=== PATIENT | female | born 1940 | race Caucasian/White ===

== ENCOUNTER 2016-10-25 14:16 | Inpatient (IN) | payer MEDICARE ==
[2016-10-25] VITALS (16 sets, daily range): BP systolic 137–198; BP diastolic 65–90; PULSE 62–84; RESP 18–22; TEMP 98.7–100.3; O2SAT 90–100
[~2016-10-25] VITALS: Ht 157.5 cm; Wt 88.6 kg
[~2016-10-25 14:16] MED LIST: ADVA250A INH; ATEN25TA PO; DIAZ5TAB PO; FURO1TAB62 PO; HYDR-3583 PO; HYDR25TA5 PO; LOVA20TA PO; OMEP20TA PO; VENTAER INH; ZETI10TA5 PO; ZOLO100T PO
[2016-10-25 14:53] LABS: MEAN CORPUSCULAR HGB CONC 29.1 % (32.0-36.0)
--- NOTE | 2016-10-25 14:54 | PD ---
HPI Chief Complaint: Respiratory Symptoms Time Seen by Provider: 14:32 Travel History International Travel<30 days: No Contact w/Intl Traveler<30days: No Traveled to known affect area: No History of Present Illness HPI 76yo F with PMH of COPD on home O2 4L NC, ?CHF but chronic bilateral lower ext edema, HTN, DM was sent here for hypoxemia. Pt has a visiting nurse that comes to check on her and as per my nurse, her O2 sat was in the 60s at home and it was in the 80s on 4 L NC. Pt placed on BIPAP and saturating at 94-95% on 50% Fi O2. Pt states she had chest pain this morning but denies any sob, fever, cough, n/v, abdominal pain. PFSH Past Medical History Blood Disorders: No Anxiety: Yes Depression: Yes Cancer: No Congestive Heart Failure: Yes COPD: Yes Diabetes: Yes Endocrine: No GERD: Yes Genitourinary: No Hiatal Hernia: Yes Hypertension: Yes Immune Disorder: No Neurologic: No Reproductive: No Respiratory: Yes Menopausal: Yes Past Surgical History Body Medical Devices: CERVICAL FUSION Other Surgery: Yes (RIGHT KNEE) Social History Alcohol Use: No Tobacco Use: No Substance Use: No Allergies-Medications (Allergen,Severity, Reaction): Coded Allergies: Scallop (Verified Allergy, Mild, CONFUSION, 04/30/16) Reported Meds & Prescriptions Reported Meds & Active Scripts Active Reported Metformin (Metformin HCl) 1,000 Mg Tab 1,000 Mg PO DAILYPC BREAKFAST With a meal Metformin (Metformin HCl) 500 Mg Tab 500 Mg PO DAILYPC EVENING MEAL With a meal Lisinopril 10 Mg Tab 10 Mg PO DAILY Lovastatin 40 Mg Tab 80 Mg PO DAILY Alprazolam 0.5 Mg Tab 0.5 Mg PO HS Ventolin Hfa 18 GM Inh (Albuterol Sulfate) 90 Mcg/Act Aer 2 Puff INH DAILY Advair Diskus Inh (Fluticasone-Salmeterol Inh) 250-50 Mcg/Blist Aer 1 Puff INH BID Rinse mouth after use. Hydrocodone-Acetaminophen 10-325 mg Tab 1 Tab PO BID Diazepam 5 Mg Tab 5 Mg PO DAILY Zoloft (Sertraline HCl) 100 Mg Tab 100 Mg PO BID Omeprazole 20 Mg Tab 20 Mg PO DAILY Hydrochlorothiazide 25 Mg Tab 25 Mg PO DAILY Lasix (Furosemide) 20 Mg Tab 20 Mg PO DAILY Zetia (Ezetimibe) 10 Mg Tab 10 Mg PO DAILY Atenolol 25 Mg Tab 25 Mg PO DAILY Review of Systems Except as stated in HPI: all other systems reviewed are Neg Physical Exam Narrative GEN: 76yo F in moderate distress. SKIN: Warm and dry. HEAD: Normocephalic, atraumatic. ENT: Throat: Clear. Eyes: Pupils 3mm bilaterally and reactive to light. NECK: Trachea midline. No JVD. CV: S1, S2. Lungs: Crackles in lung bases. +Accessory muscle use. RR: 30s. Abd: soft, NT/ND. No rebound tenderness or guarding. EXT: Bilateral lower ext edema. NEURO: AAOx2. No focal neurologic deficits. Data Data Last Documented VS Vital Signs Date Time Temp Pulse Resp B/P Pulse Ox O2 Delivery O2 Flow Rate FiO2 10/25/16 16:40 80 20 137/89 97 BiPAP 50 10/25/16 14:26 98.7 Orders Electrocardiogram (10/25/16 ) Complete Blood Count With Diff (10/25/16 14:51) Basic Metabolic Panel (Bmp) (10/25/16 14:51) B-Type Natriuretic Peptide (10/25/16 14:51) Act Partial Throm Time (Ptt) (10/25/16 14:51) Prothrombin Time / Inr (Pt) (10/25/16 14:51) Magnesium (Mg) (10/25/16 14:51) Ckmb (Isoenzyme) Profile (10/25/16 14:51) Troponin I (10/25/16 14:51) Arterial Blood Gas (Abg) (10/25/16 14:51) Blood Culture (10/25/16 14:51) Iv Access Insert/Monitor (10/25/16 14:51) Ecg Monitoring (10/25/16 14:51) Oximetry (10/25/16 14:51) Oxygen Administration (10/25/16 14:51) Chest, Single Ap (10/25/16 14:51) Sodium Chloride 0.9% Flush (Ns Flush) (10/25/16 15:00) Furosemide Inj (Lasix Inj) (10/25/16 15:00) Methylprednisolone So Succ Inj (Solumedr (10/25/16 15:00) Albuterol-Ipratropium Neb (Duoneb Neb) (10/25/16 15:00) Resp Bipap / Cpap Non Invas Vt (10/25/16 14:51) Arterial Blood Gas (Abg) (10/25/16 ) Urinary Catheter Insert/Apply (10/25/16 16:37) Admit Order (Ed Use Only) (10/25/16 17:28) Labs Laboratory Tests Test 10/25/16 10/25/16 10/25/16 14:10 15:50 16:45 White Blood Count 5.0 TH/MM3 Red Blood Count 3.60 MIL/MM3 Hemoglobin 8.1 GM/DL Hematocrit 27.7 % Mean Corpuscular Volume 76.9 FL Mean Corpuscular Hemoglobin 22.4 PG Mean Corpuscular Hemoglobin 29.1 % Concent Red Cell Distribution Width 19.1 % Platelet Count 256 TH/MM3 Mean Platelet Volume 7.4 FL Neutrophils (%) (Auto) 79.6 % Lymphocytes (%) (Auto) 9.4 % Monocytes (%) (Auto) 8.8 % Eosinophils (%) (Auto) 1.9 % Basophils (%) (Auto) 0.3 % Neutrophils # (Auto) 4.0 TH/MM3 Lymphocytes # (Auto) 0.5 TH/MM3 Monocytes # (Auto) 0.4 TH/MM3 Eosinophils # (Auto) 0.1 TH/MM3 Basophils # (Auto) 0.0 TH/MM3 CBC Comment DIFF FINAL Differential Comment Prothrombin Time 10.1 SEC Prothromb Time International 0.9 RATIO Ratio Activated Partial 24.0 SEC Thromboplast Time Sodium Level 143 MEQ/L Potassium Level 4.7 MEQ/L Chloride Level 98 MEQ/L Carbon Dioxide Level GREATER THAN 45.0 MEQ/L Anion Gap 0 MEQ/L Blood Urea Nitrogen 17 MG/DL Creatinine 0.85 MG/DL Estimat Glomerular Filtration 65 ML/MIN Rate Random Glucose 130 MG/DL Calcium Level 8.2 MG/DL Magnesium Level 2.5 MG/DL Total Creatine Kinase 52 U/L Troponin I 0.02 NG/ML B-Type Natriuretic Peptide 314 PG/ML Blood Gas Puncture Site RT RADIAL RT RADIAL Blood Gas Patient Temperature 98.6 98.6 Blood Gas HCO3 44 mmol/L 44 mmol/L Blood Gas Base Excess 16.3 mmol/L 16.1 mmol/L Blood Gas Oxygen Saturation 88 % 92 % Arterial Blood pH 7.24 7.23 Arterial Blood Partial 107 mmHg 110 mmHg Pressure CO2 Arterial Blood Partial 66 mmHG 77 mmHG Pressure O2 Arterial Blood Oxygen Content 10.5 Vol % 11.3 Vol % Arterial Blood 2.3 % 2.2 % Carboxyhemoglobin Arterial Blood Methemoglobin 0.6 % 0.5 % Blood Gas Hemoglobin 8.4 G/DL 8.7 G/DL Oxygen Delivery Device BIPAP BIPAP Blood Gas Ventilator Setting EPAP 6/IPAP 12 EPAP 6/IPAP15 Blood Gas Inspired Oxygen 40 % 50 % MDM Medical Decision Making Medical Screen Exam Complete: Yes Emergency Medical Condition: Yes Interpretation(s) EKG: NSR 87bpm. Normal axis. No ST segment elevation or depression. Differential Diagnosis Hypercapnic respiratory failure vs. hypoxic respiratory failure vs. COPD exacerbation vs. CHF exacerbation Narrative Course 76yo F with hypoxemia found on pulse ox at home from visiting nurse was sent here for further evaluation. Pt is AAOx2 and following commands. Pt was placed on 100% nonrebreather by nurse when I went to evaluate her because she was saturating in the 80s on 4 L NC. Pt uses 4 L NC at home. Labs reviewed, no leukocytosis. H/H low at 8.1/27.7 but pt had that before. BNP mildly elevated at 314. Troponin negative. Pt given lasix 40mg IV and soni catheter placed. Pt able to diuresis about 1200cc of urine and feels better. CXR showed cardiomegaly with interstitial edema. Small to moderate left pleural effusion and probable adjacent atelectasis. ABG showed hypercapnia with CO2 107 and O2 sat 88. pH of 7.24. This was on BIPAP 12/6 at 40%. I changed the setting to BIPAP 15/6 with Fi O2 50%. Pt was reevaluated at bedside and is doing better on the BIPAP. Pt is still AAOx2, following commands and states she feels better. At this time, I am going to repeat ABG with this new setting since pt is improving clinically. Repeat ABG essentially unchanged from the first one. Pt reevaluated at bedside and is still AAOx2, states she is feeling better and doing well. Pt is following command and has good mental status. Discussed with Dr. Harley and she said her colleague Dr. Jurado will see her. Will continue to monitor mental status and intubate if mental status deteriorates. Pt reevaluated at bedside and around 6:30pm, pt pulled out her mask and started pulling at her wires. Pt is now AAOx1 and more confused than before. Pt emergently intubated with succinylcholine and etomidate. I called Dr. Jurado and updated him on her status. CXR ordered. CXR showed interval intubation. Slight worsening aeration. Critical Care Narrative Aggregate critical care time was 90 minutes. Time to perform other separately billable procedures was not included in the critical care time. My time did not include minutes spent treating any other patients simultaneously or on activities that did not directly contribute to the patient's treatment. The services I provided to this patient were to treat and/or prevent clinically significant deterioration that could result in: cardiovascular collapse or . I provided critical care services requiring my management, as noted below: Chart data review, documentation time, medication orders and management, vital sign assessments/reviewing monitor data, ordering and reviewing lab tests, ordering and interpreting/reviewing x-rays and diagnostic studies, care of the patient and discussion of the patient with the admitting physicians. Procedures Procedure Narrative The patient was put in optimal position for the procedure. Rapid sequence intubation was initiated by me using 20 milligrams of etomidate IV and 100 milligrams of succinylcholine IV. The patient was intubated with a 7.5 cuffed endotracheal tube. Tube placement was confirmed by visualization of the tube and balloon passing through the cords, capnometry and subsequent chest x-ray. Breath sounds were equal and well aerated bilaterally postintubation. No breath sounds over stomach. Patient tolerated procedure well. Diagnosis Primary Impression: Hypercapnic respiratory failure Qualified Code: J96.22 - Acute on chronic respiratory failure with hypercapnia Admitting Information Admitting Physician Requests: Coleen Braxton DO October 25, 2016 14:54
[2016-10-25] MEDS ORDERED: FUROSEMIDE 40 MG/4 ML VIAL IVP ONE (15:00)
[2016-10-25] MEDS ORDERED: SODIUM CHLORIDE 0.9% FLUSH 10 ML FLUSH IVF PRN (15:00)
[2016-10-25] MEDS ORDERED: methylPREDNISolone SOD SUCC 125 MG/2 ML VIAL IVP ONE (15:00)
[2016-10-25] MEDS: RESP: ALBUTEROL 2.5 MG/IPRATROPIUM 0.5 MG NEB (SCH) INH ×2 (15:39→15:40)
[2016-10-25 15:48] LABS: BASOPHIL % 0.3 % (0.0-2.0); EOSINOPHIL # 0.1 TH/MM3 (0-0.4); EOSINOPHIL % 1.9 % (0.0-4.0); HEMATOCRIT 27.7 % (35.0-46.0); LYMPH % 9.4 % (9.0-44.0); LYMPHOCYTE # 0.5 TH/MM3 (1.0-4.8); MEAN CELL VOLUME 76.9 FL (80.0-100.0); MEAN CORPUSCULAR HEMOGLOBIN 22.4 PG (27.0-34.0); MONO % 8.8 % (0.0-8.0); NEUT % 79.6 % (16.0-70.0); PLATELET COUNT 256 TH/MM3 (150-450); RED CELL DISTRIBUTION WIDTH 19.1 % (11.6-17.2)
[2016-10-25 15:49] LABS: HEMO FLAGS DIFF FINAL
[2016-10-25 15:59] LABS: INTERNATIONAL NORMALIZED RATIO 0.9 RATIO; PROTHROMBIN TIME - PATIENT 10.1 SEC (9.8-11.6)
--- NOTE | 2016-10-25 15:59 | RADRPT ---
EXAM DATE/TIME: 10/25/2016 15:39 [facility] COMPARISON: CHEST SINGLE AP, September 10, 2013, 21:38. INDICATIONS : Short of breath, lower extremity edema MEDICAL HISTORY : cardiomegaly SURGICAL HISTORY : cervical spine ENCOUNTER: Initial ACUITY: 1 day PAIN SCORE: Non-responsive. LOCATION: Bilateral chest FINDINGS: A single view of the chest demonstrates small moderate left pleural effusion with left basilar densit y. Heart enlarged. Slight interstitial edema. Pulmonary arteries appear enlarged. Osseous structures are intact. CONCLUSION: 1. Cardiomegaly with interstitial edema. 2. Small to moderate left pleural effusion and probable adjacent atelectasis. David Quintana MD on October 25, 2016 at 15:56 Board Certified Radiologist. This report was verified electronically.
[2016-10-25 16:05] LABS: BLOOD GAS BASE EXCESS 16.3 mmol/L (-2-2); BLOOD GAS CARBOXYHEMOGLOBIN 2.3 % (0-4); BLOOD GAS HCO3 44 mmol/L (22-26); BLOOD GAS METHEMOGLOBIN 0.6 % (0-2); BLOOD GAS O2 HGB SATURATION 88 % (90-100); BLOOD GAS OXYGEN CONTENT 10.5 Vol % (12.0-20.0); BLOOD GAS PCO2 107 mmHg (38-42); BLOOD GAS PO2 66 mmHG (61-120); BLOOD GAS TOTAL HGB 8.4 G/DL (12.0-16.0); CRITICAL VALUE YES; DRAW SITE RT RADIAL; FIO2 40 %; NUMBER OF ARTERIAL PUNCTURES 1; OXYGEN DEVICE BIPAP; TEMP CORR TO 98.6; VENT SETTINGS EPAP 6/IPAP 12
[2016-10-25 16:06] LABS: STAT YES; ULNAR PULSE PRESENT
[2016-10-25 16:16] LABS: BLOOD UREA NITROGEN 17 MG/DL (7-18); CHLORIDE 98 MEQ/L (98-107); GLOMERULAR FILTRATION RATE 65 ML/MIN (>89); MAGNESIUM 2.5 MG/DL (1.5-2.5); POTASSIUM 4.7 MEQ/L (3.5-5.1); SODIUM (NA) 143 MEQ/L (136-145)
[2016-10-25] MEDS ORDERED: ALPR0.5T3 PO (16:18)
[2016-10-25] MEDS ORDERED: LOVA40TA PO ×2 (16:18→16:23)
[2016-10-25 16:19] LABS: ANION GAP 0 MEQ/L (5-15); BICARBONATE GREATER THAN 45.0 MEQ/L (21.0-32.0); CREATINE KINASE 52 U/L (26-192)
[2016-10-25] MEDS ORDERED: METF500T PO (16:23)
[2016-10-25] MEDS ORDERED: METF1000 PO (16:23)
[2016-10-25] MEDS ORDERED: LISI10TA3 PO (16:23)
[2016-10-25 16:56] LABS: BLOOD GAS BASE EXCESS 16.1 mmol/L (-2-2); BLOOD GAS CARBOXYHEMOGLOBIN 2.2 % (0-4); BLOOD GAS HCO3 44 mmol/L (22-26); BLOOD GAS METHEMOGLOBIN 0.5 % (0-2); BLOOD GAS O2 HGB SATURATION 92 % (90-100); BLOOD GAS OXYGEN CONTENT 11.3 Vol % (12.0-20.0); BLOOD GAS PCO2 110 mmHg (38-42); BLOOD GAS PO2 77 mmHG (61-120); BLOOD GAS TOTAL HGB 8.7 G/DL (12.0-16.0); TEMP CORR TO 98.6
[2016-10-25 16:59] LABS: CRITICAL VALUE YES; DRAW SITE RT RADIAL; FIO2 50 %; NUMBER OF ARTERIAL PUNCTURES 1; OXYGEN DEVICE BIPAP; STAT YES; ULNAR PULSE PRESENT; VENT SETTINGS EPAP 6/IPAP15
[2016-10-25] MEDS ORDERED: ETOMIDATE 20 MG/10 ML VIAL ONE (18:33)
[2016-10-25] MEDS ORDERED: SUCCINYLCHOLINE CHLORIDE 200 MG/10 ML VIAL ONE (18:34)
[2016-10-25] MEDS ORDERED: PROPOFOL 500 MG/50 ML INJ 50 ML ONE (18:41)
[2016-10-25] MEDS ORDERED: PROPOFOL 1000 MG/100 ML INJ 100 ML ONE (18:41)
[2016-10-25] MEDS ORDERED: SUCCINYLCHOLINE CHLORIDE 200 MG/10 ML VIAL IV PUSH ONE (18:45)
[2016-10-25] MEDS ORDERED: ETOMIDATE 20 MG/10 ML VIAL IV PUSH ONE (18:45)
[2016-10-25] MEDS ORDERED: PROPOFOL 1000 MG/100 ML INJ 100 ML IV SCH (19:00)
[2016-10-25] MEDS ORDERED: SODIUM CHLOR 0.9% 1000 ML INJ 1,000 ML IV SCH (19:18)
--- NOTE | 2016-10-25 19:21 | RADRPT ---
EXAM DATE/TIME: 10/25/2016 19:04 [facility] COMPARISON: CHEST SINGLE AP, October 25, 2016, 15:39. INDICATIONS : Post intubation. MEDICAL HISTORY : Cardiomegaly. SURGICAL HISTORY : Cervical spine surgery. ENCOUNTER: Initial ACUITY: 1 day PAIN SCORE: Non-responsive. LOCATION: Bilateral chest FINDINGS: Endotracheal tube is present with tip several centimeters above the chani. There is persistent conso lidation in the left lung base and developing airspace disease in the right base. Cardiac contours ar e grossly stable. CONCLUSION: Interval intubation. Slight worsening aeration Marv Humphrey MD on October 25, 2016 at 19:17 Board Certified Radiologist. This report was verified electronically.
--- NOTE | 2016-10-25 19:29 | HHI.HP ---
HPI Service Critical Care Medicine Primary Care Physician Jaiden Kate MD Admission Diagnosis Hypercapnic repsiratory failure Diagnosis: Travel History International Travel<30 Days: No Contact w/Intl Traveler <30 Da: No Traveled to Known Affected Are: No History of Present Illness 76-year-old female with past medical history of COPD on home O2 4 L nasal cannula, history of CHF with chronic lower extremity edema hypertension diabetes presented to emergency room with complaints of hypoxemia and shortness of breath. In the emergency room she initially responded well to BiPAP treatment however later her altered mental status worsened and she required intubation for an airway protection. Review of Systems ROS Unable to obtain patient is sedated and intubated Past Family Social History Allergies: Coded Allergies: Scallop (Verified Allergy, Mild, CONFUSION, 04/30/16) Past Medical History Hypertension GERD Anxiety/depression. Diabetes. COPD on home O2 Past Surgical History Unobtainable Reported Medications Reported Meds & Active Scripts Active Reported Metformin (Metformin HCl) 1,000 Mg Tab 1,000 Mg PO DAILYPC BREAKFAST With a meal Metformin (Metformin HCl) 500 Mg Tab 500 Mg PO DAILYPC EVENING MEAL With a meal Lisinopril 10 Mg Tab 10 Mg PO DAILY Lovastatin 40 Mg Tab 80 Mg PO DAILY Alprazolam 0.5 Mg Tab 0.5 Mg PO HS Ventolin Hfa 18 GM Inh (Albuterol Sulfate) 90 Mcg/Act Aer 2 Puff INH DAILY Advair Diskus Inh (Fluticasone-Salmeterol Inh) 250-50 Mcg/Blist Aer 1 Puff INH BID Rinse mouth after use. Hydrocodone-Acetaminophen 10-325 mg Tab 1 Tab PO BID Diazepam 5 Mg Tab 5 Mg PO DAILY Zoloft (Sertraline HCl) 100 Mg Tab 100 Mg PO BID Omeprazole 20 Mg Tab 20 Mg PO DAILY Hydrochlorothiazide 25 Mg Tab 25 Mg PO DAILY Lasix (Furosemide) 20 Mg Tab 20 Mg PO DAILY Zetia (Ezetimibe) 10 Mg Tab 10 Mg PO DAILY Atenolol 25 Mg Tab 25 Mg PO DAILY Active Ordered Medications Current Medications Medications (Trade) Dose Ordered Sig/Enio Route PRN Reason Start Time Stop Time Status Last Admin Dose Admin Sodium Chloride (NS 1000 ml Inj) 1,000 ml @ 84 mls/hr [id number] IV 10/25/16 19:18 10/25/16 19:18 Sodium Chloride (NS Flush) 2 ml UNSCH PRN .XX FLUSH AFTER USING IV ACCESS 10/25/16 19:30 Sodium Chloride (NS Flush) 2 ml BID .XX 10/25/16 21:00 10/25/16 23:09 Acetaminophen (Tylenol) 650 mg Q6H PRN PO PAIN 1-5 AND/OR FEVER >101F 10/25/16 19:30 Morphine Sulfate (Morphine Inj) 2 mg Q2H PRN IV PAIN SCALE 6 TO 10 10/25/16 19:30 10/25/16 23:05 Famotidine (Pepcid Inj) 20 mg Q12HR IV PUSH 10/25/16 21:00 10/25/16 23:44 Midazolam HCl (Versed Inj) 2 mg Q1H PRN IV SEDATION 10/25/16 19:30 10/26/16 00:07 Artificial Tears (Tears Naturale Opth Soln) 1 drop TID EACH EYE 10/26/16 09:00 Ondansetron HCl (Zofran Inj) 4 mg Q6H PRN IV NAUSEA OR VOMITING 10/25/16 19:30 10/25/16 21:51 Metoclopramide HCl (Reglan Inj) 10 mg Q6H PRN IV NAUSEA OR VOMITING 10/25/16 19:30 Docusate Sodium (Colace Liq) 100 mg Q12H G-TUBE 10/25/16 21:00 10/25/16 23:29 Heparin Sodium (Porcine) (Heparin Inj) 5,000 units Q12H SQ 10/25/16 21:00 10/25/16 21:00 Miscellaneous Information 1 [id number] XX 10/25/16 19:30 10/25/16 23:43 Chlorhexidine Gluconate (Chlorhexidine 2% Cloth) 3 pack Taper DAILY@04 TOP 10/26/16 04:00 10/22/17 03:59 10/25/16 22:59 Chlorhexidine Gluconate 3 pack 3 pack UNSCH PRN TOP HYGIENIC CARE 10/25/16 19:30 Propofol (Diprivan 1000 Mg/100ml Inj) 100 ml @ 0 mls/hr TITRATE IV 10/25/16 19:30 10/25/16 22:59 Atenolol (Tenormin) 25 mg DAILY PO 10/26/16 09:00 EZETIMIBE (Zetia) 10 mg DAILY PO 10/26/16 09:00 Hydrochlorothiazide (Hydrodiuril) 25 mg DAILY PO 10/26/16 09:00 Lisinopril (Prinivil) 10 mg DAILY PO 10/26/16 09:00 Pravastatin Sodium (Pravachol) 80 mg DAILY PO 10/26/16 09:00 Sertraline HCl (Zoloft) 100 mg BID PO 10/25/16 21:00 10/25/16 23:44 Budesonide/ Formoterol Fumarate (Symbicort 160-4.5 Inh) 2 puff BID INH 10/25/16 21:00 Dextrose (D50w (Vial) Inj) 25 ml UNSCH PRN IV PUSH HYPOGLYCEMIA-SEE COMMENTS 10/25/16 19:30 Glucagon 1 mg 1 mg UNSCH PRN OTHER HYPOGLYCEMIA-SEE COMMENTS 10/25/16 19:30 Acetazolamide Sodium/Sodium Chloride (Diamox Inj/NS Inj) 50 ml @ 100 mls/hr Q12HR IV 10/25/16 21:00 10/25/16 23:44 Prednisone 40 mg 40 mg DAILY PO 10/26/16 09:00 Levofloxacin/ Dextrose (Levaquin 500 Mg Premix Inj) 100 ml @ 100 mls/hr Q24H IV 10/25/16 20:00 10/25/16 20:00 Family History Unobtainable Social History Negative Physical Exam Vital Signs Vital Signs Date Time Temp Pulse Resp B/P Pulse Ox O2 Delivery O2 Flow Rate FiO2 10/25/16 18:50 99 50 10/25/16 17:48 80 18 137/89 97 BiPAP 50 10/25/16 16:40 80 20 137/89 97 BiPAP 50 10/25/16 16:20 96 50 10/25/16 15:39 BiPAP 10/25/16 14:50 90 50 10/25/16 14:26 98.7 84 22 147/65 100 Physical Exam GENERAL: Elderly obese female sedated and intubated SKIN: Warm and dry. HEAD: Normocephalic. EYES: No scleral icterus. No injection or drainage. NECK: Supple, trachea midline. No JVD or lymphadenopathy. CARDIOVASCULAR: Regular rate and rhythm without murmurs, gallops, or rubs. RESPIRATORY: Breath sounds equal bilaterally. No accessory muscle use. GASTROINTESTINAL: Abdomen soft, non-tender, nondistended. MUSCULOSKELETAL: No cyanosis, or edema. BACK: Nontender without obvious deformity. No CVA tenderness. EXTREMITIES: 2+ pitting edema up to her knees Laboratory Laboratory Tests Test 10/25/16 10/25/16 10/25/16 14:10 15:50 16:45 White Blood Count 5.0 Red Blood Count 3.60 Hemoglobin 8.1 Hematocrit 27.7 Mean Corpuscular Volume 76.9 Mean Corpuscular Hemoglobin 22.4 Mean Corpuscular Hemoglobin 29.1 Concent Red Cell Distribution Width 19.1 Platelet Count 256 Mean Platelet Volume 7.4 Neutrophils (%) (Auto) 79.6 Lymphocytes (%) (Auto) 9.4 Monocytes (%) (Auto) 8.8 Eosinophils (%) (Auto) 1.9 Basophils (%) (Auto) 0.3 Neutrophils # (Auto) 4.0 Lymphocytes # (Auto) 0.5 Monocytes # (Auto) 0.4 Eosinophils # (Auto) 0.1 Basophils # (Auto) 0.0 CBC Comment DIFF FINAL Differential Comment Prothrombin Time 10.1 Prothromb Time International 0.9 Ratio Activated Partial 24.0 Thromboplast Time Sodium Level 143 Potassium Level 4.7 Chloride Level 98 Carbon Dioxide Level GREATER THAN 45.0 Anion Gap 0 Blood Urea Nitrogen 17 Creatinine 0.85 Estimat Glomerular Filtration 65 Rate Random Glucose 130 Calcium Level 8.2 Magnesium Level 2.5 Total Creatine Kinase 52 Troponin I 0.02 B-Type Natriuretic Peptide 314 Blood Gas Puncture Site RT RADIAL RT RADIAL Blood Gas Patient Temperature 98.6 98.6 Blood Gas HCO3 44 44 Blood Gas Base Excess 16.3 16.1 Blood Gas Oxygen Saturation 88 92 Arterial Blood pH 7.24 7.23 Arterial Blood Partial 107 110 Pressure CO2 Arterial Blood Partial 66 77 Pressure O2 Arterial Blood Oxygen Content 10.5 11.3 Arterial Blood 2.3 2.2 Carboxyhemoglobin Arterial Blood Methemoglobin 0.6 0.5 Blood Gas Hemoglobin 8.4 8.7 Oxygen Delivery Device BIPAP BIPAP Blood Gas Ventilator Setting EPAP 6/IPAP 12 EPAP 6/IPAP15 Blood Gas Inspired Oxygen 40 50 Date/Time Procedure Status Source Growth 10/25/16 14:10 Aerobic Blood Culture Received Blood Peripheral Pending 10/25/16 14:10 Anaerobic Blood Culture Received Blood Peripheral Pending Result Diagram: 10/25/16 1410 10/25/16 1410 Imaging Last 24 hours Impressions Chest X-Ray 10/25/16 1451 Signed Impressions: Service Date/Time: Tuesday, October 25, 2016 15:39 - CONCLUSION: 1. Cardiomegaly with interstitial edema. 2. Small to moderate left pleural effusion and probable adjacent atelectasis. David Quintana MD Assessment and Plan Assessment and Plan Respiratory failure - COPD exacerbation - Continue mechanical ventilation - Respiratory acidosis with metabolic alkalosis - No weaning until acid-base disturbance resolved - Antibiotics - Steroid - DuoNeb's Metabolic alkalosis - Gentle diuresis - IV Diamox Hypertension - Atenolol - Hydrochlorothiazide - Hold Lasix due to alkalosis Depression/anxiety - Sertraline DVT GI prophylaxis - Subcutaneous heparin and omeprazole Critical Care: The total critical care time was 35 minutes. Time to perform other separately billable procedures was not included in the critical care time. Saul Jurado MD October 25, 2016 19:29
[2016-10-25] MEDS ORDERED: CHLORHEXIDINE GLUCONATE 2 % 1 PACK (2 CLOTHS) TOP PRN (19:30)
[2016-10-25] MEDS ORDERED: SODIUM CHLORIDE 0.9% FLUSH 10 ML FLUSH PRN (19:30)
[2016-10-25] MEDS ORDERED: DEXTROSE 50% IN WATER 50 ML VIAL(D50) IV PUSH PRN (19:30)
[2016-10-25] MEDS ORDERED: MISCELLANEOUS NURSING INFORMATION XX SCH (19:30)
[2016-10-25] MEDS ORDERED: ONDANSETRON HCL 4 MG/2 ML VIAL IV PRN (19:30)
[2016-10-25] MEDS ORDERED: METOCLOPRAMIDE HCL 10 MG/2 ML VIAL IV PRN (19:30)
[2016-10-25] MEDS ORDERED: GLUCAGON 1 MG/ML VIAL OTHER PRN (19:30)
[2016-10-25] MEDS ORDERED: RESP: ALBUTEROL 2.5 MG/IPRATROPIUM 0.5 MG NEB (PRN) INH (19:30)
[2016-10-25] MEDS ORDERED: ACETAMINOPHEN 325 MG TAB PO PRN (19:30)
[2016-10-25] MEDS ORDERED: MIDAZOLAM HCL 5 MG/ML VIAL (1 ML) ONE ×2 (19:39→21:20)
[2016-10-25] MEDS: MIDAZOLAM HCL 2 MG/2 ML VIAL IV PRN ×2 (19:51→21:50)
[2016-10-25] MEDS: LEVOFLOXACIN 500 MG PREMIX INJ 100 ML IV SCH (20:00)
[2016-10-25] MEDS: RESP: ALBUTEROL 2.5 MG/IPRATROPIUM 0.5 MG NEB (SCH) NEB ×2 (20:14→23:37)
[2016-10-25 20:46] LABS: BLOOD GAS BASE EXCESS 16.6 mmol/L (-2-2); BLOOD GAS CARBOXYHEMOGLOBIN 2.3 % (0-4); BLOOD GAS HCO3 42 mmol/L (22-26); BLOOD GAS O2 HGB SATURATION 94 % (90-100); BLOOD GAS OXYGEN CONTENT 10.8 Vol % (12.0-20.0); BLOOD GAS PCO2 63 mmHg (38-42); BLOOD GAS PO2 65 mmHG (61-120); BLOOD GAS TOTAL HGB 8.1 G/DL (12.0-16.0); CRITICAL VALUE YES; OXYGEN DEVICE VENTILATOR; TEMP CORR TO 98.6
[2016-10-25 20:47] LABS: DRAW SITE RT RADIAL; FIO2 50 %; NUMBER OF ARTERIAL PUNCTURES 1; STAT YES; ULNAR PULSE PRESENT; VENT SETTINGS AC16/550 5 PEEP
[2016-10-25] MEDS: HEPARIN SODIUM - SQ 10,000 UNITS/ML VIAL SQ SCH (21:00)
[2016-10-25] MEDS: BUDESONIDE-FORMOTEROL 160/4.5 MCG INHALER INH SCH (21:00)
[2016-10-25] MEDS: INSULIN ASPART SUPPLEMENTAL SCALE SQ SCH (21:00)
[2016-10-25 21:06] LABS: MEAN CORPUSCULAR HGB CONC 28.7 % (32.0-36.0)
[2016-10-25] MEDS: PROPOFOL 1000 MG/100 ML INJ 100 ML IV SCH (22:59)
[2016-10-25] MEDS: CHLORHEXIDINE GLUCONATE 2 % 1 PACK (2 CLOTHS) TOP SCH (22:59)
[2016-10-25] MEDS: MORPHINE SULFATE 4 MG/ML INJ IV PRN (23:05)
[2016-10-25] MEDS: SODIUM CHLORIDE 0.9% FLUSH 10 ML FLUSH SCH (23:09)
[2016-10-25] MEDS: DOCUSATE SODIUM 100 MG/10 ML UDC G-TUBE SCH (23:29)
[2016-10-25] MEDS: SERTRALINE HCL 100 MG TAB PO SCH (23:44)
[2016-10-25] MEDS: acetaZOLAMIDE INJ 250 MG in SODIUM CHLORIDE 0.9% INJ 50 ML IV SCH (23:44)
[2016-10-25] MEDS: FAMOTIDINE 20 MG/2 ML VIAL IV PUSH SCH (23:44)
[2016-10-26] VITALS (21 sets, daily range): BP systolic 125–186; BP diastolic 58–75; PULSE 55–78; RESP 12–21; TEMP 97.8–100.3; O2SAT 96–100
[2016-10-26] MEDS: MIDAZOLAM HCL 2 MG/2 ML VIAL IV PRN (00:07)
[2016-10-26 01:54] LABS: ALT (GPT) 12 U/L (10-53); ANION GAP 7 MEQ/L (5-15); AST (GOT) 13 U/L (15-37); BICARBONATE 38.8 MEQ/L (21.0-32.0); BLOOD UREA NITROGEN 18 MG/DL (7-18); CHLORIDE 96 MEQ/L (98-107); GLOMERULAR FILTRATION RATE 57 ML/MIN (>89); SODIUM (NA) 142 MEQ/L (136-145)
[2016-10-26 01:58] LABS: ALKALINE PHOSPHATASE 106 U/L (45-117); TOTAL BILIRUBIN ADULT 0.4 MG/DL (0.2-1.0)
[2016-10-26] MEDS: RESP: ALBUTEROL 2.5 MG/IPRATROPIUM 0.5 MG NEB (SCH) NEB ×6 (03:48→23:44)
[2016-10-26 04:18] LABS: AUTOMATED NEUTROPHIL # 3.9 TH/MM3 (1.8-7.7); BASOPHIL % 0.4 % (0.0-2.0); EOSINOPHIL % 0.4 % (0.0-4.0); HEMATOCRIT 27.1 % (35.0-46.0); LYMPHOCYTE # 0.8 TH/MM3 (1.0-4.8); MEAN CELL VOLUME 76.6 FL (80.0-100.0); MONO % 12.3 % (0.0-8.0); NEUT % 71.9 % (16.0-70.0); PLATELET COUNT 215 TH/MM3 (150-450); RED BLOOD COUNT 3.53 MIL/MM3 (4.00-5.30); RED CELL DISTRIBUTION WIDTH 17.7 % (11.6-17.2); WHITE BLOOD COUNT 5.4 TH/MM3 (4.0-11.0)
[2016-10-26] MEDS: PROPOFOL 1000 MG/100 ML INJ 100 ML IV SCH ×4 (04:20→19:31)
[2016-10-26 04:23] LABS: HEMO FLAGS AUTO DIFF
[2016-10-26 04:46] LABS: ALKALINE PHOSPHATASE 107 U/L (45-117); ALT (GPT) 12 U/L (10-53); ANION GAP 5 MEQ/L (5-15); AST (GOT) 13 U/L (15-37); BICARBONATE 39.9 MEQ/L (21.0-32.0); BLOOD UREA NITROGEN 20 MG/DL (7-18); CHLORIDE 97 MEQ/L (98-107); GLOMERULAR FILTRATION RATE 51 ML/MIN (>89); POTASSIUM 3.8 MEQ/L (3.5-5.1); SODIUM (NA) 142 MEQ/L (136-145); TOTAL BILIRUBIN ADULT 0.5 MG/DL (0.2-1.0)
[2016-10-26 04:51] LABS: BLOOD GAS HCO3 39 mmol/L (22-26); BLOOD GAS METHEMOGLOBIN 0.6 % (0-2); BLOOD GAS O2 HGB SATURATION 95 % (90-100); BLOOD GAS PCO2 38 mmHg (38-42); BLOOD GAS PO2 68 mmHg (61-120); BLOOD GAS TOTAL HGB 8.2 G/DL (12.0-16.0); TEMP CORR TO 98.6
[2016-10-26 04:52] LABS: CRITICAL VALUE YES; DRAW SITE RT BRACHIAL; FIO2 40 %; NUMBER OF ARTERIAL PUNCTURES 1; OXYGEN DEVICE VENTILATOR; STAT NO; ULNAR PULSE PRESENT; VENT SETTINGS AC 20/550/5PEEP
[2016-10-26] MEDS: INSULIN ASPART SUPPLEMENTAL SCALE SQ SCH ×2 (05:34→10:59)
--- NOTE | 2016-10-26 06:14 | RADRPT ---
EXAM DATE/TIME: 10/26/2016 05:12 [facility] COMPARISON: CHEST SINGLE AP, October 25, 2016, 19:04. INDICATIONS : Respiratory distress. MEDICAL HISTORY : Cardiomegaly. SURGICAL HISTORY : Cervical spine surgery. ENCOUNTER: Subsequent ACUITY: 2 days PAIN SCORE: Non-responsive. LOCATION: Bilateral chest FINDINGS: A single portable frontal view the chest shows bilateral pleural effusions and bibasilar infiltrates. These are stable. Heart is normal in tip of endotracheal tube 3 cm from the chani. Tip of the NG tu be at the GE junction.CONCLUSION: 1. Unchanged bilateral pleural effusions and bibasilar infiltrates. 2. Interval placement of an NG tube. The tip is at the GE junction. Karan Wallace Jr., MD on October 26, 2016 at 6:11 Board Certified Radiologist. This report was verified electronically.
[2016-10-26 06:52] LABS: OVALOCYTES 1+ (NORMAL); SCAN/DIFF AUTO DIFF CONFIRMED
[2016-10-26] MEDS: FAMOTIDINE 20 MG/2 ML VIAL IV PUSH SCH ×2 (08:21→21:01)
[2016-10-26] MEDS: PRAVASTATIN SOD 40 MG TAB PO SCH (08:21)
[2016-10-26] MEDS: SERTRALINE HCL 100 MG TAB PO SCH ×2 (08:22→21:00)
[2016-10-26] MEDS: ATENOLOL 25 MG TAB PO SCH (08:22)
[2016-10-26] MEDS: LISINOPRIL 10 MG TAB PO SCH (08:22)
[2016-10-26] MEDS: DOCUSATE SODIUM 100 MG/10 ML UDC G-TUBE SCH ×2 (08:22→20:59)
[2016-10-26] MEDS: EZETIMIBE 10 MG TAB PO SCH (08:22)
[2016-10-26] MEDS: HEPARIN SODIUM - SQ 10,000 UNITS/ML VIAL SQ SCH ×2 (08:23→21:00)
[2016-10-26] MEDS: acetaZOLAMIDE INJ 250 MG in SODIUM CHLORIDE 0.9% INJ 50 ML IV SCH (08:23)
[2016-10-26] MEDS: SODIUM CHLORIDE 0.9% FLUSH 10 ML FLUSH SCH ×2 (08:23→21:02)
[2016-10-26] MEDS: BUDESONIDE-FORMOTEROL 160/4.5 MCG INHALER INH SCH ×2 (08:24→21:00)
[2016-10-26] MEDS: ARTIFICIAL TEARS OPTH SOLN 15 ML BTL EACH EYE SCH ×3 (08:24→18:44)
[2016-10-26] MEDS ORDERED: predniSONE 20 MG TAB PO SCH (09:00)
[2016-10-26] MEDS ORDERED: HYDROCHLOROTHIAZIDE 25 MG TAB PO SCH (09:00)
--- NOTE | 2016-10-26 11:57 | HHI.CCPN ---
Subjective Remarks/Hospital Course 76-year-old female with past medical history of COPD on home O2 4 L nasal cannula, history of CHF with chronic lower extremity edema hypertension diabetes presented to emergency room with complaints of hypoxemia and shortness of breath. In the emergency room she initially responded well to BiPAP treatment however later her altered mental status worsened and she required intubation for an airway protection. 10/26 Patient is sedated with Diprivan and intubated. Afebrile. Objective Vital Signs Date Time Temp Pulse Resp B/P Pulse Ox O2 Delivery O2 Flow Rate FiO2 10/26/16 10:00 63 10/26/16 08:50 98 40 10/26/16 08:00 100.3 12 170/74 10/26/16 07:00 Mechanical Ventilator Intake and Output 10/25/16 10/25/16 10/26/16 08:00 16:00 00:00 Output Total 1450 ml Balance -1450 ml Result Diagram: 10/26/16 0343 10/26/16 0343 Other Results Laboratory Tests Test 10/25/16 10/25/16 10/25/16 10/25/16 14:10 15:50 16:45 19:40 White Blood Count 5.0 TH/MM3 Red Blood Count 3.60 MIL/MM3 Hemoglobin 8.1 GM/DL Hematocrit 27.7 % Mean Corpuscular Volume 76.9 FL Mean Corpuscular Hemoglobin 22.4 PG Mean Corpuscular Hemoglobin 29.1 % Concent Red Cell Distribution Width 19.1 % Platelet Count 256 TH/MM3 Mean Platelet Volume 7.4 FL Neutrophils (%) (Auto) 79.6 % Lymphocytes (%) (Auto) 9.4 % Monocytes (%) (Auto) 8.8 % Eosinophils (%) (Auto) 1.9 % Basophils (%) (Auto) 0.3 % Neutrophils # (Auto) 4.0 TH/MM3 Lymphocytes # (Auto) 0.5 TH/MM3 Monocytes # (Auto) 0.4 TH/MM3 Eosinophils # (Auto) 0.1 TH/MM3 Basophils # (Auto) 0.0 TH/MM3 CBC Comment DIFF FINAL Differential Comment Prothrombin Time 10.1 SEC Prothromb Time International 0.9 RATIO Ratio Activated Partial 24.0 SEC Thromboplast Time Sodium Level 143 MEQ/L Potassium Level 4.7 MEQ/L Chloride Level 98 MEQ/L Carbon Dioxide Level GREATER THAN 45.0 MEQ/L Anion Gap 0 MEQ/L Blood Urea Nitrogen 17 MG/DL Creatinine 0.85 MG/DL Estimat Glomerular Filtration 65 ML/MIN Rate Random Glucose 130 MG/DL Calcium Level 8.2 MG/DL Magnesium Level 2.5 MG/DL Total Creatine Kinase 52 U/L Troponin I 0.02 NG/ML B-Type Natriuretic Peptide 314 PG/ML Blood Gas Puncture Site RT RADIAL RT RADIAL RT RADIAL Blood Gas Patient Temperature 98.6 98.6 98.6 Blood Gas HCO3 44 mmol/L 44 mmol/L 42 mmol/L Blood Gas Base Excess 16.3 mmol/L 16.1 mmol/L 16.6 mmol/L Blood Gas Oxygen Saturation 88 % 92 % 94 % Arterial Blood pH 7.24 7.23 7.44 Arterial Blood Partial 107 mmHg 110 mmHg 63 mmHg Pressure CO2 Arterial Blood Partial 66 mmHG 77 mmHG 65 mmHG Pressure O2 Arterial Blood Oxygen Content 10.5 Vol % 11.3 Vol % 10.8 Vol % Arterial Blood 2.3 % 2.2 % 2.3 % Carboxyhemoglobin Arterial Blood Methemoglobin 0.6 % 0.5 % 0.0 % Blood Gas Hemoglobin 8.4 G/DL 8.7 G/DL 8.1 G/DL Oxygen Delivery Device BIPAP BIPAP VENTILATOR Blood Gas Ventilator Setting EPAP 6/IPAP 12 EPAP 6/IPAP15 AC16/550 5 PEEP Blood Gas Inspired Oxygen 40 % 50 % 50 % Test 10/25/16 10/26/16 10/26/16 10/26/16 20:45 00:00 01:20 03:43 Troponin I 0.03 NG/ML 0.04 NG/ML Nasal Screen MRSA (PCR) MRSA NOT DETECTED Sodium Level 142 MEQ/L 142 MEQ/L Potassium Level 4.0 MEQ/L 3.8 MEQ/L Chloride Level 96 MEQ/L 97 MEQ/L Carbon Dioxide Level 38.8 MEQ/L 39.9 MEQ/L Anion Gap 7 MEQ/L 5 MEQ/L Blood Urea Nitrogen 18 MG/DL 20 MG/DL Creatinine 0.95 MG/DL 1.05 MG/DL Estimat Glomerular Filtration 57 ML/MIN 51 ML/MIN Rate Random Glucose 138 MG/DL 103 MG/DL Calcium Level 8.1 MG/DL 7.9 MG/DL Phosphorus Level 0.5 MG/DL 0.4 MG/DL Magnesium Level 2.0 MG/DL 2.0 MG/DL Total Bilirubin 0.4 MG/DL 0.5 MG/DL Aspartate Amino Transf 13 U/L 13 U/L (AST/SGOT) Alanine Aminotransferase 12 U/L 12 U/L (ALT/SGPT) Alkaline Phosphatase 106 U/L 107 U/L Total Protein 6.1 GM/DL 6.2 GM/DL Albumin 2.7 GM/DL 2.7 GM/DL White Blood Count 5.4 TH/MM3 Red Blood Count 3.53 MIL/MM3 Hemoglobin 7.8 GM/DL Hematocrit 27.1 % Mean Corpuscular Volume 76.6 FL Mean Corpuscular Hemoglobin 22.0 PG Mean Corpuscular Hemoglobin 28.7 % Concent Red Cell Distribution Width 17.7 % Platelet Count 215 TH/MM3 Mean Platelet Volume 7.8 FL Neutrophils (%) (Auto) 71.9 % Lymphocytes (%) (Auto) 15.0 % Monocytes (%) (Auto) 12.3 % Eosinophils (%) (Auto) 0.4 % Basophils (%) (Auto) 0.4 % Neutrophils # (Auto) 3.9 TH/MM3 Lymphocytes # (Auto) 0.8 TH/MM3 Monocytes # (Auto) 0.7 TH/MM3 Eosinophils # (Auto) 0.0 TH/MM3 Basophils # (Auto) 0.0 TH/MM3 CBC Comment AUTO DIFF Differential Comment AUTO DIFF CONFIRMED Ovalocytes 1+ Test 10/26/16 04:30 Blood Gas Puncture Site RT BRACHIAL Blood Gas Patient Temperature 98.6 Blood Gas HCO3 39 mmol/L Blood Gas Base Excess 16.0 mmol/L Blood Gas Oxygen Saturation 95 % Arterial Blood pH 7.62 Arterial Blood Partial 38 mmHg Pressure CO2 Arterial Blood Partial 68 mmHg Pressure O2 Arterial Blood Oxygen Content 11.0 Vol % Arterial Blood 2.0 % Carboxyhemoglobin Arterial Blood Methemoglobin 0.6 % Blood Gas Hemoglobin 8.2 G/DL Oxygen Delivery Device VENTILATOR Blood Gas Ventilator Setting AC 20/550/5PEEP Blood Gas Inspired Oxygen 40 % Imaging Last Impressions Chest X-Ray 10/26/16 0000 Signed Impressions: Service Date/Time: Wednesday, October 26, 2016 05:12 - CONCLUSION: 1. Unchanged bilateral pleural effusions and bibasilar infiltrates. 2. Interval placement of an NG tube. The tip is at the GE junction. Karan Wallace Jr., MD Objective Remarks GENERAL: Elderly obese female sedated and intubated SKIN: Warm and dry. HEAD: Normocephalic. EYES: No scleral icterus. No injection or drainage. NECK: Supple, trachea midline. No JVD or lymphadenopathy. CARDIOVASCULAR: Regular rate and rhythm without murmurs, gallops, or rubs. RESPIRATORY: Breath sounds equal bilaterally. No accessory muscle use. GASTROINTESTINAL: Abdomen soft, non-tender, nondistended. EXTREMITIES: 2+ pitting edema up to her knees Neuro: Sedated, intubated A/P Assessment and Plan 1)Acute hypercapnic and hypoxemic resp failure. 2) COPD exacerbation 3)Hypertension 4)Anemia 5)Depression/anxiety Plan Neuro: On Diprivan infusion for sedation. Daily sedation vacation, Pulm: Continue with vent support keep sat >92%. Decrease RR 16 Bronchodilators, change Prednisone to Solumederol 40mg IV Q8 Start SBT daily as carmen. NIPPV PRN post extubation. CV: Monitor HR and BP keep MAP>65mmhg On Lisinopril 10mg daily, Atenolol 25mg daily, Zetia, Pravachol. Hold HCTZ : Monitor renal function, I/O's, electrolytes replacement ads needed GI: On Pepcid 20mg IV Q12, start tube feeds today if remains intubated. ID: Continue with empiric abx ( Levaquin) monitor for signs of infections ( Fever, WBC) Heme: Monitor CBC Endo: SSI with accuchecks for glycemic control GI prophylaxis- on Pepcid DVT prophylaxis- Heparin SQ Level 3 Ming Jordan MD October 26, 2016 11:57
[2016-10-26] MEDS ORDERED: DEXTROSE 50% IN WATER 50 ML VIAL(D50) IV PUSH PRN (12:15)
[2016-10-26] MEDS ORDERED: GLUCAGON 1 MG/ML VIAL OTHER PRN (12:15)
[2016-10-26 13:58] LABS: BLOOD GAS BASE EXCESS 10.9 mmol/L (-2-2); BLOOD GAS CARBOXYHEMOGLOBIN 1.9 % (0-4); BLOOD GAS HCO3 35 mmol/L (22-26); BLOOD GAS METHEMOGLOBIN 0.8 % (0-2); BLOOD GAS O2 HGB SATURATION 97 % (90-100); BLOOD GAS OXYGEN CONTENT 10.5 Vol % (12.0-20.0); BLOOD GAS PCO2 43 mmHg (38-42); BLOOD GAS PO2 112 mmHg (61-120); BLOOD GAS TOTAL HGB 7.6 G/DL (12.0-16.0); TEMP CORR TO 98.6
[2016-10-26 13:59] LABS: CRITICAL VALUE YES; DRAW SITE LT RADIAL; FIO2 40 %; NUMBER OF ARTERIAL PUNCTURES 1; OXYGEN DEVICE VENTILATOR; STAT NO; ULNAR PULSE PRESENT; VENT SETTINGS AC 16/550/PEEP5
[2016-10-26] MEDS: INSULIN NovoLIN REGULAR SUPPLEMENTAL SCALE SQ SCH ×2 (13:59→18:46)
[2016-10-26] MEDS: methylPREDNISolone SOD SUCC 40 MG/1 ML VIAL IV PUSH SCH ×2 (14:00→21:00)
[2016-10-26] MEDS ORDERED: MAGNESIUM OXIDE 400 MG TAB PO PRN (15:30)
[2016-10-26] MEDS ORDERED: MAGNESIUM SULFATE INJ 4 GM in SODIUM CHLORIDE 0.9% INJ 92 ML IV PRN (15:30)
[2016-10-26] MEDS ORDERED: POTASSIUM PHOSPHATE MONOBASIC 500 MG TAB PO PRN (15:30)
[2016-10-26] MEDS ORDERED: MAGNESIUM SULFATE INJ 2 GM in SODIUM CHLORIDE 0.9% INJ 96 ML IV PRN (15:30)
[2016-10-26] MEDS ORDERED: POTASSIUM CHLOR 20 MEQ PREMIX 100 ML IV PRN ×2 (15:30)
[2016-10-26] MEDS ORDERED: POTASSIUM PHOSPHATE MONOBASIC 500 MG TAB PO/TUBE PRN (15:30)
[2016-10-26] MEDS ORDERED: POTASSIUM CHLORIDE 25 MEQ EFFERVESCENT TAB PO PRN (15:30)
[2016-10-26] MEDS ORDERED: POTASSIUM CHLOR 40 MEQ PREMIX 100 ML IV PRN ×2 (15:30)
[2016-10-26] MEDS ORDERED: SODIUM PHOSPHATE INJ 30 MMOL in SODIUM CHLOR 0.9% 250 ML INJ 240 ML IV PRN (15:30)
--- NOTE | 2016-10-26 15:45 | EKG ---
Date Performed: 10/25/2016 Time Performed: 14:43:08 PTAGE: 76 years EKG: Sinus rhythm POSSIBLE LEFT ATRIAL ENLARGEMENT Compared to prior tracing no significant change BORDERLINE ECG PREVIOUS TRACING : 09/11/2013 12.54 DOCTOR: Felipe Pearl Interpretating Date/Time 10/26/2016 15:43:39
[2016-10-26] MEDS: hydrALAZINE HCL 20 MG/ML VIAL IV PUSH PRN (16:03)
[2016-10-26] MEDS: MORPHINE SULFATE 4 MG/ML INJ IV PRN (18:44)
[2016-10-26] MEDS: LEVOFLOXACIN 500 MG PREMIX INJ 100 ML IV SCH (21:01)
[2016-10-27] VITALS (27 sets, daily range): BP systolic 138–200; BP diastolic 63–96; PULSE 57–74; RESP 12–30; TEMP 98.2–98.4; O2SAT 92–97
[2016-10-27] MEDS: INSULIN NovoLIN REGULAR SUPPLEMENTAL SCALE SQ SCH ×5 (01:32→23:34)
[2016-10-27] MEDS: PROPOFOL 1000 MG/100 ML INJ 100 ML IV SCH (01:32)
[2016-10-27] MEDS: hydrALAZINE HCL 20 MG/ML VIAL IV PUSH PRN ×2 (01:33→09:37)
[2016-10-27] MEDS: CHLORHEXIDINE GLUCONATE 2 % 1 PACK (2 CLOTHS) TOP SCH (01:33)
[2016-10-27] MEDS: RESP: ALBUTEROL 2.5 MG/IPRATROPIUM 0.5 MG NEB (SCH) NEB ×5 (03:31→20:47)
[2016-10-27 04:19] LABS: AUTOMATED NEUTROPHIL # 5.3 TH/MM3 (1.8-7.7); BASOPHIL % 0.1 % (0.0-2.0); EOSINOPHIL % 0.1 % (0.0-4.0); HEMATOCRIT 24.7 % (35.0-46.0); LYMPH % 7.6 % (9.0-44.0); LYMPHOCYTE # 0.5 TH/MM3 (1.0-4.8); MEAN CELL VOLUME 73.1 FL (80.0-100.0); MEAN CORPUSCULAR HEMOGLOBIN 22.3 PG (27.0-34.0); MEAN CORPUSCULAR HGB CONC 30.5 % (32.0-36.0); NEUT % 86.2 % (16.0-70.0); PLATELET COUNT 212 TH/MM3 (150-450); RED BLOOD COUNT 3.38 MIL/MM3 (4.00-5.30); RED CELL DISTRIBUTION WIDTH 18.4 % (11.6-17.2); WHITE BLOOD COUNT 6.2 TH/MM3 (4.0-11.0)
[2016-10-27 04:37] LABS: HEMO FLAGS AUTO DIFF
[2016-10-27 04:44] LABS: BICARBONATE 32.4 MEQ/L (21.0-32.0); MAGNESIUM 2.1 MG/DL (1.5-2.5); POTASSIUM 3.8 MEQ/L (3.5-5.1)
[2016-10-27] MEDS: methylPREDNISolone SOD SUCC 40 MG/1 ML VIAL IV PUSH SCH ×3 (06:18→20:44)
[2016-10-27 08:03] LABS: OVALOCYTES 1+ (NORMAL); SCAN/DIFF AUTO DIFF CONFIRMED
[2016-10-27] MEDS: PRAVASTATIN SOD 40 MG TAB PO SCH (08:16)
[2016-10-27] MEDS: ATENOLOL 25 MG TAB PO SCH (08:16)
[2016-10-27] MEDS: DOCUSATE SODIUM 100 MG/10 ML UDC G-TUBE SCH ×2 (08:16→20:45)
[2016-10-27] MEDS: LISINOPRIL 10 MG TAB PO SCH (08:16)
[2016-10-27] MEDS: EZETIMIBE 10 MG TAB PO SCH (08:17)
[2016-10-27] MEDS: SERTRALINE HCL 100 MG TAB PO SCH ×2 (08:17→20:44)
[2016-10-27] MEDS: SODIUM CHLORIDE 0.9% FLUSH 10 ML FLUSH SCH ×2 (08:17→20:45)
[2016-10-27] MEDS: HEPARIN SODIUM - SQ 10,000 UNITS/ML VIAL SQ SCH ×2 (08:32→20:44)
[2016-10-27] MEDS: FAMOTIDINE 20 MG/2 ML VIAL IV PUSH SCH ×2 (08:32→20:44)
--- NOTE | 2016-10-27 09:20 | RADRPT ---
EXAM DATE/TIME: 10/27/2016 08:42 [facility] COMPARISON: CHEST SINGLE AP, October 26, 2016, 5:12. INDICATIONS : Respiratory distress. MEDICAL HISTORY : Cardiomegaly. SURGICAL HISTORY : Cervical spine surgery. ENCOUNTER: Subsequent ACUITY: 3 days PAIN SCORE: 0/10 LOCATION: Bilateral chest FINDINGS: A single view of the chest demonstrates cardiomegaly with bibasilar densities and small bilateral ple ural effusions, not significantly changed. Endotracheal tube nasogastric tube are unchanged. Osseous structures are intact. CONCLUSION: Cardiomegaly with small pleural effusions and bibasilar densities greater on the left. David Quintana MD on October 27, 2016 at 9:15 Board Certified Radiologist. This report was verified electronically.
[2016-10-27] MEDS: ARTIFICIAL TEARS OPTH SOLN 15 ML BTL EACH EYE SCH ×3 (09:35→18:00)
[2016-10-27] MEDS: BUDESONIDE-FORMOTEROL 160/4.5 MCG INHALER INH SCH ×2 (09:35→20:46)
--- NOTE | 2016-10-27 09:56 | HHI.CCPN ---
Subjective Remarks/Hospital Course 76-year-old female with past medical history of COPD on home O2 4 L nasal cannula, history of CHF with chronic lower extremity edema hypertension diabetes presented to emergency room with complaints of hypoxemia and shortness of breath. In the emergency room she initially responded well to BiPAP treatment however later her altered mental status worsened and she required intubation for an airway protection. 10/26 Patient is sedated with Diprivan and intubated. Afebrile. Subjective 10/27: Afebrile. Switch to PSV trial. Tolerating tube feeds. No bowel movement. Objective Vital Signs Date Time Temp Pulse Resp B/P Pulse Ox O2 Delivery O2 Flow Rate FiO2 10/27/16 08:02 96 40 10/27/16 06:00 65 10/27/16 04:00 98.4 12 143/63 10/26/16 19:00 Mechanical Ventilator Intake and Output 10/26/16 10/26/16 10/27/16 08:00 16:00 00:00 Intake Total 875 ml 255 ml 416 ml Output Total 1050 ml 975 ml 1000 ml Balance -175 ml -720 ml -584 ml Result Diagram: 10/27/16 0306 10/27/16 0306 Other Results Microbiology Date/Time Procedure Status Source Growth 10/25/16 14:10 Aerobic Blood Culture - Preliminary Resulted Blood Peripheral NO GROWTH IN 1 DAY 10/25/16 14:10 Anaerobic Blood Culture - Preliminary Resulted Blood Peripheral NO GROWTH IN 1 DAY Imaging Last Impressions Chest X-Ray 10/27/16 0000 Signed Impressions: Service Date/Time: Thursday, October 27, 2016 08:42 - CONCLUSION: Cardiomegaly with small pleural effusions and bibasilar densities greater on the left. David Quintana MD Objective Remarks GENERAL: 76-year-old critically ill obese female sedated and intubated SKIN: Warm and dry. HEAD: Normocephalic. EYES: No scleral icterus. No injection or drainage. NECK: Supple, trachea midline. No JVD or lymphadenopathy. CARDIOVASCULAR: Regular rate and rhythm. S1, S2 no S4 without murmur without murmurs, gallops, or rubs. RESPIRATORY: Breath sounds equal bilaterally. No accessory muscle use. GASTROINTESTINAL: Abdomen soft, non-tender, nondistended. EXTREMITIES: 2+ pitting edema up to her knees/chronic venous stasis Neuro: Cranial nerves II through XII grossly intact. Strength is equal symmetric. Withdraws to pain. A/P Assessment and Plan Neuro/Psych: Anxiety Depression Chronic benzodiazepine use Currently on On Diprivan infusion for sedation. Goal of RA SS -2 Daily sedation vacation, Continue Zoloft 100 mg daily. On Valium 5 mill grams daily and Xanax 0.5 mg as needed for anxiety Pulm: Acute on chronic hypoxemic respiratory failure COPD oxygen dependent Bilateral pleural effusions Currently on PSV trial 15/540% PRVC 16550// Bronchodilators every 4 hours and as needed Solumederol 40mg IV Q8 F/u cxr On advair 250/50 bid at home CV: Hypertension Dyslipidemia Monitor HR and BP keep MAP>65mmhg On Lisinopril 10mg daily, Atenolol 25mg daily, Zetia 10 mg daily, Pravachol. 40 mg daily for dyslipidemia continue Hold HCTZ and Lasix while receiving Diamox diuresis /FEN: Monitor renal function, I/O's, electrolytes replacement electrolyte protocol as clinically indicated GI: Continue vital 1.5 goal 50 cc an hour On Pepcid 20mg IV Q12, Colace twice a day for bowel regimen ID: Continue with empiric abx ( Levaquin) monitor for signs of infections ( Fever, WBC) Heme: Microcytic anemia Monitor CBC Endo: SSI with accuchecks for glycemic control GI prophylaxis- on Pepcid DVT prophylaxis- Heparin SQ Level 3 Trae Gaston MD October 27, 2016 09:56 SSI with accuchecks for glycemic control GI prophylaxis- on Pepcid DVT prophylaxis- Heparin SQ Level 3 Trae Gaston MD October 27, 2016 09:56
[2016-10-27] MEDS ORDERED: RESP: BUDESONIDE 0.5 MG/2 ML NEB NEB SCH (20:00)
[2016-10-27] MEDS: LEVOFLOXACIN 500 MG PREMIX INJ 100 ML IV SCH (20:44)
[2016-10-27] MEDS: NYSTATIN 100,000 U/GM PWD 15 GM BTL TOPICAL SCH (20:45)
[2016-10-27 21:09] LABS: MEAN CORPUSCULAR HGB CONC 28.9 % (32.0-36.0)
[2016-10-28] VITALS (16 sets, daily range): BP systolic 134–175; BP diastolic 61–96; PULSE 64–80; RESP 18–37; TEMP 97.8–98.6; O2SAT 93–98
[2016-10-28] MEDS: RESP: ALBUTEROL 2.5 MG/IPRATROPIUM 0.5 MG NEB (SCH) NEB ×6 (01:13→22:40)
[2016-10-28 03:44] LABS: AUTOMATED NEUTROPHIL # 7.8 TH/MM3 (1.8-7.7); BASOPHIL % 0.2 % (0.0-2.0); EOSINOPHIL % 0.1 % (0.0-4.0); HEMATOCRIT 28.3 % (35.0-46.0); LYMPH % 4.6 % (9.0-44.0); LYMPHOCYTE # 0.4 TH/MM3 (1.0-4.8); MEAN CELL VOLUME 75.3 FL (80.0-100.0); MEAN CORPUSCULAR HEMOGLOBIN 21.7 PG (27.0-34.0); MONO % 5.8 % (0.0-8.0); NEUT % 89.3 % (16.0-70.0); PLATELET COUNT 223 TH/MM3 (150-450); RED BLOOD COUNT 3.76 MIL/MM3 (4.00-5.30); RED CELL DISTRIBUTION WIDTH 18.7 % (11.6-17.2); WHITE BLOOD COUNT 8.7 TH/MM3 (4.0-11.0)
[2016-10-28 03:46] LABS: PROTHROMBIN TIME - PATIENT 10.6 SEC (9.8-11.6)
[2016-10-28 03:49] LABS: HEMO FLAGS AUTO DIFF
[2016-10-28 04:00] LABS: ANION GAP 5 MEQ/L (5-15); AST (GOT) 10 U/L (15-37); BICARBONATE 32.5 MEQ/L (21.0-32.0); BLOOD UREA NITROGEN 25 MG/DL (7-18); CHLORIDE 103 MEQ/L (98-107); GLOMERULAR FILTRATION RATE 60 ML/MIN (>89); MAGNESIUM 2.5 MG/DL (1.5-2.5); POTASSIUM 4.2 MEQ/L (3.5-5.1); SODIUM (NA) 140 MEQ/L (136-145)
[2016-10-28] MEDS: CHLORHEXIDINE GLUCONATE 2 % 1 PACK (2 CLOTHS) TOP SCH (04:00)
[2016-10-28 04:03] LABS: ALKALINE PHOSPHATASE 104 U/L (45-117); ALT (GPT) 11 U/L (10-53); TOTAL BILIRUBIN ADULT 0.2 MG/DL (0.2-1.0)
--- NOTE | 2016-10-28 05:07 | RADRPT ---
EXAM DATE/TIME: 10/28/2016 03:40 [facility] COMPARISON: CHEST SINGLE AP, October 27, 2016, 8:42. INDICATIONS : Shortness of breath, possible pulmonary disease. MEDICAL HISTORY : None. SURGICAL HISTORY : None. ENCOUNTER: Subsequent ACUITY: 4 - 6 days PAIN SCORE: Non-responsive. LOCATION: Bilateral chest FINDINGS: Single portable frontal view the chest shows chronic elevation of the left hemidiaphragm. No discrete infiltrate or effusion seen on the current study. Mild cardiomegaly. CONCLUSION: No discrete infiltrate or effusion. Karan Wallace Jr., MD on October 28, 2016 at 5:05 Board Certified Radiologist. This report was verified electronically.
[2016-10-28] MEDS: methylPREDNISolone SOD SUCC 40 MG/1 ML VIAL IV PUSH SCH ×3 (05:14→21:45)
[2016-10-28 05:21] LABS: SCAN/DIFF AUTO DIFF CONFIRMED
[2016-10-28 05:22] LABS: PLATELET ESTIMATE SMEAR NORMAL (NORMAL); PLATELET MORPHOLOGY NORMAL (NORMAL)
[2016-10-28] MEDS: INSULIN NovoLIN REGULAR SUPPLEMENTAL SCALE SQ SCH ×4 (07:00→21:54)
[2016-10-28] MEDS: SERTRALINE HCL 100 MG TAB PO SCH ×2 (07:46→21:38)
[2016-10-28] MEDS: ATENOLOL 25 MG TAB PO SCH (07:46)
[2016-10-28] MEDS: EZETIMIBE 10 MG TAB PO SCH (07:46)
[2016-10-28] MEDS: DOCUSATE SODIUM 100 MG/10 ML UDC G-TUBE SCH ×2 (07:47→21:39)
[2016-10-28] MEDS: FAMOTIDINE 20 MG/2 ML VIAL IV PUSH SCH (07:47)
[2016-10-28] MEDS: HEPARIN SODIUM - SQ 10,000 UNITS/ML VIAL SQ SCH ×2 (07:47→21:41)
[2016-10-28] MEDS: LISINOPRIL 10 MG TAB PO SCH (07:47)
[2016-10-28] MEDS: PRAVASTATIN SOD 40 MG TAB PO SCH (07:47)
[2016-10-28] MEDS: ARTIFICIAL TEARS OPTH SOLN 15 ML BTL EACH EYE SCH ×3 (07:48→17:10)
[2016-10-28] MEDS: NYSTATIN 100,000 U/GM PWD 15 GM BTL TOPICAL SCH ×2 (07:48→21:44)
[2016-10-28] MEDS: BUDESONIDE-FORMOTEROL 160/4.5 MCG INHALER INH SCH ×2 (07:48→21:43)
[2016-10-28] MEDS: SODIUM CHLORIDE 0.9% FLUSH 10 ML FLUSH SCH ×2 (07:48→21:33)
--- NOTE | 2016-10-28 09:35 | PD.TRANSFR ---
Transfer Summary Admission Date October 25, 2016 at 17:30 Transfer Date: October 28, 2016 Admitting Diagnosis Hypercapnic repsiratory failure Diagnoses: (1) COPD (chronic obstructive pulmonary disease) Diagnosis: Principal (2) Hypercapnic respiratory failure Diagnosis: Principal (3) Hyperlipidemia Diagnosis: Principal (4) DM (diabetes mellitus) Diagnosis: Principal (5) HTN (hypertension) Diagnosis: Principal (6) Lower extremity edema Diagnosis: Principal Significant Findings None Transfer Summary/Subjective This is a 76-year-old female history of oxygen dependent COPD was admitted with acute respiratory failure. She self extubated 10/27. She'll be sent to the floor today. Objective Vital Signs Date Time Temp Pulse Resp B/P Pulse Ox O2 Delivery O2 Flow Rate FiO2 10/28/16 08:53 97 Nasal Cannula 3.00 10/28/16 06:00 80 10/28/16 04:00 98.6 25 156/96 10/27/16 16:03 40 Intake and Output 10/27/16 10/27/16 10/28/16 08:00 16:00 00:00 Intake Total 100 ml 762 ml Output Total 1000 ml 1700 ml 1150 ml Balance -900 ml -938 ml -1150 ml Result Diagram: 10/28/16 0320 10/28/16 0320 Other Results Microbiology Date/Time Procedure Status Source Growth 10/25/16 14:10 Aerobic Blood Culture - Preliminary Resulted Blood Peripheral NO GROWTH IN 2 DAYS 10/25/16 14:10 Anaerobic Blood Culture - Preliminary Resulted Blood Peripheral NO GROWTH IN 2 DAYS Imaging Last Impressions Chest X-Ray 10/28/16 0600 Signed Impressions: Service Date/Time: October 03:40 - CONCLUSION: No discrete infiltrate or effusion. Karan Wallace Jr., MD Objective Remarks GENERAL: 76-year-old critically ill obese female currently on nasal cannula in no acute distress SKIN: Warm and dry. HEAD: Normocephalic. EYES: No scleral icterus. No injection or drainage. NECK: Supple, trachea midline. No JVD or lymphadenopathy. CARDIOVASCULAR: Regular rate and rhythm. S1, S2 no S4 without murmur without murmurs, gallops, or rubs. RESPIRATORY: Breath sounds equal bilaterally. No accessory muscle use. GASTROINTESTINAL: Abdomen soft, non-tender, nondistended. EXTREMITIES: 2+ pitting edema up to her knees/chronic venous stasis Neuro: Cranial nerves II through XII grossly intact. Strength is equal symmetric upper and lower extremity. Normal sensation A/P Assessment and Plan Neuro/Psych: Anxiety Depression Chronic benzodiazepine use Acetaminophen for fever Continue Zoloft 100 mg daily. On Valium 5 mill grams daily currently on hold Resumed Xanax 0.5 mg at night for anxiety Pulm: Acute on chronic hypoxemic respiratory failure COPD oxygen dependent Bilateral pleural effusions Nasal cannula to maintain saturations greater than equal to 92% Incentive spirometry while awake Bronchodilators every 4 hours and as needed Solumederol 40mg IV Q8 F/u cxr On advair 250/50 bid at home CV: Hypertension Dyslipidemia Monitor HR and BP keep MAP>65mmhg On Lisinopril 10mg daily, Atenolol 25mg daily, Zetia 10 mg daily, Pravachol. 40 mg daily for dyslipidemia continue Hold HCTZ Resume Lasix to 25 mill grams by mouth daily /FEN: Monitor renal function, I/O's, electrolytes replacement electrolyte protocol as clinically indicated GI: ADA diet resume. On Pepcid 20mg IV Q12 will be discontinued Colace twice a day for bowel regimen ID: Continue with empiric abx ( Levaquin) monitor for signs of infections ( Fever, WBC) Heme: Microcytic anemia Monitor CBC Endo: SSI with accuchecks for glycemic control GI prophylaxis-not indicated DVT prophylaxis- Heparin SQ Level 2 Patient is stable from a critical care medicine standpoint. We'll assign care to hospitals in a.m. 10/29. Trae Gaston MD October 28, 2016 09:35
[2016-10-28 21:08] LABS: MEAN CORPUSCULAR HGB CONC 28.1 % (32.0-36.0)
[2016-10-28] MEDS: LEVOFLOXACIN 500 MG PREMIX INJ 100 ML IV SCH (21:32)
[2016-10-28] MEDS: ALPRAZolam 0.5 MG TAB PO SCH (21:38)
[2016-10-28] MEDS: BUDESONIDE-FORMOTEROL 80/4.5 MCG INHALER INH SCH (21:42)
[2016-10-29] VITALS (9 sets, daily range): BP systolic 128–155; BP diastolic 61–71; PULSE 56–139; RESP 16–18; TEMP 97.8–98.8; O2SAT 93–98
[2016-10-29] MEDS: RESP: ALBUTEROL 2.5 MG/IPRATROPIUM 0.5 MG NEB (SCH) NEB ×6 (04:00→19:45)
[2016-10-29] MEDS: CHLORHEXIDINE GLUCONATE 2 % 1 PACK (2 CLOTHS) TOP SCH (04:00)
[2016-10-29] MEDS: INSULIN NovoLIN REGULAR SUPPLEMENTAL SCALE SQ SCH ×4 (05:25→21:00)
[2016-10-29] MEDS: methylPREDNISolone SOD SUCC 40 MG/1 ML VIAL IV PUSH SCH ×3 (05:28→22:00)
--- NOTE | 2016-10-29 07:35 | RADRPT ---
EXAM DATE/TIME: 10/29/2016 06:58 [facility] COMPARISON: CHEST SINGLE AP, October 28, 2016, 3:40. INDICATIONS : COPD MEDICAL HISTORY : Cardiomegaly SURGICAL HISTORY : Fusion, cervical. ENCOUNTER: Subsequent ACUITY: 3 days PAIN SCORE: Non-responsive. LOCATION: Bilateral chest FINDINGS: The heart remains enlarged. There is persistent elevation of the left hemidiaphragm. The pulmonary va scular pattern is normal. The lungs are clear. Degenerative changes are noted throughout the thoracic spine. Hardware is noted within the lower cervical spine. CONCLUSION: Stable cardiomegaly. Chronic elevation of the left hemidiaphragm. No acute focal infi ltrate or pulmonary vascular congestion. Degenerative changes of the thoracic spine. Nilesh Salas MD on October 29, 2016 at 7:32 Board Certified Radiologist. This report was verified electronically.
[2016-10-29 08:22] LABS: AUTOMATED NEUTROPHIL # 5.7 TH/MM3 (1.8-7.7); BASOPHIL % 0.1 % (0.0-2.0); EOSINOPHIL # 0.1 TH/MM3 (0-0.4); EOSINOPHIL % 1.3 % (0.0-4.0); HEMATOCRIT 31.8 % (35.0-46.0); LYMPH % 7.4 % (9.0-44.0); LYMPHOCYTE # 0.5 TH/MM3 (1.0-4.8); MEAN CELL VOLUME 76.8 FL (80.0-100.0); MEAN CORPUSCULAR HEMOGLOBIN 21.6 PG (27.0-34.0); MONO % 6.4 % (0.0-8.0); NEUT % 84.8 % (16.0-70.0); PLATELET COUNT 222 TH/MM3 (150-450); RED BLOOD COUNT 4.15 MIL/MM3 (4.00-5.30); WHITE BLOOD COUNT 6.7 TH/MM3 (4.0-11.0)
[2016-10-29 08:27] LABS: HEMO FLAGS AUTO DIFF
[2016-10-29] MEDS: ATENOLOL 25 MG TAB PO SCH (08:41)
[2016-10-29] MEDS: EZETIMIBE 10 MG TAB PO SCH (08:41)
[2016-10-29] MEDS: FUROSEMIDE 20 MG TAB PO SCH (08:41)
[2016-10-29] MEDS: BUDESONIDE-FORMOTEROL 160/4.5 MCG INHALER INH SCH ×2 (08:41→21:00)
[2016-10-29] MEDS: SERTRALINE HCL 100 MG TAB PO SCH ×2 (08:42→21:00)
[2016-10-29] MEDS: DOCUSATE SODIUM 100 MG/10 ML UDC G-TUBE SCH ×2 (08:42→21:00)
[2016-10-29] MEDS: PRAVASTATIN SOD 40 MG TAB PO SCH (08:42)
[2016-10-29] MEDS: LISINOPRIL 10 MG TAB PO SCH (08:42)
[2016-10-29] MEDS: BUDESONIDE-FORMOTEROL 80/4.5 MCG INHALER INH SCH ×2 (08:42→21:00)
[2016-10-29] MEDS: NYSTATIN 100,000 U/GM PWD 15 GM BTL TOPICAL SCH ×2 (08:43→21:00)
[2016-10-29] MEDS: HEPARIN SODIUM - SQ 10,000 UNITS/ML VIAL SQ SCH ×2 (08:43→21:00)
[2016-10-29] MEDS: ARTIFICIAL TEARS OPTH SOLN 15 ML BTL EACH EYE SCH ×3 (08:46→17:00)
[2016-10-29 08:55] LABS: ALKALINE PHOSPHATASE 106 U/L (45-117); ALT (GPT) 15 U/L (10-53); ANION GAP 4 MEQ/L (5-15); AST (GOT) 11 U/L (15-37); BICARBONATE 33.4 MEQ/L (21.0-32.0); BLOOD UREA NITROGEN 29 MG/DL (7-18); CHLORIDE 104 MEQ/L (98-107); GLOMERULAR FILTRATION RATE 66 ML/MIN (>89); MAGNESIUM 2.6 MG/DL (1.5-2.5); POTASSIUM 4.2 MEQ/L (3.5-5.1); SODIUM (NA) 141 MEQ/L (136-145); TOTAL BILIRUBIN ADULT 0.2 MG/DL (0.2-1.0)
[2016-10-29] MEDS: SODIUM CHLORIDE 0.9% FLUSH 10 ML FLUSH SCH ×2 (09:18→21:00)
[2016-10-29 09:28] LABS: OVALOCYTES 1+ (NORMAL); SCAN/DIFF AUTO DIFF CONFIRMED
[2016-10-29] MEDS: LEVOFLOXACIN 500 MG PREMIX INJ 100 ML IV SCH (20:00)
[2016-10-29] MEDS: ALPRAZolam 0.5 MG TAB PO SCH (21:00)
--- NOTE | 2016-10-29 23:55 | HHI.PR ---
Subjective Remarks patient seen today around noon. She says she is feeling all right. Would like to out of bed. discussed with nursing. Objective Vital Signs Date Time Temp Pulse Resp B/P Pulse Ox O2 Delivery O2 Flow Rate FiO2 10/29/16 20:00 97.8 73 16 155/68 95 10/29/16 19:48 97 Nasal Cannula 3.00 10/29/16 11:59 98.0 56 18 149/66 93 10/29/16 08:09 60 10/29/16 08:09 96 Nasal Cannula 3.00 10/29/16 08:00 98.0 63 18 128/61 95 10/29/16 04:00 98.5 76 16 135/71 97 10/29/16 00:00 98.8 68 18 147/65 98 I/O 10/28/16 10/28/16 10/28/16 10/29/16 10/29/16 10/29/16 06:59 14:59 22:59 06:59 14:59 22:59 Intake Total 156 ml 120 ml 0 ml 480 ml 480 ml Output Total 1400 ml 100 ml Balance -1244 ml 20 ml 0 ml 480 ml 480 ml Intake Oral 120 ml 0 ml 480 ml 480 ml IV Total 156 ml Output Urine Total 1400 ml 100 ml # Voids 2 2 1 # Bowel Movements 0 0 0 Result Diagram: 10/29/1609 10/29/16 0709 Objective Remarks GENERAL: patient sitting up in bed. Moderate shortness of breath. SKIN: Warm and dry. HEAD: Normocephalic. EYES: No scleral icterus. No injection or drainage. NECK: Supple, trachea midline. No JVD. CARDIOVASCULAR: Regular rate and rhythm without murmurs, gallops, or rubs. RESPIRATORY: Breath sounds equal bilaterally. No accessory muscle use. GASTROINTESTINAL: Abdomen soft, non-tender, nondistended. MUSCULOSKELETAL: No cyanosis, or edema. BACK: Nontender without obvious deformity. No CVA tenderness. A/P Assessment and Plan //Acute on chronic hypoxemic respiratory failure //COPD oxygen dependent //Bilateral pleural effusions Nasal cannula to maintain saturations greater than equal to 92% cont Incentive spirometry while awake Bronchodilators every 4 hours and as needed Solumederol 40mg IV Q8 - plan taper steroids F/u cxr - NAF On advair 250/50 bid at home -cont levaquiin total 7 days. -10/29 - Echo ordered to r/u CHF. //Anxiety //Depression //Chronic benzodiazepine use Acetaminophen for fever Continue Zoloft 100 mg daily. hold valium cont Xanax 0.5 mg at night for anxiety //Hypertension //Dyslipidemia Monitor HR and BP keep MAP>65mmhg On Lisinopril 10mg daily, Atenolol 25mg daily, Zetia 10 mg daily, Pravachol. 40 mg daily for dyslipidemia continue cont to Hold HCTZ cont Lasix 25mg by mouth daily //DM -glucose controlled. hold metformin for now. cont iss while on steroids //GI prophylaxis-not indicated //DVT prophylaxis- Heparin SQ Discharge Planning possibly CIR Todd Lopez MD October 29, 2016 23:55 ID: Continue with empiric abx ( Levaquin) monitor for signs of infections ( Fever, WBC) Heme: Microcytic anemia Monitor CBC Endo: SSI with accuchecks for glycemic control GI prophylaxis-not indicated DVT prophylaxis- Heparin SQ Todd Lopez MD October 29, 2016 23:55
[2016-10-30] VITALS: BP 117/66; PULSE 66; RESP 18; TEMP 97.9; O2SAT 96
[2016-10-30 04:00] VITALS: BP 145/66; PULSE 67; RESP 18; TEMP 97.7; O2SAT 94
[2016-10-30] MEDS: CHLORHEXIDINE GLUCONATE 2 % 1 PACK (2 CLOTHS) TOP SCH (04:00)
[2016-10-30] MEDS: INSULIN NovoLIN REGULAR SUPPLEMENTAL SCALE SQ SCH ×4 (06:44→21:27)
[2016-10-30] MEDS: methylPREDNISolone SOD SUCC 40 MG/1 ML VIAL IV PUSH SCH ×3 (06:44→21:33)
[2016-10-30 08:00] VITALS: BP 170/72; PULSE 66; PULSE 85; RESP 20; TEMP 97.6; O2SAT 97
[2016-10-30] MEDS: HEPARIN SODIUM - SQ 10,000 UNITS/ML VIAL SQ SCH ×2 (09:00→21:28)
[2016-10-30] MEDS: BUDESONIDE-FORMOTEROL 80/4.5 MCG INHALER INH SCH ×2 (09:00→21:00)
[2016-10-30] MEDS: BUDESONIDE-FORMOTEROL 160/4.5 MCG INHALER INH SCH ×2 (09:00→21:32)
[2016-10-30] MEDS: ARTIFICIAL TEARS OPTH SOLN 15 ML BTL EACH EYE SCH ×3 (09:00→16:31)
[2016-10-30] MEDS: NYSTATIN 100,000 U/GM PWD 15 GM BTL TOPICAL SCH ×2 (09:00→21:33)
[2016-10-30] MEDS: DOCUSATE SODIUM 100 MG/10 ML UDC G-TUBE SCH ×2 (09:01→21:00)
[2016-10-30] MEDS: FUROSEMIDE 20 MG TAB PO SCH (09:01)
[2016-10-30] MEDS: LISINOPRIL 10 MG TAB PO SCH (09:01)
[2016-10-30] MEDS: PRAVASTATIN SOD 40 MG TAB PO SCH (09:01)
[2016-10-30] MEDS: SERTRALINE HCL 100 MG TAB PO SCH ×2 (09:01→21:28)
[2016-10-30] MEDS: ATENOLOL 25 MG TAB PO SCH (09:01)
[2016-10-30] MEDS: EZETIMIBE 10 MG TAB PO SCH (09:01)
[2016-10-30] MEDS: SODIUM CHLORIDE 0.9% FLUSH 10 ML FLUSH SCH ×2 (09:10→21:29)
[2016-10-30] MEDS ORDERED: NOVORP2 SQ (11:04)
[2016-10-30] MEDS ORDERED: PRED10PA2 PO (11:04)
[2016-10-30] MEDS ORDERED: LEVO750T33 PO (11:04)
--- NOTE | 2016-10-30 11:16 | HHI.DS ---
Discharge Summary Admission Date October 25, 2016 at 17:30 Discharge Date: October 30, 2016 Admitting Diagnosis Hypercapnic repsiratory failure (1) COPD (chronic obstructive pulmonary disease) ICD Code: J44.9 Diagnosis: Principal (2) Hypercapnic respiratory failure ICD Code: J96.92 Diagnosis: Principal (3) Hyperlipidemia ICD Code: E78.5 Diagnosis: Principal (4) DM (diabetes mellitus) ICD Code: E11.9 Diagnosis: Principal (5) HTN (hypertension) ICD Code: I10 Diagnosis: Principal (6) Lower extremity edema ICD Code: R60.0 Diagnosis: Principal Procedures none Brief History - From Admission 76-year-old female with past medical history of COPD on home O2 4 L nasal cannula, history of CHF with chronic lower extremity edema hypertension diabetes presented to emergency room with complaints of hypoxemia and shortness of breath. In the emergency room she initially responded well to BiPAP treatment however later her altered mental status worsened and she required intubation for an airway protection. CBC/BMP: 10/29/16 0709 10/29/16 0709 Significant Findings Laboratory Tests Test 10/28/16 10/29/16 03:20 07:09 Red Blood Count 3.76 MIL/MM3 (4.00-5.30) Hemoglobin 8.2 GM/DL 8.9 GM/DL (11.6-15.3) (11.6-15.3) Hematocrit 28.3 % 31.8 % (35.0-46.0) (35.0-46.0) Mean Corpuscular Volume 75.3 FL 76.8 FL (80.0-100.0) (80.0-100.0) Mean Corpuscular Hemoglobin 21.7 PG 21.6 PG (27.0-34.0) (27.0-34.0) Mean Corpuscular Hemoglobin 28.9 % 28.1 % Concent (32.0-36.0) (32.0-36.0) Red Cell Distribution Width 18.7 % 19.0 % (11.6-17.2) (11.6-17.2) Neutrophils (%) (Auto) 89.3 % 84.8 % (16.0-70.0) (16.0-70.0) Lymphocytes (%) (Auto) 4.6 % 7.4 % (9.0-44.0) (9.0-44.0) Neutrophils # (Auto) 7.8 TH/MM3 (1.8-7.7) Lymphocytes # (Auto) 0.4 TH/MM3 0.5 TH/MM3 (1.0-4.8) (1.0-4.8) Carbon Dioxide Level 32.5 MEQ/L 33.4 MEQ/L (21.0-32.0) (21.0-32.0) Blood Urea Nitrogen 25 MG/DL (7-18) 29 MG/DL (7-18) Estimat Glomerular Filtration 60 ML/MIN (>89) 66 ML/MIN (>89) Rate Random Glucose 130 MG/DL (74-106) Calcium Level 8.2 MG/DL 8.2 MG/DL (8.5-10.1) (8.5-10.1) Aspartate Amino Transf 10 U/L (15-37) 11 U/L (15-37) (AST/SGOT) Albumin 2.7 GM/DL 2.9 GM/DL (3.4-5.0) (3.4-5.0) Ovalocytes 1+ (NORMAL) Anion Gap 4 MEQ/L (5-15) Magnesium Level 2.6 MG/DL (1.5-2.5) Imaging Last Impressions Chest X-Ray 10/29/16 0600 Signed Impressions: Service Date/Time: Saturday, October 29, 2016 06:58 - CONCLUSION: Stable cardiomegaly. Chronic elevation of the left hemidiaphragm. No acute focal infiltrate or pulmonary vascular congestion. Degenerative changes of the thoracic spine. Nilesh Salas MD Transfer Summary This is a 76-year-old female history of oxygen dependent COPD was admitted with acute respiratory failure. She self extubated 10/27. She'll be sent to the floor today. Pt update on day of discharge patient says she is feeling well. Ready to go to rehabilitation. Hospital Course Patient was admitted to the ICU for respiratory failure, fluid overload, and intubated, however subsequently extubated. Managed with steroids, antibiotics, duonebs. Steroids will need to be tapered. Insulin was adjusted on steroids. Diazepam was discontinued to avoid oversedation. Patient developed constipation , which resolved with laxatives. Due to what appears to be fluid overloaded during admission, BMP in 300s, interstitial edema, echocardiogram was ordered which shows basilar akinesis, consistent with stress-induced cardiomyopathy. Patient was euvolemic at time of discharge, however will need close attention to blood pressure, and will need to be followed up by cardiology. For problem-based summary for most recent progress note, please see below. //Acute on chronic hypoxemic respiratory failure //COPD oxygen dependent //Bilateral pleural effusions Nasal cannula to maintain saturations greater than equal to 92% cont Incentive spirometry while awake Bronchodilators every 4 hours and as needed Solumederol 40mg IV Q8 - plan taper steroids F/u cxr - NAF On advair 250/50 bid at home -cont levaquiin total 7 days. -10/29 - Echo ordered to r/u CHF. //Anxiety //Depression //Chronic benzodiazepine use Acetaminophen for fever Continue Zoloft 100 mg daily. hold valium cont Xanax 0.5 mg at night for anxiety //Hypertension //Dyslipidemia Monitor HR and BP keep MAP>65mmhg On Lisinopril 10mg daily, Atenolol 25mg daily, Zetia 10 mg daily, Pravachol. 40 mg daily for dyslipidemia continue cont to Hold HCTZ cont Lasix 25mg by mouth daily //DM -glucose controlled. hold metformin for now. cont iss while on steroids //GI prophylaxis-not indicated //DVT prophylaxis- Heparin SQ Pt Condition on Discharge: Stable Discharge Disposition: Rehab Inpatient Discharge Time: > 30 minutes Discharge Instructions DIET: Follow Instructions for: Diabetic Diet Speech Therapy-Diet Recommends: Mechanical Soft Fluid Restrictions: 2L Activities you can perform: Regular-No Restrictions Follow up Referrals: Pulmonology - 1 Week New Medications: Levofloxacin (Levofloxacin) 750 Mg Tab 750 MG PO DAILY Infection #3 Ref 0 TAB Prednisone (48) 10 mg tab Dose Pack (Prednisone (48) 10 mg tab Dose Pack) 10 Mg Dspk 10 MG PO DIRECTED Inflammation #1 Ref 0 DSPK Insulin Human Regular Inj (Novolin R Inj) 1,000 Unit/10 Ml Vial 1 INJECTION SQ ACHS steroid hyperglycemia Days 30 INJECTION Continued Medications: Albuterol 18 GM Inh (Ventolin Hfa 18 GM Inh) 90 Mcg/Act Aer 2 PUFF INH DAILY #1 Ref 0 INHALER Alprazolam (Alprazolam) 0.5 Mg Tab 0.5 MG PO HS ANXIETY Ref 0 TAB Atenolol (Atenolol) 25 Mg Tab 25 MG PO DAILY Blood Pressure Management #30 TAB Ezetimibe (Zetia) 10 Mg Tab 10 MG PO DAILY #30 Ref 0 TAB Fluticasone-Salmeterol Inh (Advair Diskus Inh) 250-50 Mcg/Blist Aer 1 PUFF INH BID Rinse mouth after use. #1 Ref 0 INHALER Furosemide (Lasix) 20 Mg Tab 20 MG PO DAILY #30 Ref 0 TAB Hydrocodone-Acetaminophen (Hydrocodone-Acetaminophen) 10-325 mg Tab 1 TAB PO BID Ref 0 TAB Lisinopril (Lisinopril) 10 Mg Tab 10 MG PO DAILY #30 Ref 0 TAB Lovastatin (Lovastatin) 40 Mg Tab 80 MG PO DAILY Cholesterol Management #60 Ref 0 TAB Omeprazole (Omeprazole) 20 Mg Tab 20 MG PO DAILY #30 Ref 0 TAB Sertraline (Zoloft) 100 Mg Tab 100 MG PO BID #30 Ref 0 TAB Discontinued Medications: Diazepam (Diazepam) 5 Mg Tab 5 MG PO DAILY Ref 0 TAB Hydrochlorothiazide (Hydrochlorothiazide) 25 Mg Tab 25 MG PO DAILY #30 Ref 0 TAB Metformin (Metformin) 500 Mg Tab 500 MG PO DAILYPC EVENING MEAL With a meal Blood Sugar Management #30 Ref 0 TAB Metformin (Metformin) 1,000 Mg Tab 1000 MG PO DAILYPC BREAKFAST With a meal Blood Sugar Management #30 Ref 0 TAB Todd Lopez MD October 30, 2016 11:16
[2016-10-30 12:00] VITALS: BP 163/73; PULSE 63; RESP 20; TEMP 97.9; O2SAT 95
[2016-10-30] MEDS ORDERED: DOCUSATE SODIUM 50 MG/SENNA 8.6 MG TAB PO ONE (13:15)
[2016-10-30] MEDS ORDERED: MAGNESIUM HYDROXIDE SUSP 30 ML CUP PO ONE (13:15)
[2016-10-30] MEDS ORDERED: SOD PHOSPHATE/SOD BIPHOSPHATE (ADULT) ENEMA 133ML RECTAL ONE (13:15)
[2016-10-30 16:00] VITALS: BP 171/75; PULSE 61; RESP 20; TEMP 98.1; O2SAT 91
[2016-10-30] MEDS ORDERED: BISACODYL 10 MG SUPP RECTAL ONE (18:15)
[2016-10-30 20:00] VITALS: BP 155/67; PULSE 62; PULSE 63; RESP 18; TEMP 97.4; O2SAT 96
[2016-10-30] MEDS: ALPRAZolam 0.5 MG TAB PO SCH (21:28)
[2016-10-30] MEDS: LEVOFLOXACIN 500 MG PREMIX INJ 100 ML IV SCH (21:30)
[2016-10-31] VITALS: BP 159/73; PULSE 62; RESP 20; TEMP 97.5; O2SAT 94
[2016-10-31 02:07] LABS: MEAN CORPUSCULAR HGB CONC 29.3 % (32.0-36.0)
[2016-10-31] MEDS: CHLORHEXIDINE GLUCONATE 2 % 1 PACK (2 CLOTHS) TOP SCH (03:58)
[2016-10-31 04:00] VITALS: BP 157/75; PULSE 64; RESP 20; TEMP 97.4; O2SAT 96
[2016-10-31] MEDS: INSULIN NovoLIN REGULAR SUPPLEMENTAL SCALE SQ SCH ×2 (06:00→11:00)
[2016-10-31] MEDS: methylPREDNISolone SOD SUCC 40 MG/1 ML VIAL IV PUSH SCH (06:16)
[2016-10-31 08:00] VITALS: BP 139/77; PULSE 63; PULSE 64; RESP 20; TEMP 97.8; O2SAT 97
[2016-10-31] MEDS: LISINOPRIL 10 MG TAB PO SCH (08:14)
[2016-10-31] MEDS: DOCUSATE SODIUM 100 MG/10 ML UDC G-TUBE SCH (08:14)
[2016-10-31] MEDS: FUROSEMIDE 20 MG TAB PO SCH (08:14)
[2016-10-31] MEDS: ATENOLOL 25 MG TAB PO SCH (08:14)
[2016-10-31] MEDS: SERTRALINE HCL 100 MG TAB PO SCH (08:14)
[2016-10-31] MEDS: EZETIMIBE 10 MG TAB PO SCH (08:14)
[2016-10-31] MEDS: NYSTATIN 100,000 U/GM PWD 15 GM BTL TOPICAL SCH (08:15)
[2016-10-31] MEDS: PRAVASTATIN SOD 40 MG TAB PO SCH (08:15)
[2016-10-31] MEDS: HEPARIN SODIUM - SQ 10,000 UNITS/ML VIAL SQ SCH (08:15)
[2016-10-31] MEDS: SODIUM CHLORIDE 0.9% FLUSH 10 ML FLUSH SCH (08:16)
[2016-10-31] MEDS: BUDESONIDE-FORMOTEROL 160/4.5 MCG INHALER INH SCH (08:16)
[2016-10-31] MEDS: ARTIFICIAL TEARS OPTH SOLN 15 ML BTL EACH EYE SCH (08:16)
[2016-10-31] MEDS: BUDESONIDE-FORMOTEROL 80/4.5 MCG INHALER INH SCH (08:17)
[2016-10-31 09:13] LABS: BASOPHIL % 0.1 % (0.0-2.0); EOSINOPHIL % 0.5 % (0.0-4.0); HEMATOCRIT 30.9 % (35.0-46.0); LYMPH % 8.4 % (9.0-44.0); LYMPHOCYTE # 0.6 TH/MM3 (1.0-4.8); MEAN CELL VOLUME 75.3 FL (80.0-100.0); MEAN CORPUSCULAR HEMOGLOBIN 22.1 PG (27.0-34.0); MONO % 6.8 % (0.0-8.0); NEUT % 84.2 % (16.0-70.0); PLATELET COUNT 222 TH/MM3 (150-450); RED BLOOD COUNT 4.11 MIL/MM3 (4.00-5.30); RED CELL DISTRIBUTION WIDTH 18.5 % (11.6-17.2); WHITE BLOOD COUNT 7.2 TH/MM3 (4.0-11.0)
[2016-10-31 09:14] LABS: HEMO FLAGS AUTO DIFF
[2016-10-31 09:39] LABS: BICARBONATE 34.4 MEQ/L (21.0-32.0); POTASSIUM 4.5 MEQ/L (3.5-5.1)
[2016-10-31 09:55] LABS: ACANTHOCYTES OCC (NORMAL); OVALOCYTES 1+ (NORMAL); SCAN/DIFF AUTO DIFF CONFIRMED
[2016-10-31] MEDS ORDERED: DOCU100C PO (13:39)
--- NOTE | 2016-11-05 08:03 | EC ---
Study Study Date:10/29/2016 STUDY CONCLUSIONS SUMMARY - Left ventricle: The cavity size was normal. Wall thickness was normal. Systolic function was normal. The estimated ejection fraction was in the range of 50% to 55%. Akinesis and scarring of the basal inferior myocardium. - Mitral valve: Mildly calcified annulus. - Left atrium: The atrium was mildly dilated. If LV function is below 40, please consider prescribing an ACEI or ARB or document rationale for non-use. PROCEDURE DATA STUDY STATUS: Elective. Procedure: Transthoracic echocardiography. Image quality was poor. Scanning was performed from the parasternal, apical, and subcostal acoustic windows. Study completion: The patient tolerated the procedure well. Transthoracic echocardiography. M-mode, complete 2D, complete spectral Doppler, and color Doppler. Patient status: Inpatient. CARDIAC ANATOMY LEFT VENTRICLE: The cavity size was normal. Wall thickness was normal. Systolic function was normal. The estimated ejection fraction was in the range of 50% to 55%. Regional wall motion abnormalities: Akinesis and scarring of the basal inferior myocardium. AORTIC VALVE: Trileaflet; normal thickness leaflets. Doppler: Transvalvular velocity was within the normal range. There was no stenosis. No regurgitation. AORTA: Aortic root: The aortic root was normal in size. MITRAL VALVE: Mildly calcified annulus. Doppler: Transvalvular velocity was within the normal range. There was no evidence for stenosis. No regurgitation. Peak gradient: 2mm Hg (D). LEFT ATRIUM: The atrium was mildly dilated. RIGHT VENTRICLE: The cavity size was normal. Wall thickness was normal. PULMONIC VALVE: Doppler: Transvalvular velocity was within the normal range. There was no evidence for stenosis. No regurgitation. TRICUSPID VALVE: Structurally normal valve. Doppler: Transvalvular velocity was within the normal range. No regurgitation. PULMONARY ARTERY: The main pulmonary artery was normal-sized. Systolic pressure was within the normal range. RIGHT ATRIUM: The atrium was normal in size. PERICARDIUM: There was no pericardial effusion. SYSTEMIC VEINS: Inferior vena cava: The vessel was normal in size. BASIC MEASUREMENTS ADULT NORMAL Left ventricle LV internal dimension, ED, chordal level, 47.7 mm 43-52 PLAX LV internal dimension, ES, chordal level, 37.7 mm 23-38 PLAX Fractional shortening, chordal level, PLAX *21 % >29 LV posterior wall thickness, ED 10 mm IVS/LVPW ratio, ED 1.03 <1.3 Ventricular septum Septal thickness, ED 10.3 mm Aortic valve Leaflet separation 19 mm 15-26 Right ventricle RV internal dimension, ED, PLAX 23.4 mm 19-38 BASIC MEASUREMENTS ADULT NORMAL Aortic valve Leaflet separation 19 mm 15-26 Aorta Root diameter, ED 34 mm 20-37 Left atrium Anterior-posterior dimension, ES *41 mm 19-40 LA/aortic root ratio 1.21 DOPPLER MEASUREMENTS ADULT NORMAL Mitral valve Peak E-wave velocity 78 cm/s Peak A-wave velocity 107 cm/s Peak gradient, D 2 mm Hg Peak E/A ratio 0.7 LEGEND: Mean values are shown as u=mean value. Asterisk (*) hallman values outside specified normal range. Prepared and signed by Erik Linton [id number]
[2016-11-10] MEDS ORDERED: WHEEMIS3 (12:03)
[2016-11-16] MEDS ORDERED: ZOLO100T PO (08:29)
[2016-11-16] MEDS ORDERED: OMEP20TA PO (08:29)
[2016-11-16] MEDS ORDERED: SYMB160A INH (08:29)
[2016-11-16] MEDS ORDERED: DOCU100C PO (08:29)
[2016-11-16] MEDS ORDERED: NORC5TAB PO (08:29)
[2016-11-16] MEDS ORDERED: ALPR0.5T3 PO (08:29)
[2016-11-16] MEDS ORDERED: VENTAER INH (08:29)
[2016-11-16] MEDS ORDERED: ZETI10TA5 PO (08:29)
[2016-11-16] MEDS ORDERED: FERR325T20 PO (08:29)
[2016-11-16] MEDS ORDERED: NYST10007 TOPICAL (08:30)
[2016-11-16] MEDS ORDERED: LISI-515 PO (08:30)
[2016-11-16] MEDS ORDERED: PRED5TAB PO (08:30)
[2016-11-16] MEDS ORDERED: CALC500T30 PO (08:30)
[2016-11-16] MEDS ORDERED: FURO20TA PO (08:30)
[2016-11-16] MEDS ORDERED: XARE15TA PO (08:30)
[2016-11-16] MEDS ORDERED: PRAV80TA PO (08:34)
[2016-11-16] MEDS ORDERED: cmp (12:21)
== END 2016-10-31 12:03 | DRG 208 ==
LOC: NEPC 14:16 → NEDA 17:30 → N03B 22:18 → HIMW 10-26 22:45 → N04A 10-28 12:57 → N04B 10-29 08:20
PROVIDERS: ADMIT Internal Medicine; ATTEND Internal Medicine
PROC: 5A1935Z Respiratory Ventilation, Less than 24 Consecutive Hours (ICD-10-PCS; principal; 2016-10-25)
PROC: 0T9B70Z Drainage of Bladder with Drainage Device, Via Natural or Artificial Opening (ICD-10-PCS; 2016-10-25)
PROC: 0BH17EZ Insertion of Endotracheal Airway into Trachea, Via Natural or Artificial Opening (ICD-10-PCS; 2016-10-25)
PROC: 5A09357 Assistance with Respiratory Ventilation, Less than 24 Consecutive Hours, Continuous Positive Airway Pressure (ICD-10-PCS; 2016-10-25)
DX: J96.21 Acute and chronic respiratory failure with hypoxia (principal); J44.1 Chronic obstructive pulmonary disease with (acute) exacerbation; E87.4 Mixed disorder of acid-base balance; Z99.81 Dependence on supplemental oxygen; I50.9 Heart failure, unspecified; I10 Essential (primary) hypertension; J96.22 Acute and chronic respiratory failure with hypercapnia; F41.9 Anxiety disorder, unspecified; F32.9 Major depressive disorder, single episode, unspecified; K21.9 Gastro-esophageal reflux disease without esophagitis; K44.9 Diaphragmatic hernia without obstruction or gangrene; E11.9 Type 2 diabetes mellitus without complications; Z79.84 Long term (current) use of oral hypoglycemic drugs; E78.5 Hyperlipidemia, unspecified; Z79.899 Other long term (current) drug therapy; D50.9 Iron deficiency anemia, unspecified
CPT/HCPCS: 31500; 36600; 51702; 71010; 80048; 80053; 82140; 82550; 82805; 82948; 83605; 83690; 83735; 83880; 84100; 84484; 85025; 85610; 85730; 87040; 87641; 93005; 93306; 94002; 94003; 94150; 94640; 94664; 96374; 96375; 99292; J0330; J0360; J1120; J1644; J1940; J1956; J2250; J2270; J2405; J2920; J2930; J7030; J7050; J7512

== ENCOUNTER 2017-02-09 14:14 | Emergency (ER) | payer MEDICARE ==
[~2017-02-09] VITALS: Ht 160 cm; Wt 86.7 kg
[~2017-02-09 14:14] MED LIST changes: -ADVA250A INH; +ALPR0.5T3 PO; -ATEN25TA PO; +CALC500T30 PO; -DIAZ5TAB PO; +DOCU100C PO; +FERR325T20 PO; -FURO1TAB62 PO; +FURO20TA PO; -HYDR-3583 PO; -HYDR25TA5 PO; +LISI-515 PO; -LOVA20TA PO; +NORC5TAB PO; +NYST10007 TOPICAL; +PRAV80TA PO; +PRED5TAB PO; +SYMB160A INH; +XARE15TA PO
[2017-02-09 14:28] VITALS: BP 121/60; PULSE 90; RESP 18; TEMP 98.4; O2SAT 90
[2017-02-09 15:24] VITALS: BP 132/67; PULSE 72; RESP 16; O2SAT 92
--- NOTE | 2017-02-09 16:13 | PD ---
HPI Chief Complaint: Edema Time Seen by Provider: 14:35 Travel History International Travel<30 days: No Contact w/Intl Traveler<30days: No Traveled to known affect area: No History of Present Illness HPI This 77-year-old presents emergency department referred in by her material liaison for right leg swelling. She is intermittent trouble with her leg swelling. She treats it the following subdural leg off the bed. She otherwise has been feeling generally well. States his appetite. Couple times a month. This time is in the past couple days. She uses a pneumatic compression device at home to help with the swelling. It's more she is up on her feet. She otherwise has been feeling generally well and healthy. Denies any chest pain. She has states he occasionally some shortness of breath or seizures or COPD. Is no change in his from baseline. History Past Medical History Narrative Medical COPD on home oxygen Diabetes Hypertension on hyperlipidemia Menopausal: Yes Social History Alcohol Use: No Tobacco Use: No Allergies-Medications (Allergen,Severity, Reaction): Coded Allergies: scallops (Unverified Allergy, Mild, CONFUSION, 02/09/17) Reported Meds & Prescriptions Reported Meds & Active Scripts Active Alprazolam 0.5 Mg Tab 0.5 Mg PO HS Pravachol (Pravastatin) 80 Mg Tab 80 Mg PO DAILY Nystop Topical (Nystatin Topical) 100,000 Unit/Gm Powd 1 Applic TOPICAL Q12HR 14 Days Furosemide 20 Mg Tab 20 Mg PO DAILY@1200 Lisinopril 20 Mg Tab 20 Mg PO DAILY Calcium Oyster Shell (Oyster Shell) 500 Mg Tab 500 Mg PO DAILY Xarelto (Rivaroxaban) 15 Mg Tab 15 Mg PO BID Symbicort Inh (Budesonide/Formoterol Fumarate) 160-4.5 Mcg/Act Aero 2 Puff INH BID Zoloft (Sertraline HCl) 100 Mg Tab 100 Mg PO BID Friendly (Hydrocodone-Acetaminophen) 5-325 mg Tab 1 Tab PO Q12HR PRN Docusate Sodium 100 Mg Cap 100 Mg PO BID Omeprazole 20 Mg Tab 20 Mg PO DAILY Zetia (Ezetimibe) 10 Mg Tab 10 Mg PO DAILY Review of Systems Except as stated in HPI: all other systems reviewed are Neg Physical Exam Narrative GENERAL: Well-appearing 77-year-old woman, no acute distress. SKIN: Focused skin assessment warm/dry. HEAD: Atraumatic. Normocephalic. EYES: Pupils equal and round. No scleral icterus. No injection or drainage. ENT: No nasal bleeding or discharge. Mucous membranes pink and moist. NECK: Trachea midline. No JVD. CARDIOVASCULAR: Regular rate and rhythm. No murmur appreciated. RESPIRATORY: No accessory muscle use. Clear to auscultation. Breath sounds equal bilaterally. GASTROINTESTINAL: Abdomen soft, non-tender, nondistended. Hepatic and splenic margins not palpable. MUSCULOSKELETAL: No obvious deformities. Some swelling and erythema in the right leg. Minimal erythema. Minimal warmth. No pain or tenderness. No calf tenderness. Good pulses. Data Data Last Documented VS Vital Signs Date Time Temp Pulse Resp B/P (MAP) Pulse Ox O2 Delivery O2 Flow Rate FiO2 02/09/17 15:24 72 16 132/67 (88) 92 Room Air 02/09/17 14:28 98.4 Orders Orders Us Leg Venous Doppler (02/09/17 ) MDM Medical Decision Making Medical Screen Exam Complete: Yes Emergency Medical Condition: Yes Interpretation(s) My review of ultrasound: Negative. Differential Diagnosis DVT, chronic cellulitis, chronic edema, other Narrative Course 77-year-old with lower Karlene edema, history of lower Karlene edema, looks well. Dialysis is worried about a DVT. We did an ultrasound. I reviewed it, seems negative. Patient is eager to be discharged. I told her all follow-up on the final results and call her if there is any changes. Diagnosis Primary Impression: Leg swelling Additional Instructions: follow-up with your primary doctor in the next 2-4 days. Return to the emergency department for any new or worsening symptoms. Med/Other Pt SpecificInfo: No Change to Meds Disposition: 01 DISCHARGE HOME Condition: Stable Fabián Holm MD Feb 09, 2017 16:13
--- NOTE | 2017-02-09 16:24 | RADRPT ---
EXAM DATE/TIME: 02/09/2017 14:56 [facility] COMPARISON: No previous studies available for comparison. INDICATIONS : Right leg edema. MEDICAL HISTORY : Hypercholesterolemia. Gastroesophageal reflux disease. Chronic obstructive pulmonary disease. Leon estive heart failure. Deep vein thrombosis. Hypertension. Hernia, hiatal. Diabetes. Depression. SURGICAL HISTORY : Total knee replacement, right. Arthroscopy, left knee. Cervical fusion. ENCOUNTER: Subsequent ACUITY: >1 year PAIN SCORE: 0/10 LOCATION: Right leg. TECHNIQUE: Venous ultrasound of the leg was performed from the inguinal ligament to the proximal calf. Real-antonella e, color Doppler and spectral tracing, compression and augmentation techniques were used. FINDINGS: There is normal compressibility of the deep venous system from the inguinal region to the proximal ca lf. No echogenic clot is seen in the lumen of the common femoral, femoral, popliteal, and posterior tibial veins. There is a normal response of the venous system to proximal and distal augmentation an d respiration. CONCLUSION: Negative exam. No sonographic or Doppler findings of deep venous thrombosis. Patrick Rodriguez MD on February 09, 2017 at 16:22 Board Certified Radiologist. This report was verified electronically.
== END 2017-02-09 16:22 | disposition home or self-care (01) ==
LOC: PHED 14:14
DX: M79.89 Other specified soft tissue disorders (principal); E11.9 Type 2 diabetes mellitus without complications; E78.5 Hyperlipidemia, unspecified; I11.0 Hypertensive heart disease with heart failure; I50.9 Heart failure, unspecified; J44.9 Chronic obstructive pulmonary disease, unspecified; Z99.81 Dependence on supplemental oxygen; Z96.651 Presence of right artificial knee joint; Z86.718 Personal history of other venous thrombosis and embolism
CPT/HCPCS: 93971; 99284

== ENCOUNTER 2017-09-15 08:44 | Inpatient (IN) | payer MEDICARE ==
[~2017-09-15] VITALS: Ht 157.5 cm; Wt 94.4 kg
[2017-09-15] VITALS (34 sets, daily range): BP systolic 89–215; BP diastolic 47–101; PULSE 57–85; RESP 17–28; TEMP 96.8–99.5; O2SAT 86–100
[~2017-09-15 08:44] MED LIST changes: -DOCU100C PO; +DOCU100C15 PO; +EZET10 PO; -FERR325T20 PO; -OMEP20TA PO; +OMEP20TA93 PO; -PRED5TAB PO; -VENTAER INH; -ZETI10TA5 PO
[2017-09-15] MEDS ORDERED: PIPERACIL-TAZO 4.5 GM PREMIX 100 ML IV STA (08:54)
[2017-09-15] MEDS ORDERED: VANCOMYCIN INJ 1,000 MG in SODIUM CHLOR 0.9% 250 ML INJ 250 ML IV STA (08:54)
[2017-09-15] MEDS ORDERED: SODIUM CHLOR 0.9% 1000 ML INJ 1,000 ML IV ONE ×2 (09:00)
--- NOTE | 2017-09-15 09:02 | PD ---
HPI Chief Complaint: General Weakness Time Seen by Provider: 08:50 Travel History International Travel<30 days: No Contact w/Intl Traveler<30days: No Traveled to known affect area: No History of Present Illness HPI 77 y/o female presents with feeling like she could not set up and weak. She had told the ambulance team that she felt short of breath but denies that currently. When the ambulance team got on scene she was hypotensive and shortly after that she had a syncopal event. They gave her about 800 cc of IV fluids but her pressure did not improve from a systolic in the 80s. History is limited from patient given clinical acuity. PFSH Past Medical History Arthritis: No Asthma: Yes Autoimmune Disease: No Blood Disorders: No Anxiety: Yes Depression: Yes Heart Rhythm Problems: No Cancer: No Cardiovascular Problems: Yes High Cholesterol: Yes Chemotherapy: No Chest Pain: No Congestive Heart Failure: Yes COPD: Yes Cerebrovascular Accident: No Diabetes: Yes Patient Takes Glucophage: No Endocrine: No Gastrointestinal Disorders: Yes GERD: Yes Genitourinary: No Hiatal Hernia: Yes Heparin Induced Thrombocytopen: No Hypertension: Yes Immune Disorder: No Implanted Vascular Access Dvce: Yes Kidney Stones: No Musculoskeletal: Yes Neurologic: Yes Psychiatric: Yes Reproductive: No Respiratory: Yes Migraines: No Radiation Therapy: No Renal Failure: No Seizures: No Sickle Cell Disease: No Sleep Apnea: No Thyroid Disease: No Ulcer: No ?: Not Menopausal: Yes Past Surgical History Abdominal Surgery: No AICD: No Arteriovenous Shunt: No Body Medical Devices: CERVICAL FUSION Cardiac Surgery: No Ear Surgery: No Endocrine Surgery: No Eye Surgery: No Genitourinary Surgery: No Gynecologic Surgery: No Insulin Pump: No Joint Replacement: Yes (right knee) Oral Surgery: No Pacemaker: No Thoracic Surgery: No Other Surgery: Yes (RIGHT KNEE) Social History Alcohol Use: No Tobacco Use: No Substance Use: No Allergies-Medications (Allergen,Severity, Reaction): Coded Allergies: scallops (Unverified Allergy, Mild, CONFUSION, 09/15/17) Reported Meds & Prescriptions Reported Meds & Active Scripts Active Alprazolam 0.5 Mg Tab 0.5 Mg PO HS Pravachol (Pravastatin) 80 Mg Tab 80 Mg PO DAILY Furosemide 20 Mg Tab 20 Mg PO DAILY@1200 Lisinopril 20 Mg Tab 20 Mg PO DAILY Calcium Oyster Shell (Oyster Shell) 500 Mg Tab 500 Mg PO DAILY Xarelto (Rivaroxaban) 15 Mg Tab 15 Mg PO BID Symbicort Inh (Budesonide/Formoterol Fumarate) 160-4.5 Mcg/Act Aero 2 Puff INH BID Zoloft (Sertraline HCl) 100 Mg Tab 100 Mg PO BID [place] (Hydrocodone-Acetaminophen) 5-325 mg Tab 1 Tab PO Q12HR PRN Omeprazole 20 Mg Tab 20 Mg PO DAILY Zetia (Ezetimibe) 10 Mg Tab 10 Mg PO DAILY Review of Systems Except as stated in HPI: all other systems reviewed are Neg Physical Exam Narrative GENERAL: 77-year-old female who appears ill SKIN: Focused skin assessment warm/dry. Pale HEAD: Atraumatic. Normocephalic. EYES: Pupils equal and round. No scleral icterus. No injection or drainage. ENT: No nasal bleeding or discharge. Mucous membranes pink and moist. NECK: Trachea midline. No JVD. CARDIOVASCULAR: Regular rate and rhythm. RESPIRATORY: No accessory muscle use. Decreased aeration bilaterally. GASTROINTESTINAL: Abdomen soft, non-tender, nondistended. MUSCULOSKELETAL: No obvious deformities. No clubbing. No cyanosis. NEUROLOGICAL: Awake and alert. Moves extremities. Normal speech. Data Data Last Documented VS Vital Signs Date Time Temp Pulse Resp B/P (MAP) Pulse Ox O2 Delivery O2 Flow Rate FiO2 09/15/17 10:23 98.0 61 25 121/58 94 09/15/17 09:41 Nasal Cannula 3.00 Orders Orders Sepsis Workup Initiated (09/15/17 ) Electrocardiogram (09/15/17 08:50) Complete Blood Count With Diff (09/15/17 08:50) Comprehensive Metabolic Panel (09/15/17 08:50) Prothrombin Time / Inr (Pt) (09/15/17 08:50) Act Partial Throm Time (Ptt) (09/15/17 08:50) Lactic Acid Sepsis Protocol (09/15/17 08:50) Magnesium (Mg) (09/15/17 08:50) Phosphorus (Po4) (09/15/17 08:50) Lipase (09/15/17 08:50) Ckmb (Isoenzyme) Profile (09/15/17 08:50) Troponin I (09/15/17 08:50) Urinalysis - C+S If Indicated (09/15/17 08:50) Influenzae A/B Antigen (09/15/17 08:50) Blood Culture (09/15/17 08:50) Chest, Single Ap (09/15/17 08:50) Ecg Monitoring (09/15/17 08:50) Iv Access Insert/Monitor (09/15/17 08:50) Oximetry (09/15/17 08:50) Sodium Chlor 0.9% 1000 Ml Inj (Ns 1000 M (09/15/17 09:00) B-Type Natriuretic Peptide (09/15/17 08:51) Vancomycin Inj (Vancomycin Inj) (09/15/17 08:54) Piperacil-Tazo 4.5 Gm Premix (Zosyn 4.5 (09/15/17 08:54) Sodium Chlor 0.9% 1000 Ml Inj (Ns 1000 M (09/15/17 09:00) Red Blood Cells (Rbc) (09/15/17 09:23) Arterial Blood Gas (Abg) (09/15/17 ) Type And Screen (09/15/17 09:23) Blood Product Administration (09/15/17 09:44) Sodium Chlor 0.9% 250 Ml Inj (Ns 250 Ml (09/15/17 09:45) Ct Thorax/ Chest W Iv Contrast (09/15/17 09:49) Ct Abd/Pel W Iv Contrast(Rout) (09/15/17 09:49) Pantoprazole Inj (Protonix Inj) (09/15/17 10:15) Albuterol-Ipratropium Neb (Duoneb Neb) (09/15/17 10:15) Admit Order (Ed Use Only) (09/15/17 10:31) Labs Laboratory Tests Test 09/15/17 09:21 09/15/17 09:30 09/15/17 09:33 09/15/17 09:45 Urine Color YELLOW Urine Turbidity CLEAR Urine pH 6.0 Urine Specific [place] 1.013 Urine Protein 30 mg/dL Urine Glucose (UA) NEG mg/dL Urine Ketones NEG mg/dL Urine Occult Blood NEG Urine Nitrite NEG Urine Bilirubin NEG Urine Urobilinogen LESS THAN 2.0 MG/DL Urine Leukocyte Esterase NEG Urine RBC 4 /hpf Urine WBC 1 /hpf Urine Hyaline Casts 9 /lpf Urine Mucus FEW /lpf Microscopic Urinalysis Comment CATH-CULT NOT IND White Blood Count 6.1 TH/MM3 Red Blood Count 1.16 MIL/MM3 Hemoglobin 2.7 GM/DL Hematocrit 9.5 % Mean Corpuscular Volume 81.9 FL Mean Corpuscular Hemoglobin 23.6 PG Mean Corpuscular Hemoglobin Concent 28.8 % Red Cell Distribution Width 26.9 % Platelet Count 188 TH/MM3 Mean Platelet Volume 7.7 FL Neutrophils (%) (Auto) 75.1 % Lymphocytes (%) (Auto) 12.5 % Monocytes (%) (Auto) 9.8 % Eosinophils (%) (Auto) 2.1 % Basophils (%) (Auto) 0.5 % Neutrophils # (Auto) 4.6 TH/MM3 Lymphocytes # (Auto) 0.8 TH/MM3 Monocytes # (Auto) 0.6 TH/MM3 Eosinophils # (Auto) 0.1 TH/MM3 Basophils # (Auto) 0.0 TH/MM3 CBC Comment AUTO DIFF Differential Total Cells Counted 100 Neutrophils % (Manual) 85 % Band Neutrophils % 1 % Lymphocytes % 6 % Monocytes % 5 % Eosinophils % 3 % Neutrophils # (Manual) 5.2 TH/MM3 Nucleated Red Blood Cells 10 /100 WBC Differential Comment FINAL DIFF MANUAL Platelet Estimate NORMAL Platelet Morphology Comment NORMAL Tear Drop Cells 1+ Ovalocytes 1+ Prothrombin Time 10.5 SEC Prothromb Time International Ratio 1.0 RATIO Activated Partial Thromboplast Time 18.7 SEC Blood Urea Nitrogen 17 MG/DL Creatinine 1.09 MG/DL Random Glucose 151 MG/DL Total Protein 5.3 GM/DL Albumin 2.3 GM/DL Calcium Level 7.0 MG/DL Phosphorus Level 3.0 MG/DL Magnesium Level 2.4 MG/DL Alkaline Phosphatase 99 U/L Aspartate Amino Transf (AST/SGOT) 7 U/L Alanine Aminotransferase (ALT/SGPT) 7 U/L Total Bilirubin 0.2 MG/DL Sodium Level 143 MEQ/L Potassium Level 5.4 MEQ/L Chloride Level 110 MEQ/L Carbon Dioxide Level 27.7 MEQ/L Anion Gap 5 MEQ/L Estimat Glomerular Filtration Rate 49 ML/MIN Protein Corrected Calcium 7.9 MG/DL Total Creatine Kinase 31 U/L Troponin I LESS THAN 0.02 NG/ML B-Type Natriuretic Peptide 505 PG/ML Lipase 303 U/L Blood Gas Puncture Site RT RADIAL Blood Gas Patient Temperature 98.6 Blood Gas HCO3 24 mmol/L Blood Gas Base Excess -1.8 mmol/L Blood Gas Oxygen Saturation 96 % Arterial Blood pH 7.26 Arterial Blood Partial Pressure CO2 57 mmHg Arterial Blood Partial Pressure O2 102 mmHG Arterial Blood Oxygen Content 3.6 Vol % Arterial Blood Carboxyhemoglobin 3.3 % Arterial Blood Methemoglobin 0.0 % Blood Gas Hemoglobin 2.5 G/DL Oxygen Delivery Device NASAL CANNULA Blood Gas Liter Flow 2.5 L/M Lactic Acid Level 2.6 mmol/L MDM Medical Decision Making Medical Screen Exam Complete: Yes Emergency Medical Condition: Yes Medical Record Reviewed: Yes (Past history confirmed, prior hospitalization with respiratory failure noted) Interpretation(s) CBC & BMP Diagram 09/15/17 09:30 Total Protein 5.3 L, Albumin 2.3 L, Calcium Level 7.0 *L, Phosphorus Level 3.0, Magnesium Level 2.4, Alkaline Phosphatase 99, Aspartate Amino Transf (AST/SGOT) 7 L, Alanine Aminotransferase (ALT/SGPT) 7 L, Total Bilirubin 0.2 Last [address] 09/15/17 0949 Signed Impressions: Service Date/Time: August 11:05 - CONCLUSION: 1. No focal or acute intrathoracic disease. 2. Elevation of left hemidiaphragm. Jeremias Worthy MD Abdomen/Pelvis CT 09/15/17 0949 Signed Impressions: Service Date/Time: August 11:05 - CONCLUSION: 1. There is a large left adnexal/pelvic complex mass measuring 11 cm. There is a diffusely abnormal enlarged uterus with abnormal cystic changes in the lower uterine segment. These findings suggest ENVIRONMENTAL CONSULTANT neoplastic disease. 2. Gallstone in the gallbladder with no biliary tract obstruction. 3. Scattered diverticulosis of the descending and sigmoid colon without inflammatory changes. Jeremias Worthy MD Chest X-Ray 09/15/17 0850 Signed Impressions: Service Date/Time: August 09:36 - CONCLUSION: No acute disease. No significant change has occurred. Jeremias Worthy MD Pelvis Ultrasound 09/15/17 0000 Signed Impressions: Service Date/Time: August 12:22 - CONCLUSION: Large complex cystic lesions in the midline measuring 12.7 x 10.4 x 10.8 cm and within the left adnexal region measuring 14.3 x 10.0 x 8.8 cm raising the possibility of ovarian neoplasm until proven otherwise. Nilesh Salas MD repeat hemoglobin is 8 Differential Diagnosis COPD, anemia, renal failure, septic shock, hypovolemia Narrative Course We will check blood work, chest x-ray, urinalysis and dose with IV fluids and broad-spectrum antibiotic coverage and closely monitor. Lab called stating that hemoglobin was too and they were concerned that it was diluted and asked for repeats. At that time ordered stat ABG which confirms hemoglobin is 2.5. She also has respiratory acidosis. Removed nasal cannula oxygen and went to reassess patient to consider BiPAP. Patient is smiling with normal room air saturation and blood pressure has improved some. Will hold off on BiPAP in order stat emergency release blood. Bedside guaiac is negative. We will add on CT chest and abdomen given critical anemia. Patient is receiving her fourth unit of blood and is feeling much better. She is still on BiPAP and is starting to have a couple crackles on her bases. Will check chest x-ray to assess fluid status and continue to monitor. Patient updated about CTs and does not recall prior history of pelvic mass. She states she follows with Dr. Kate closely. She agrees to admission in ICU. Patient was able to be weaned off BiPAP and her chest x-ray is clear. Will repeat H&H after patient has received a total of 4 units of blood Critical Care Narrative Aggregate critical care time was 75 minutes. Time to perform other separately billable procedures was not included in the critical care time. My time did not include minutes spent treating any other patients simultaneously or on activities that did not directly contribute to the patient's treatment. The services I provided to this patient were to treat and/or prevent clinically significant deterioration that could result in: Hemorrhagic shock, I provided critical care services requiring my management, as noted below: Chart data review, documentation time, medication orders and management, vital sign assessments/reviewing monitor data, ordering and reviewing lab tests, ordering and interpreting/reviewing x-rays and diagnostic studies, care of the patient and discussion of the patient with the admitting physicians. Physician Communication Physician Communication dr luz agrees to admit Diagnosis Primary Impression: Hemorrhagic shock Additional Impressions: Acute respiratory acidosis Pelvic mass Admitting Information Admitting Physician Requests: Admit Nina Melendez MD Sep 15, 2017 09:02
[2017-09-15] MEDS ORDERED: SODIUM CHLOR 0.9% 250 ML INJ 250 ML IV ONE (09:45)
[2017-09-15 09:49] LABS: AUTOMATED NEUTROPHIL # 4.6 TH/MM3 (1.8-7.7); BASOPHIL % 0.5 % (0.0-2.0); EOSINOPHIL # 0.1 TH/MM3 (0-0.4); EOSINOPHIL % 2.1 % (0.0-4.0); LYMPH % 12.5 % (9.0-44.0); LYMPHOCYTE # 0.8 TH/MM3 (1.0-4.8); MEAN CELL VOLUME 81.9 FL (80.0-100.0); MEAN CORPUSCULAR HEMOGLOBIN 23.6 PG (27.0-34.0); MEAN CORPUSCULAR HGB CONC 28.8 % (32.0-36.0); MEAN PLATELET VOLUME 7.7 FL (7.0-11.0); MONO % 9.8 % (0.0-8.0); MONOCYTE # 0.6 TH/MM3 (0-0.9); NEUT % 75.1 % (16.0-70.0); PLATELET COUNT 188 TH/MM3 (150-450); RED BLOOD COUNT 1.16 MIL/MM3 (4.00-5.30); RED CELL DISTRIBUTION WIDTH 26.9 % (11.6-17.2); WHITE BLOOD COUNT 6.1 TH/MM3 (4.0-11.0)
[2017-09-15 09:51] LABS: HEMATOCRIT 9.5 % (35.0-46.0); HEMOGLOBIN 2.7 GM/DL (11.6-15.3)
[2017-09-15 09:57] LABS: LACTIC ACID SEPSIS PROTOCOL 2.6 mmol/L (0.4-2.0)
[2017-09-15 09:58] LABS: BILIRUBIN, URINE NEG (NEG); BLOOD, URINE NEG (NEG); GLUCOSE,URINE NEG (NEG); HYALINE CAST, URINE 9 /lpf (RARE); KETONE, URINE NEG (NEG); MUCUS URINE FEW /lpf (OCC); NITRITE,URINE NEG (NEG); URINE COLOR YELLOW (YELLW/STRAW); URINE LEUKOCYTE ESTERASE NEG (NEG)
[2017-09-15 10:02] LABS: ALBUMIN 2.3 GM/DL (3.4-5.0); ALKALINE PHOSPHATASE 99 U/L (45-117); ALT (GPT) 7 U/L (10-53); AST (GOT) 7 U/L (15-37); BICARBONATE 27.7 MEQ/L (21.0-32.0); CALCIUM-PROTEIN CORRECTED 7.9 MG/DL (8.5-10.1); CHLORIDE 110 MEQ/L (98-107); CREATININE 1.09 MG/DL (0.50-1.00); GLOMERULAR FILTRATION RATE 49 ML/MIN (>89); GLUCOSE,RANDOM 151 MG/DL (74-106); MAGNESIUM 2.4 MG/DL (1.5-2.5); SODIUM (NA) 143 MEQ/L (136-145); TOTAL BILIRUBIN ADULT 0.2 MG/DL (0.2-1.0); TOTAL PROTEIN 5.3 GM/DL (6.4-8.2); TROPONIN I LESS THAN 0.02 NG/ML (0.02-0.05)
[2017-09-15 10:06] LABS: PROTHROMBIN TIME - PATIENT 10.5 SEC (9.8-11.6)
[2017-09-15] MEDS ORDERED: RESP: ALBUTEROL 2.5 MG/IPRATROPIUM 0.5 MG NEB (SCH) NEB ONE (10:15)
[2017-09-15] MEDS ORDERED: PANTOPRAZOLE SODIUM 40 MG VIAL IV PUSH ONE (10:15)
[2017-09-15 10:21] LABS: BANDS 1 % (0-6); CORRECTED NUCLEATED RBC 10 /100 WBC (0-0); LYMPHOCYTES 6 % (9-44); MONOCYTES 5 % (0-8); NEUTROPHIL # MANUAL DIFF 5.2 TH/MM3 (1.8-7.7); NUCLEATED RED BLOOD CELL 10 (0-0); POLYS (SEG NEUTROPHILS) 85 % (16-70)
[2017-09-15 10:24] LABS: OVALOCYTES 1+ (NORMAL); TEARDROP RBCS 1+ (NORMAL)
--- NOTE | 2017-09-15 10:32 | RADRPT ---
EXAM DATE/TIME: 09/15/2017 09:36 [facility] COMPARISON: CHEST SINGLE AP, November 08, 2016, 13:40. INDICATIONS : Palpitations MEDICAL HISTORY : Hypercholesterolemia. Gastroesophageal reflux disease. Chronic obstructivepulmonary disease. Congesti ve heart failure. Deep vein thrombosis. Hypertension. Hernia, hiatal. Diabetes. Depression SURGICAL HISTORY : Total knee replacement, right. Arthroscopy, left knee. Cervical fusion ENCOUNTER: Initial ACUITY: 1 day PAIN SCORE: 0/10 LOCATION: chest FINDINGS: A single view of the chest demonstrates the lungs to be aerated without evidence of mass, infiltrate or effusion. Persistent elevation of left hemidiaphragm. The heart size is enlarged but stable.. Os seous structures are intact. No significant changes. CONCLUSION: No acute disease. No significant change has occurred. Jeremias Worthy MD on September 15, 2017 at 10:30 Board Certified Radiologist. This report was verified electronically.
[2017-09-15 10:34] LABS: BLOOD UREA NITROGEN 17 MG/DL (7-18)
[2017-09-15] MEDS ORDERED: IOHEXOL 350 MG/ML 10 ML VIAL (for RAD DIAG) IVCONTRAST ONE (11:19)
--- NOTE | 2017-09-15 11:27 | RADRPT ---
EXAM DATE/TIME: 09/15/2017 11:05 [facility] COMPARISON: CHEST SINGLE AP, September 15, 2017, 9:36. INDICATIONS : Shortness of breath. IV CONTRAST: 94 cc Omnipaque 350 (iohexol) IV ; Cumulative dose for multiple exams. RADIATION DOSE: 7.78 CTDIvol (mGy) ; Combined studies - Thorax/Abdomen/Pelvis MEDICAL HISTORY : Cardiovascular disease. Hypertension. Diabetes mellitus type 2.COPD, Asthma, GERD. SURGICAL HISTORY : None. ENCOUNTER: Initial ACUITY: 1 day PAIN SCALE: 5/10 LOCATION: chest TECHNIQUE: Volumetric scanning of the chest was performed. Using automated exposure control and adjustment of t he mA and/or kV according to patient size, radiation dose was kept as low as reasonably achievable to obtain optimal diagnostic quality images. DICOM format image data is available electronically for review and comparison. Follow-up recommendations for detected pulmonary nodules are based at a minimum on nodule size and pa tient risk factors according to Fleischner Society Guidelines. FINDINGS: LUNGS: There is no consolidation or pneumothorax. No concerning pulmonary nodule is visualized. There is el evation of the left hemidiaphragm. PLEURA: There is no pleural thickening or pleural effusion. MEDIASTINUM: The heart and great vessels demonstrate no acute abnormality. There is no mediastinal or hilar lymph adenopathy. Prominent left azygos vein. Atherosclerotic changes in the aorta. Coronary calcifications . AXILLAE: Within normal limits. No lymphadenopathy. SKELETAL: Within normal limits for patient age. MISCELLANEOUS: The visualized upper abdominal organs demonstrate no acute abnormality. CONCLUSION: 1. No focal or acute intrathoracic disease. 2. Elevation of left hemidiaphragm. Jeremias Worthy MD on September 15, 2017 at 11:24 Board Certified Radiologist. This report was verified electronically.
--- NOTE | 2017-09-15 11:36 | RADRPT ---
EXAM DATE/TIME: 09/15/2017 11:05 [facility] COMPARISON: No previous studies available for comparison. INDICATIONS : Abdominal pain. IV CONTRAST: 94 cc Omnipaque 350 (iohexol) IV ; Cumulative dose for multiple exams. ORAL CONTRAST: No oral contrast ingested. RADIATION DOSE: 7.87 CTDIvol (mGy) ; Combined studies - Thorax/Abdomen/Pelvis MEDICAL HISTORY : Cardiovascular disease. Hypertension. Chronic obstructive pulmonary disease.Diabetes, Asthma, GERD. SURGICAL HISTORY : None. ENCOUNTER: Initial ACUITY: 1 day PAIN SCALE: 5/10 LOCATION: abdomen TECHNIQUE: Volumetric scanning of the abdomen and pelvis was performed. Using automated exposure control and ad justment of the mA and/or kV according to patient size, radiation dose was kept as low as reasonably achievable to obtain optimal diagnostic quality images. DICOM format image data is available electro nically for review and comparison. FINDINGS: LOWER LUNGS: The visualized lower lungs are clear. There is elevation of the left hemidiaphragm. LIVER: Homogeneous density without lesion. There is no dilation of the biliary tree. Gallstone in gallbladd er. Small amount of fluid around the gallbladder. Mild periportal edema. SPLEEN: Normal size without lesion. PANCREAS: Within normal limits. KIDNEYS: Normal in size and shape. There is no mass, stone or hydronephrosis. ADRENAL GLANDS: Within normal limits. VASCULAR: There is no aortic aneurysm. BOWEL/MESENTERY: The stomach, small bowel, and colon demonstrate no acute abnormality. There is no free intraperitone al air or fluid. Diverticula along the descending and sigmoid colon without inflammatory changes. ABDOMINAL WALL: Within normal limits. RETROPERITONEUM: There is no lymphadenopathy. BLADDER: Arellano catheter. Decompressed. REPRODUCTIVE: The uterus is diffusely enlarged and abnormal in appearance measuring 14.8 cm x 9.6 cm. There is some nonspecific cyst cystic changes in the lower uterine segment. There is a large left adnexal/pelvic m ass measuring 11.0 cm x 8.9 cm. The mass appears to be complex. No definite free fluid is seen in the cul-de-sac. INGUINAL: There is no lymphadenopathy or hernia. MUSCULOSKELETAL: Within normal limits for patient age. Diffuse degenerative changes. CONCLUSION: 1. There is a large left adnexal/pelvic complex mass measuring 11 cm. There is a diffusely abnormal e nlarged uterus with abnormal cystic changes in the lower uterine segment. 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 2. Gallstone in the gallbladder with no biliary tract obstruction. 3. Scattered diverticulosis of the descending and sigmoid colon without inflammatory changes. Jeremias Worthy MD on September 15, 2017 at 11:25 Board Certified Radiologist. This report was verified electronically.
--- NOTE | 2017-09-15 13:18 | RADRPT ---
EXAM DATE/TIME: 09/15/2017 12:22 [facility] COMPARISON: CT ABDOMEN & PELVIS W CONTRAST, September 15, 2017, 11:05. INDICATIONS : Adnexal mass. MEDICAL HISTORY : Hypercholesterolemia. Gastroesophageal reflux disease. Chronic obstructive pulmonary disease. Congest cari heart failure. Deep vein thrombosis. Hypertension. Hernia, hiatal. Diabetes. Depression. SURGICAL HISTORY : Total knee replacement, right. Arthroscopy, left knee. Cervical fusion. ENCOUNTER: Initial ACUITY: 1 day PAIN SCORE: 0/10 LOCATION: Bilateral pelvis FINDINGS: There is a large complex cystic lesion within the midline measuring 12.7 x 10.4 x 10.8 cm which is in determinate. A second large complex cystic areas noted within the left adnexal region measuring 14.3 x 10.0 x 8.8 cm. The findings raise the possibility of ovarian neoplasm until proven otherwise. The u terus is not definitely visualized sonographically. CONCLUSION: Large complex cystic lesions in the midline measuring 12.7 x 10.4 x 10.8 cm and withi n the left adnexal region measuring 14.3 x 10.0 x 8.8 cm raising the possibility of ovarian neoplasm until proven otherwise. Nilesh Salas MD on September 15, 2017 at 13:13 Board Certified Radiologist. This report was verified electronically.
--- NOTE | 2017-09-15 14:39 | RADRPT ---
EXAM DATE/TIME: 09/15/2017 14:18 [facility] COMPARISON: CHEST SINGLE AP, September 15, 2017, 9:36. INDICATIONS : Short of breath. MEDICAL HISTORY : Cardiovascular disease. Hypertension. Diabetes mellitus type 2.COPD, Asthma, GERD. SURGICAL HISTORY : None. ENCOUNTER: Initial ACUITY: 1 day PAIN SCORE: Non-responsive. LOCATION: Bilateral chest FINDINGS: A single view of the chest demonstrates the lungs to be aerated without evidence of mass, infiltrate or effusion. Stable elevation of the left hemidiaphragm. There is some mild linear atelectasis in the left lung base just above the diaphragm. The cardiomediastinal contours are unremarkable. Osseous s tructures are intact. No significant changes compared to the prior study. CONCLUSION: Left lower lung atelectasis. Otherwise, no significant change compared to the prior exam Jeremias Worthy MD on September 15, 2017 at 14:36 Board Certified Radiologist. This report was verified electronically.
--- NOTE | 2017-09-15 18:44 | HHI.HP ---
[facility] Service Critical Care Medicine Primary Care Physician Jaiden Kate MD Admission Diagnosis Hemorrhagic shock, respiratory acidosis Diagnosis: Chief Complaint: fatigue Travel History International Travel<30 Days: No Contact w/Intl Traveler <30 Da: No Traveled to Known Affected Are: No History of Present Illness This is a 77yF with history of COPD who presents with severe fatigue and frequent falls. She was severely altered when she was admitted by EMS so no history was obtainable by her. In the emergency department, she was found to have a hgb 2. she was given 3 units PRBC emergently. her mental status improved with blood transfusion. When I evaluated the patient, she was awake and alert. she is, however, very confused and only oriented to person. she does endorse frequent falls and fatigue. due to her confusion, she is a very poor historian and very difficult to obtain a reliable history from. ROS is essentially unobtainable other than her frequent falls and fatigue. she continues to perseverate on wanting to go home. When asked additional questions about her medical history, she keeps stating "I'm falling a lot. and I'm very tired." After blood transfusions, she is on 1L o2 by NC and hemodynamically stable, and has remained stable for 8 hours in the emergency department. As part of the work-up for her anemia, CT chest/abd/pelvis demonstrates a very large cystic mass in her pelvis which is concerning for malignancy. she states she knows nothing of this. Review of Systems ROS Limitations: Clinical Condition, Uncooperative, Poor Historian Past Family Social History Allergies: Coded Allergies: scallops (Unverified Allergy, Mild, CONFUSION, 09/15/17) Past Medical History Hypertension GERD Anxiety/depression. Diabetes. COPD on home O2 Past Surgical History unknown due to her confusion and poor historian. Reported Medications Alprazolam 0.5 Mg Tab 0.5 Mg PO HS Pravachol (Pravastatin) 80 Mg Tab 80 Mg PO DAILY Furosemide 20 Mg Tab 20 Mg PO DAILY@1200 Lisinopril 20 Mg Tab 20 Mg PO DAILY Calcium Oyster Shell (Oyster Shell) 500 Mg Tab 500 Mg PO DAILY Xarelto (Rivaroxaban) 15 Mg Tab 15 Mg PO BID Symbicort Inh (Budesonide/Formoterol Fumarate) 160-4.5 Mcg/Act Aero 2 Puff INH BID Zoloft (Sertraline HCl) 100 Mg Tab 100 Mg PO BID [place] (Hydrocodone-Acetaminophen) 5-325 mg Tab 1 Tab PO Q12HR PRN Omeprazole 20 Mg Tab 20 Mg PO DAILY Zetia (Ezetimibe) 10 Mg Tab 10 Mg PO DAILY Active Ordered Medications See MAR Family History unknown due to her mental status. Social History unknown due to her mental status. she does state she lives with her niece who is also 76 years old. she states it is difficult for them to take care of each other. Physical Exam Vital Signs Vital Signs Date Time Temp Pulse Resp B/P (MAP) Pulse Ox O2 Delivery O2 Flow Rate FiO2 09/15/17 18:28 82 18 156/68 (97) 95 Nasal Cannula 1.00 09/15/17 16:45 80 19 176/75 (108) 95 Nasal Cannula 1.00 09/15/17 15:40 78 19 180/80 (113) 96 Nasal Cannula 1.00 09/15/17 15:33 97 Nasal Cannula 3.00 09/15/17 15:00 Nasal Cannula 3.00 09/15/17 14:31 75 21 186/72 (110) 98 BiPAP 30 09/15/17 14:05 76 21 215/101 95 09/15/17 13:55 22 191/76 94 09/15/17 13:50 72 21 191/76 96 09/15/17 13:50 96 30 09/15/17 13:45 74 21 154/68 95 09/15/17 13:40 74 20 154/88 96 09/15/17 13:30 74 22 132/63 95 09/15/17 13:12 97.0 74 21 127/63 100 09/15/17 12:48 96.8 71 21 137/64 94 09/15/17 12:45 96.8 72 21 137/64 96 09/15/17 11:53 98.2 67 22 118/56 98 09/15/17 11:43 97.8 69 28 128/72 09/15/17 11:27 97.6 70 22 132/63 09/15/17 11:25 22 96 BiPAP 30 09/15/17 11:25 95 30 09/15/17 10:55 63 26 110/75 86 09/15/17 10:48 97.8 64 26 110/52 09/15/17 10:43 97.8 65 26 127/51 09/15/17 10:23 98.0 61 25 121/58 94 09/15/17 10:06 97.7 65 17 103/52 96 09/15/17 10:02 97.7 68 20 98/50 97 09/15/17 09:41 57 19 95/47 (63) 100 Nasal Cannula 3.00 09/15/17 09:40 66 18 90/50 (63) 99 Nasal Cannula 3.00 09/15/17 09:05 74 19 141/59 (86) 98 Nasal Cannula 2.00 09/15/17 09:00 97.5 09/15/17 08:53 97 Nasal Cannula 3.00 09/15/17 08:47 68 20 89/ 98 Physical Exam gen: elderly female, sitting in bed, no acute distress. heent: perrl. nomocephalic. atraumatic. sclerae pale. neck: slight JVD a few cm above the clavicle. trachea midline. chest: 1L o2 by nc. unlabored. equal chest rise cv: normal rate, regular rhythm. sinus by tele. abd: soft, nontender, nondistended. palpable mass in the mid-pelvis which is firm. no guarding or rebound. neuro: RASS 0. CAM+. oriented to person only. no focal deficits, moves all extremities. follows commands. Laboratory Laboratory Tests Test 09/15/17 09:21 09/15/17 09:30 09/15/17 09:33 09/15/17 09:45 Urine Color YELLOW Urine Turbidity CLEAR Urine pH 6.0 Urine Specific [place] 1.013 Urine Protein 30 Urine Glucose (UA) NEG Urine Ketones NEG Urine Occult Blood NEG Urine Nitrite NEG Urine Bilirubin NEG Urine Urobilinogen LESS THAN 2.0 Urine Leukocyte Esterase NEG Urine RBC 4 Urine WBC 1 Urine Hyaline Casts 9 Urine Mucus FEW Microscopic Urinalysis Comment CATH-CULT NOT IND White Blood Count 6.1 Red Blood Count 1.16 Hemoglobin 2.7 Hematocrit 9.5 Mean Corpuscular Volume 81.9 Mean Corpuscular Hemoglobin 23.6 Mean Corpuscular Hemoglobin Concent 28.8 Red Cell Distribution Width 26.9 Platelet Count 188 Mean Platelet Volume 7.7 Neutrophils (%) (Auto) 75.1 Lymphocytes (%) (Auto) 12.5 Monocytes (%) (Auto) 9.8 Eosinophils (%) (Auto) 2.1 Basophils (%) (Auto) 0.5 Neutrophils # (Auto) 4.6 Lymphocytes # (Auto) 0.8 Monocytes # (Auto) 0.6 Eosinophils # (Auto) 0.1 Basophils # (Auto) 0.0 CBC Comment AUTO DIFF Differential Total Cells Counted 100 Neutrophils % (Manual) 85 Band Neutrophils % 1 Lymphocytes % 6 Monocytes % 5 Eosinophils % 3 Neutrophils # (Manual) 5.2 Nucleated Red Blood Cells 10 Differential Comment FINAL DIFF MANUAL Platelet Estimate NORMAL Platelet Morphology Comment NORMAL Tear Drop Cells 1+ Ovalocytes 1+ Prothrombin Time 10.5 Prothromb Time International Ratio 1.0 Activated Partial Thromboplast Time 18.7 Blood Urea Nitrogen 17 Creatinine 1.09 Random Glucose 151 Total Protein 5.3 Albumin 2.3 Calcium Level 7.0 Phosphorus Level 3.0 Magnesium Level 2.4 Alkaline Phosphatase 99 Aspartate Amino Transf (AST/SGOT) 7 Alanine Aminotransferase (ALT/SGPT) 7 Total Bilirubin 0.2 Sodium Level 143 Potassium Level 5.4 Chloride Level 110 Carbon Dioxide Level 27.7 Anion Gap 5 Estimat Glomerular Filtration Rate 49 Protein Corrected Calcium 7.9 Total Creatine Kinase 31 Troponin I LESS THAN 0.02 B-Type Natriuretic Peptide 505 Lipase 303 Blood Gas Puncture Site RT RADIAL Blood Gas Patient Temperature 98.6 Blood Gas HCO3 24 Blood Gas Base Excess -1.8 Blood Gas Oxygen Saturation 96 Arterial Blood pH 7.26 Arterial Blood Partial Pressure CO2 57 Arterial Blood Partial Pressure O2 102 Arterial Blood Oxygen Content 3.6 Arterial Blood Carboxyhemoglobin 3.3 Arterial Blood Methemoglobin 0.0 Blood Gas Hemoglobin 2.5 Oxygen Delivery Device NASAL CANNULA Blood Gas Liter Flow 2.5 Lactic Acid Level 2.6 Test 09/15/17 15:23 Hemoglobin 8.0 Lactic Acid Level 1.1 Date/Time Source Procedure Growth Status 09/15/17 08:55 Blood Peripheral Aerobic Blood Culture Pending Received 09/15/17 08:55 Blood Peripheral Anaerobic Blood Culture Pending Received 09/15/17 09:21 Nasal Aspirate Influenza Types A,B Antigen (ANNA) - Final NEGATIVE FOR FLU A AND B ANTIGEN.... Complete Result Diagram: 09/15/17 1523 09/15/17 0930 Imaging Last Impressions Chest CT 09/15/17 0949 Signed Impressions: Service Date/Time: August 11:05 - CONCLUSION: 1. No focal or acute intrathoracic disease. 2. Elevation of left hemidiaphragm. Jeremias Worthy MD Abdomen/Pelvis CT 09/15/17 0949 Signed Impressions: Service Date/Time: August 11:05 - CONCLUSION: 1. There is a large left adnexal/pelvic complex mass measuring 11 cm. There is a diffusely abnormal enlarged uterus with abnormal cystic changes in the lower uterine segment. These findings suggest CREATIVE STRATEGIST neoplastic disease. 2. Gallstone in the gallbladder with no biliary tract obstruction. 3. Scattered diverticulosis of the descending and sigmoid colon without inflammatory changes. Jeremias Worthy MD Chest X-Ray 09/15/17 0850 Signed Impressions: Service Date/Time: August 09:36 - CONCLUSION: No acute disease. No significant change has occurred. Jeremias Worthy MD Pelvis Ultrasound 09/15/17 0000 Signed Impressions: Service Date/Time: August 12:22 - CONCLUSION: Large complex cystic lesions in the midline measuring 12.7 x 10.4 x 10.8 cm and within the left adnexal region measuring 14.3 x 10.0 x 8.8 cm raising the possibility of ovarian neoplasm until proven otherwise. Nilesh Salas MD Caprini VTE Risk Assessment Caprini VTE Risk Assessment: Mod/High Risk (score >= 2) Caprini Risk Assessment Model Point Value = 1 Point Value = 2 Point Value = 3 Point Value = 5 Age 41-60 Minor surgery BMI > 25 kg/m2 Swollen legs Varicose veins or History of unexplained or recurrent spontaneous Oral contraceptives or hormone replacement Sepsis (< 1 month) Serious lung disease, including pneumonia (< 1 month) Abnormal pulmonary function Acute myocardial infarction Congestive heart failure (< 1 month) History of inflammatory bowel disease Medical patient at bed rest Age 61-74 Arthroscopic surgery Major open surgery (> 45 min) Laparoscopic surgery (> 45 min) Malignancy Confined to bed (> 72 hours) Immobilizing plaster cast Central venous access Age >= 75 History of VTE Family history of VTE Factor V Leiden Prothrombin [id number] Lupus anticoagulant Anticardiolipin antibodies Elevated serum homocysteine Heparin-induced thrombocytopenia Other congenital or acquired thrombophilia Stroke (< 1 month) Elective arthroplasty Hip, pelvis, or leg fracture Acute spinal cord injury (< 1 month) Prophylaxis Regimen Total Risk Factor Score Risk Level Prophylaxis Regimen 0-1 Low Early ambulation 2 Moderate Order ONE of the following: *Sequential Compression Device (SCD) *Heparin 5000 units SQ BID 3-4 Higher Order ONE of the following medications: *Heparin 5000 units SQ TID *Enoxaparin/Lovenox 40 mg SQ daily (WT < 150 kg, CrCl > 30 mL/min) *Enoxaparin/Lovenox 30 mg SQ daily (WT < 150 kg, CrCl > 10-29 mL/min) *Enoxaparin/Lovenox 30 mg SQ BID (WT < 150 kg, CrCl > 30 mL/min) AND/OR *Sequential Compression Device (SCD) 5 or more Highest Order ONE of the following medications: *Heparin 5000 units SQ TID (Preferred with Epidurals) *Enoxaparin/Lovenox 40 mg SQ daily (WT < 150 kg, CrCl > 30 mL/min) *Enoxaparin/Lovenox 30 mg SQ daily (WT < 150 kg, CrCl > 10-29 mL/min) *Enoxaparin/Lovenox 30 mg SQ BID (WT < 150 kg, CrCl > 30 mL/min) AND *Sequential Compression Device (SCD) Assessment and Plan Assessment and Plan Assessment: 77yF with severe life-threatening anemia, new pelvic mass. Certainly her lactic acidosis and her hypoxia is most likely secondary to her severe anemia. Her stool guiac is negative, suggesting this is not an intestinal loss of hemoglobin. much more likely to be secondary to this large mass which is highly concerning for malignancy. Will trend h&h q6h. consult gynecologic oncology and admit to the floor close monitoring. Transfuse to keep hgb > 7. will give 1 dose of lasix since JVD appears to be worse than on admission and given age and comorbidities, very easy to become volume overloaded. Active problems: Severe life-threatening anemia Large pelvic mass Lactic Acidosis- secondary to severe anemia Acute hypoxemia- secondary to anemia COPD Plan: - send hemolysis labs - consult hematology - consult gynecologic oncology - lactic acidosis has improved, and most likely secondary to severe anemia - hypoxia is improving, also likely secondary to anemia - lasix 20mg iv x 1 - SCDs, avoid pharmacologic dvt prophylaxis until active hemorrhage ruled out. - admit to floor. - consult hospitalist services. I certify that inpatient services are needed: patient has severe life- threatening anemia and multiple comorbidities, as well as new pelvic mass that by radiology may be pressing on bladder outlet requiring soni catheter. She is expected to spend greater than 2 midnights inpatient. Bud Rogers MD Sep 15, 2017 18:44
[2017-09-15] MEDS ORDERED: BISACODYL 10 MG SUPP RECTAL PRN (18:45)
[2017-09-15] MEDS ORDERED: LACTULOSE SYRUP 20 GM/30 ML CUP PO PRN (18:45)
[2017-09-15] MEDS ORDERED: ONDANSETRON HCL 4 MG/2 ML VIAL IVP PRN (18:45)
[2017-09-15] MEDS ORDERED: SODIUM CHLORIDE 0.9% FLUSH 10 ML FLUSH IV FLUSH PRN (18:45)
[2017-09-15] MEDS ORDERED: SENNOSIDES 8.6 MG TAB PO PRN (18:45)
[2017-09-15] MEDS ORDERED: MAGNESIUM HYDROXIDE SUSP 30 ML CUP PO PRN (18:45)
[2017-09-15] MEDS ORDERED: NALOXONE HCL 0.4 MG/ML AMP IV PUSH PRN (18:45)
[2017-09-15] MEDS ORDERED: FUROSEMIDE 20 MG/2 ML VIAL IV PUSH ONE (18:45)
[2017-09-15 20:13] LABS: HEMATOCRIT 22.3 % (35.0-46.0); HEMOGLOBIN 7.4 GM/DL (11.6-15.3)
[2017-09-15 22:34] LABS: RETIC # 61.4 MIL/L (20.0-150.0); RETIC % 2.3 % (0.4-3.0)
[2017-09-15 22:46] LABS: % SATURATION IRON PROFILE 5.3 % (20-50); IRON (FE) 20 MCG/DL (50-170); TOTAL IRON BINDING CAPACITY 381 MCG/DL (250-450)
[2017-09-15] MEDS: DOCUSATE SODIUM 50 MG/SENNA 8.6 MG TAB PO SCH (23:23)
[2017-09-15] MEDS: SODIUM CHLORIDE 0.9% FLUSH 10 ML FLUSH IV FLUSH SCH (23:24)
[2017-09-16] VITALS (12 sets, daily range): BP systolic 132–165; BP diastolic 61–81; PULSE 80–90; RESP 18–20; TEMP 97.4–98.4; O2SAT 92–97
[2017-09-16 03:08] LABS: HEMATOCRIT 22.6 % (35.0-46.0); HEMOGLOBIN 7.5 GM/DL (11.6-15.3); MEAN CELL VOLUME 82.6 FL (80.0-100.0); MEAN CORPUSCULAR HEMOGLOBIN 27.5 PG (27.0-34.0); MEAN CORPUSCULAR HGB CONC 33.3 % (32.0-36.0); MEAN PLATELET VOLUME 8.4 FL (7.0-11.0); PLATELET COUNT 170 TH/MM3 (150-450); RED BLOOD COUNT 2.74 MIL/MM3 (4.00-5.30); RED CELL DISTRIBUTION WIDTH 19.7 % (11.6-17.2); WHITE BLOOD COUNT 7.5 TH/MM3 (4.0-11.0)
[2017-09-16 03:31] LABS: BICARBONATE 29.4 MEQ/L (21.0-32.0); CALCIUM 7.1 MG/DL (8.5-10.1); CREATININE 1.03 MG/DL (0.50-1.00)
[2017-09-16 03:43] LABS: CALCIUM-PROTEIN CORRECTED 7.6 MG/DL (8.5-10.1); TOTAL PROTEIN 6.2 GM/DL (6.4-8.2)
[2017-09-16] MEDS ORDERED: RESP: ALBUTEROL 2.5 MG/IPRATROPIUM 0.5 MG NEB (PRN) NEB (06:30)
[2017-09-16] MEDS: DOCUSATE SODIUM 50 MG/SENNA 8.6 MG TAB PO SCH ×2 (09:00→21:53)
[2017-09-16] MEDS ORDERED: ACETAMINOPHEN/HYDROcodone 325 MG/5 MG TAB PO PRN (09:30)
--- NOTE | 2017-09-16 09:44 | PD.CONS ---
History of Present Illness Service Hematology/Oncology Service. Consult Requested By Critical Care Medicine. Reason for Consult Critical anemia with presenting hemoglobin of 2.7 g/dL and hematocrit of less than 10%. Additionally the patient was found to have cystic masses within the pelvis, concerning for ovarian or uterine malignancy. Primary Care Physician Jaiden Kate MD Diagnoses: (1) Iron deficiency anemia due to chronic blood loss (2) Pelvic mass (3) Deep vein thrombosis (DVT) of tibial vein of left lower extremity History of Present Illness Chief complaint: "I have been falling a lot" Difficulty breathing with minimal exertion and loss of energy for the past several weeks. History of present illness: Ms. Ramesh is a 77 her old female who is originally from [facility], she currently lives at home with her cousin. The patient has no children of her own and tells me she has been single all of her life; she is never . The patient reports having had a history of chronic anemia as she describes it and has been on and off iron supplements for some time. She tells me in the past she has had severe anemia requiring transfusions and in the past underwent a colonoscopy which revealed colonic polyps, she is not sure where the colonoscopy was done but it was done approximately for 5 years ago. The patient presented to this facility after calling EMS from home, she had been falling frequently and it had become increasingly difficult for her to get up. She reports having difficulty breathing and a general lack of energy, she describes these symptoms as having been progressively worse. She tells me she cannot remember when she last felt well enough to feel confident of caring for herself at home but thinks this may have been at least 2 years ago. Upon presentation to this facility her hemoglobin was noted to be 2.7 g/dL and the hematocrit was less than 10%. Imaging studies were performed emergently including CT scans of the chest abdomen pelvis and she was found to have cystic masses in the pelvis which per the radiologist likely arose from the adnexa on the left side, a gynecologic malignancy was a primary differential. The etiology of the bleeding is not known as the patient herself claims she noticed no evidence of overt bleeding. She tells me she had noticed dark stools starting several months ago but had concurrently been on oral iron replacement therapy which was prescribed by her PCP. Additionally the patient was diagnosed in October 2016 with a left posterior tibial vein deep venous thrombosis which was occlusive (report verified on our electronic health record), she was initiated on blood thinners but she is not certain if she was on blood thinners leading up to this hospitalization. She denies complaints of swelling in the left leg but does have swelling in the right leg. The hematology service is been asked to see her for further workup and management of the anemia. The gynecologic oncology service is been asked to see her for further workup and management of the intrapelvic findings on ultrasound of the pelvis and CT scan of the pelvis. Review of Systems Constitutional: COMPLAINS OF: Fatigue, Dizziness, Change in appetite ( decreased appetite), DENIES: Diaphoretic episodes, Fever, Weight gain, Weight loss, Chills, Night Sweats Endocrine: DENIES: Abnorml menstrual pattern, Heat/cold intolerance, Polydipsia , Polyuria, Polyphagia Eyes: COMPLAINS OF: Blurred vision, DENIES: Diplopia, Eye inflammation, Eye pain, Vision loss, Photosensitivity, Double Vision Ears, nose, mouth, throat: DENIES: Tinnitus, Hearing loss, Vertigo, Nasal discharge, Oral lesions, Throat pain, Hoarseness, Ear Pain, Running Nose, Epistaxis, Sinus Pain, Toothache, Odynophagia Respiratory: COMPLAINS OF: Shortness of breath, DENIES: Apneas, Cough, Snoring , Wheezing, Hemoptysis, Sputum production Cardiovascular: COMPLAINS OF: Palpitations, Syncope, Dyspnea on Exertion, Lower Extremity Edema, DENIES: Chest pain, PND, Orthopnea, Claudication Gastrointestinal: COMPLAINS OF: Black stools, DENIES: Abdominal pain, Bloody stools, Constipation, Diarrhea, Nausea, Vomiting, Difficulty Swallowing, Anorexia Genitourinary: DENIES: Abnormal vaginal bleeding, Dysmenorrhea, Dyspareunia, Sexual dysfunction, Urinary frequency, Urinary incontinence, Urgency, Hematuria , Dysuria, Nocturia, Vaginal discharge Musculoskeletal: COMPLAINS OF: Muscle aches, Back pain, DENIES: Joint pain, Stiffness, Joint Swelling, Neck pain Integumentary: DENIES: Abnormal pigmentation, Pruritus, Rash, Nail changes, Breast masses, Breast skin changes, Nipple discharge Hematologic/lymphatic: COMPLAINS OF: Bruising, DENIES: Lymphadenopathy Immunologic/allergic: DENIES: Eczema, Urticaria Neurologic: COMPLAINS OF: Poor Balance, DENIES: Abnormal gait, Headache, Localized weakness, Paresthesias, Seizures, Speech Problems, Tremor Psychiatric: COMPLAINS OF: Anxiety, DENIES: Confusion, Mood changes, Depression , Hallucinations, Agitation, Suicidal Ideation, Homicidal Ideation, Delusions Except as stated in HPI: all other systems reviewed are Neg Past Family Social History Allergies: Coded Allergies: scallops (Unverified Allergy, Mild, CONFUSION, 09/15/17) Past Medical History Chronic anemia Colonic polyps Type 2 diabetes Hypertension She reports history of "mini strokes" COPD Left lower extremity occlusive deep venous thrombosis involving the left popliteal vein. Obesity Hyperlipidemia Anxiety/depression Past Surgical History Colonoscopy Right total knee replacement Throat surgery Tendon surgery on hand Active Ordered Medications Current inpatient medications: Iron sucrose 200 mg IV daily 3 Hydrocodone/acetaminophen 5/325 1 tablet every 12 hours 2 nebs 1 ampule as needed every 4 hours as needed for wheezing Alprazolam 0.5 mg daily at bedtime as needed for anxiety Symbicort 2 puffs inhaled twice a day Paige-Colace 1 tablet twice a day Steady at 10 mg by mouth daily 4 S1 milligram by mouth daily Lasix 20 MG by mouth daily Lactulose 30 mL by mouth daily as needed for constipation Milk of magnesia 30 mL by mouth every 12 hours if her constipation Zofran for more grams IV every 6 hours as needed for nausea and vomiting Pantoprazole 40 MG IV 1 expressed an 80 MG once daily next sertraline 100 mg by mouth twice a day Omeprazole 20 MG by mouth daily. Family History Mother at the age of 72 of congestive heart failure Father at the age of 57 from excessive alcohol consumption No known oncologic diagnoses in the family. 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 Has lived in [place] for about 30 years. She reports smoking up to 2 packs a day for close to 30 years, she quit 15 years ago. She reports being a heavy drinker up until about 15 years ago. Physical Exam Vital Signs Vital Signs Date Time Temp Pulse Resp B/P (MAP) Pulse Ox O2 Delivery O2 Flow Rate FiO2 09/16/17 09:16 97 Nasal Cannula 2.00 09/16/17 08:00 97.9 87 18 161/81 (107) 95 09/16/17 04:00 97.4 87 20 162/81 (108) 92 09/16/17 03:49 85 09/16/17 01:43 95 Nasal Cannula 3.00 09/15/17 23:48 83 09/15/17 23:43 98.6 85 18 159/86 (110) 95 09/15/17 21:05 09/15/17 21:00 99.5 82 18 161/91 (114) 98 09/15/17 19:31 80 20 146/77 (100) 95 Nasal Cannula 2.00 09/15/17 18:28 82 18 156/68 (97) 95 Nasal Cannula 1.00 09/15/17 16:45 80 19 176/75 (108) 95 Nasal Cannula 1.00 09/15/17 15:40 78 19 180/80 (113) 96 Nasal Cannula 1.00 09/15/17 15:33 97 Nasal Cannula 3.00 09/15/17 15:00 Nasal Cannula 3.00 09/15/17 14:31 75 21 186/72 (110) 98 BiPAP 30 09/15/17 14:05 76 21 215/101 95 09/15/17 13:55 22 191/76 94 09/15/17 13:50 72 21 191/76 96 09/15/17 13:50 96 30 09/15/17 13:45 74 21 154/68 95 09/15/17 13:40 74 20 154/88 96 09/15/17 13:30 74 22 132/63 95 09/15/17 13:12 97.0 74 21 127/63 100 09/15/17 12:48 96.8 71 21 137/64 94 09/15/17 12:45 96.8 72 21 137/64 96 09/15/17 11:53 98.2 67 22 118/56 98 09/15/17 11:43 97.8 69 28 128/72 09/15/17 11:27 97.6 70 22 132/63 09/15/17 11:25 22 96 BiPAP 30 09/15/17 11:25 95 30 09/15/17 10:55 63 26 110/75 86 09/15/17 10:48 97.8 64 26 110/52 09/15/17 10:43 97.8 65 26 127/51 09/15/17 10:23 98.0 61 25 121/58 94 09/15/17 10:06 97.7 65 17 103/52 96 09/15/17 10:02 97.7 68 20 98/50 97 Physical Exam GENERAL: Elderly lady, laying in bed, she appears to be distress, speaks in full sentences. Her complexion is very pale. SKIN: Cool and dry, numerous bruises noted on her upper extremities. HEAD: Atraumatic. Normocephalic. No temporal or scalp tenderness. EYES: Conjunctivae are pale sclerae anicteric, EOMI, PERRLA,. ENT: Pale mucous membranes, no ulceration, no masses, tonsillar hypertrophy not noted. NECK: Trachea midline. No JVD or lymphadenopathy. Supple, nontender, no meningeal signs. CARDIOVASCULAR: Regular rate and rhythm with a systolic flow murmur over the aortic and pulmonic areas. RESPIRATORY: Clear to auscultation. Breath sounds equal bilaterally. No wheezes , rales, or rhonchi. GASTROINTESTINAL: Obese abdomen, examination limited by her body habitus, no definite organ enlargement noted, in the inguinal creases she does have what appears to be candidal infection. MUSCULOSKELETAL: Trace pretibial edema on the right side, some erythema noted on that side as well, TKA scar anterior to the right knee. NEUROLOGICAL: Awake and alert. Cranial nerves II through XII intact. Motor and sensory grossly within normal limits. Five out of 5 muscle strength in all muscle groups. Normal speech. Laboratory Laboratory Tests Test 09/15/17 09:45 09/15/17 15:23 09/15/17 19:40 09/15/17 19:55 Lactic Acid Level 2.6 1.1 Hemoglobin 8.0 7.4 Haptoglobin 136 Potassium Level 4.7 Iron Level 20 Total Iron Binding Capacity 381 Percent Iron Saturation 5.3 Lactate Dehydrogenase 257 Hematocrit 22.3 Reticulocyte Count 2.3 Absolute Reticulocyte Count 61.4 Test 09/16/17 02:38 White Blood Count 7.5 Red Blood Count 2.74 Hemoglobin 7.5 Hematocrit 22.6 Mean Corpuscular Volume 82.6 Mean Corpuscular Hemoglobin 27.5 Mean Corpuscular Hemoglobin Concent 33.3 Red Cell Distribution Width 19.7 Platelet Count 170 Mean Platelet Volume 8.4 Blood Urea Nitrogen 14 Creatinine 1.03 Random Glucose 105 Total Protein 6.2 Calcium Level 7.1 Sodium Level 143 Potassium Level 4.4 Chloride Level 109 Carbon Dioxide Level 29.4 Anion Gap 5 Estimat Glomerular Filtration Rate 52 Protein Corrected Calcium 7.6 Date/Time Source Procedure Growth Status 09/15/17 08:55 Blood Peripheral Aerobic Blood Culture Pending Received 09/15/17 08:55 Blood Peripheral Anaerobic Blood Culture Pending Received 09/15/17 09:21 Nasal Aspirate Influenza Types A,B Antigen (ANNA) - Final NEGATIVE FOR FLU A AND B ANTIGEN.... Complete Result Diagram: 09/16/17 0238 09/16/[address] scan of abdomen and pelvis with IV contrast dated 09/15/2017. Conclusion: 1. There is a large adnexal/pelvic complex mass measuring 11 cm. There is diffusely abnormal enlargement of the uterus with abnormal cystic changes in the lower uterine segment. These findings suggest gynecologic neoplastic disease. 2. Gallstones in the gallbladder with no biliary tract obstruction. 3. Scattered diverticulosis of the descending and sigmoid colon without inflammatory changes. Ultrasound of the pelvis dated 09/15/2017: Conclusion: Large complex cystic lesions in the midline measuring 12.7 x 10.4 x 10.8 cm within the left adnexal region. Additional views of 14.3 x 10 x 8.8 cm cystic/ complex mass possibly arising from the ovary. Course Hospital course thus far: Patient was admitted to the hospital and transfused 4 units packed red blood cells. Patient has been a value by gynecologic oncology and a pelvic exam under anesthesia has been planned for early next week. Anemia workup has been initiated. She has been initiated on IV iron replacement therapy. Physical therapy is also underway. Assessment and Plan Assessment and Plan 77 old female with recurrent falls at home, increasing difficulty breathing with minimal exertion and generally low energy levels found to have a hemoglobin of 2.7 g/dL and hematocrit of less than 10%. Serum iron studies consistent with iron deficiency. Imaging studies of the abdomen and pelvis reveal findings consistent with cystic/complex lesions involving the pelvis likely arising from the adnexa/ovaries. She denies noticing overt bleeding and tells me she has previous history of anemia requiring transfusion support. Additional pertinent medical comorbid conditions include history of left lower extremity deep venous thrombosis diagnosed in October 2016, patient is not certain whether she was on anticoagulation at the time of this hospitalization. She does not recall when her last Pap smear was, cannot recall when her last mammogram was and reports having had a colonoscopy about for 5 years ago when she was previously found to be severely anemic. Plan: 1. Severe microcytic anemia: Her peripheral smear was reviewed, findings of severe hypochromasia, polychromasia, microcytosis, cigar-shaped red cells, and lack of dysplastic/dysmorphic findings in the nucleated cell lineage as well as lack of fragmentation of the red cells and lack of evidence of hemolysis is most consistent with chronic iron deficiency anemia. I requested stool sample election for occult blood testing. Serum folic acid and vitamin B12 levels have been ordered, serum protein electrophoresis also ordered. Initiate intravenous iron replacement therapy with iron sucrose 200 mg IV daily 3 doses (she will require more iron replacement). 2. Pelvic masses: Await gynecologic oncology evaluation. 3. Yeast infection in the inguinal creases: Clotrimazole powder will be ordered for application twice daily. 4. History of deep venous thrombosis involving the left lower extremity accompanied by clinical examination findings of right lower extremity edema on today's exam: Obtain ultrasound Doppler studies of the lower extremity to rule out persistent deep venous thrombosis. 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
--- NOTE | 2017-09-16 09:48 | MB ---
cc: Mara Hilario MD,Bud Ly,Víctor Kate,Jaiden Etienne MD DATE: 09/16/2017 REQUESTING PHYSICIAN: Bud Rogers MD REASON FOR CONSULTATION: Cystic pelvic mass, enlarged uterus, possible uterine and cervical mass. REASON FOR ADMISSION: Profound symptomatic anemia (hemoglobin of 2), vertigo, weakness, falling at home, confusion. HISTORY OF PRESENT ILLNESS: This is a 77-year-old female who initially was in no condition to provide history, was confused and lethargic, found on the evaluation also to have a hemoglobin of 2.7, hematocrit of 9.5. She was given IV hydration, transfused several units of blood after which her overall status improved and her mental status cleared. In the process of evaluation, she had imaging which included a CAT scan of the chest which showed no focal abnormality. There is some elevation of the left hemidiaphragm, not otherwise specified. Chest x-ray showed no acute disease. Pelvic ultrasound shows a large complex cystic lesion in the midline measuring 12.7 cm in greatest dimension thought to possibly represent uterus. in the region of the left adnexa a 14.3 cm mass, predominantly cystic is also noted. CAT scan of abdomen and pelvis confirms these findings with the uterus being diffusely enlarged and abnormal in appearance, 14.8 cm in greatest dimension. On review of the films, it appears to me that the lower uterine segment and cervix are quite broad where the normal contour is irregular and the borders are unclear. Radiologist notes some cystic changes in the lower uterine segment. There is also a mass thought to be arising from the left adnexa. 11 cm in greatest dimension, complex with mostly cystic components. There is no free fluid, no adenopathy reported, no omental thickening, no intraperitoneal nodularity. Also noted are gallstones and diverticulosis. Because of the abnormal gynecologic findings on imaging, she is seen now in consultation for further evaluation and recommendations regarding these findings. PAST MEDICAL HISTORY: She is not an excellent historian, but she is able to tell us that she has had previous episodes of profound anemia and falling. She states that it was previously thought to be of gastrointestinal origin. She has had prior colonoscopies. She estimates it has been at least 2-3 years since her last evaluation, but she states that she has had polyps that were removed. She continues to have what sounds like dark, tarry type stools with each bowel movement. She has not noticed any bright red blood per rectum. She does not believe that she has had any gynecologic bleeding. No bleeding, blood tinged discharge or spotting. It has been many, many years since her last pelvic exam and Pap smear. What is known additionally of her medical history is that she carries a diagnosis of hypertension, gastroesophageal reflux, anxiety, depression, diabetes. She is on home oxygen because of her COPD. ALLERGIES: NO MEDICATION ALLERGIES. SEAFOOD ALLERGIES, SPECIFICALLY TO SCALLOPS. PAST SURGICAL HISTORY: Unknown, but on abdominal exam, I do not see any obvious scars to suggest abdominal surgery. She clearly has an incision over the right knee and with questioning confirms that she had a right knee replaced; the time of that is uncertain. 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 FAMILY HISTORY: Noncontributory. SOCIAL HISTORY: She lives with her cousin. Her cousin is also what sounds like somewhat elderly and not in excellent health, but they help to take care of each other and look out for each other. MEDICATIONS: As outlined in the chart. Included on the list of the Xarelto, which clearly can be contributing to her bleeding and her profound anemia. The reason for her being on the Xarelto is unclear in discussion with her, but may need to be reevaluated given her presentation and profound anemia. LABORATORY DATA: Her most recent labs show an H and H of 7.5 and 22.6, white count 7.5, platelets 170,000. INR 1.0. Electrolytes: BUN and creatinine 14 and 1.03, potassium 4.4, corrected calcium low at 7.6, total protein low at 6.2. PHYSICAL EXAMINATION: VITAL SIGNS: Afebrile, pulse 83-87, respirations 18-20, blood pressure 159-162/81-86, O2 saturation greater than or equal to 92% while awake. GENERAL: She is alert and oriented x3. She is more lucid. She asks and answers appropriate questions, seems to understand the pertinent aspects of our discussion and, while she is not an excellent historian, she can provide a little more information about her history. CHEST: Lungs are clear to the apices. She has a mild expiratory wheeze and prolonged expiratory phase. HEART: Rate and rhythm are regular on today's exam. BACK: No CVA tenderness or spinal point tenderness. LYMPHATICS: There is no adenopathy. SKIN: The skin is warm and dry, a bit pale. ABDOMEN: Abdomen is nonacute, nontender, nondistended. There is palpable fullness in the left mid-abdomen and the middle lower abdomen. No rebound or guarding. No obvious ascites. PELVIC EXAM: Deferred until exam under anesthesia. EXTREMITIES: Arthritic changes. She has a knee replacement incision on her right knee. She has 1+ edema, chronic bilaterally, symmetrical. No palpable cords. Neurovascular intact. DISCUSSION: Time is spent in discussion with her reviewing the findings in her case a date. 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 The abnormalities on CAT scan are reviewed and she still does not report any gynecologic bleeding. I explained the concerns about the possibility of abnormality arising from the gynecologic organs. There can be benign changes that present as such on the CAT scan, or they could be malignant changes and whether or not any of this is related to her symptoms are unclear, but further evaluation and information is needed to try to clarify. I suspect the cystic mass has been present for some time. The uterus has probably been enlarged for some time, but we need to clarify the presence or absence of malignancy. Philosophically, she seems in favor of considering treatment if in fact some type of treatment is ultimately recommended, and she is in favor of getting additional information to try to clarify. I have recommended examination under anesthesia, fractional dilation and curettage, cervix biopsy, cystoscopy, proctoscopy and the rationale for each of those steps are discussed and reviewed. She understands it is an information gathering procedure only. It will not treat the problem, but will help us determine the presence or absence of malignancy, determine if any further intervention is warranted. She understands that this procedure will not address the uterine mass itself or the adnexal mass that could be best addressed by laparoscopy or laparotomy, which I do not recommend at this time until additional information is obtained. We will tentatively schedule her procedure this forthcoming Tuesday. That will give her the next couple days to stabilize, recuperate from her recent acute presentation, and if she is cleared from her medical service for this procedure, we will move forward on Tuesday, which has been tentatively scheduled. Discussion ensued. Questions were answered. She expressed good understanding and agrees. ASSESSMENT: 1. Uterine mass/cervical mass/adnexal mass. 2. Profound anemia with uncertain source of bleeding, but historically sounds as though GI bleeding is likely. 3. On Xarelto as a blood thinner as a compounding variable. 4. Extensive discussion PLAN: 1. N.p.o. after midnight Tuesday. 2. Anticipate surgery, exam under anesthesia, cystoscopy, proctoscopy, D and C, cervix biopsies and possibly other biopsies on 09/19/2017. 3. Continue present management, supportive care, correction of fluid, electrolyte status, transfusion for anemia. Thank you for the consultation. We will follow along in her care. MD JEAN PIERRE Vasquez/KARLA , 09:05 AM , 09:47 AM
[2017-09-16] MEDS: BUDESONIDE-FORMOTEROL 160/4.5 MCG INHALER INH SCH ×2 (10:30→22:11)
[2017-09-16] MEDS: CLOTRIMAZOLE 1% CREAM 15 GM TOPICAL SCH ×2 (11:00→22:12)
--- NOTE | 2017-09-16 11:39 | EKG ---
Date Performed: 09/15/2017 Time Performed: 08:51:41 PTAGE: 77 years EKG: Sinus rhythm NONSPECIFIC ST & T-WAVE ABNORMALITY BORDERLINE ECG PREVIOUS TRACING 10/25/16 Since the previous tracing, no significant change noted DOCTOR: Darshan Szymanski Interpretating Date/Time 09/16/2017 11:33:33
[2017-09-16] MEDS: IRON SUCROSE INJ 200 MG in SODIUM CHLORIDE 0.9% INJ 100 ML IV SCH (11:54)
[2017-09-16] MEDS: FOLIC ACID 1 MG TAB PO SCH (12:08)
[2017-09-16] MEDS: FUROSEMIDE 20 MG TAB PO SCH (12:09)
[2017-09-16] MEDS: SODIUM CHLORIDE 0.9% FLUSH 10 ML FLUSH IV FLUSH SCH ×2 (12:09→21:54)
[2017-09-16 14:14] LABS: HEMATOCRIT 23.7 % (35.0-46.0)
[2017-09-16 15:06] LABS: FERRITIN 18 NG/ML (8-252)
[2017-09-16 15:07] LABS: FOLATE GREATER THAN 20.0 NG/ML (3.1-17.5)
--- NOTE | 2017-09-16 15:30 | HHI.PR ---
Subjective Remarks Follow-up anemia. Denies gross bleeding reports of chronic intermittent dizziness leading to falls. Discussed with nursing Objective Vitals Vital Signs Date Time Temp Pulse Resp B/P (MAP) Pulse Ox O2 Delivery O2 Flow Rate FiO2 09/16/17 12:00 98.2 84 19 165/61 (95) 95 09/16/17 09:16 97 Nasal Cannula 2.00 09/16/17 08:00 97.9 87 18 161/81 (107) 95 09/16/17 04:00 97.4 87 20 162/81 (108) 92 09/16/17 03:49 85 09/16/17 01:43 95 Nasal Cannula 3.00 09/15/17 23:48 83 09/15/17 23:43 98.6 85 18 159/86 (110) 95 09/15/17 21:05 09/15/17 21:00 99.5 82 18 161/91 (114) 98 09/15/17 19:31 80 20 146/77 (100) 95 Nasal Cannula 2.00 09/15/17 18:28 82 18 156/68 (97) 95 Nasal Cannula 1.00 09/15/17 16:45 80 19 176/75 (108) 95 Nasal Cannula 1.00 09/15/17 15:40 78 19 180/80 (113) 96 Nasal Cannula 1.00 09/15/17 15:33 97 Nasal Cannula 3.00 I/O 09/15/17 09/15/17 09/15/17 09/16/17 09/16/17 09/16/17 07:00 15:00 23:00 07:00 15:00 23:00 Intake Total 3950 ml 120 ml Output Total 200 ml 2150 ml Balance 3750 ml -2030 ml Intake Oral 120 ml IV Total 2350 ml Packed Cells 1600 ml Output Urine Total 200 ml 2150 ml # Voids 0 # Bowel Movements 0 Result Diagram: 09/16/17 1320 09/16/17 0238 Imaging Last Impressions Chest CT 09/15/17948 Signed Impressions: Service Date/Time: August 11:05 - CONCLUSION: 1. No focal or acute intrathoracic disease. 2. Elevation of left hemidiaphragm. Jeremias Worthy MD Abdomen/Pelvis CT 09/15/17948 Signed Impressions: Service Date/Time: August 11:05 - CONCLUSION: 1. There is a large left adnexal/pelvic complex mass measuring 11 cm. There is a diffusely abnormal enlarged uterus with abnormal cystic changes in the lower uterine segment. These findings suggest DETAIL TECHNICIAN neoplastic disease. 2. Gallstone in the gallbladder with no biliary tract obstruction. 3. Scattered diverticulosis of the descending and sigmoid colon without inflammatory changes. Jeremias Worthy MD Chest X-Ray 09/15/17 0850 Signed Impressions: Service Date/Time: August 09:36 - CONCLUSION: No acute disease. No significant change has occurred. Jeremias Worthy MD Pelvis Ultrasound 09/15/17 0000 Signed Impressions: Service Date/Time: August 12:22 - CONCLUSION: Large complex cystic lesions in the midline measuring 12.7 x 10.4 x 10.8 cm and within the left adnexal region measuring 14.3 x 10.0 x 8.8 cm raising the possibility of ovarian neoplasm until proven otherwise. Nilesh Salas MD Objective Remarks gen: elderly female, sitting in bed, no acute distress. heent: perrl. nomocephalic. atraumatic. sclerae pale. neck: slight JVD a few cm above the clavicle. trachea midline. chest: 1L o2 by nc. unlabored. equal chest rise cv: normal rate, regular rhythm. sinus by tele. abd: soft, nontender, nondistended. palpable mass in the mid-pelvis which is firm. no guarding or rebound. Trace swelling of the lower extremities neuro: Oriented 3. Cranial nerves intact, motor power intact speech normal A/P Problem List: (1) Pelvic mass ICD Code: R19.00 - Intra-abdominal and pelvic swelling, mass and lump, unspecified site Status: Acute Assessment and Plan 7yF with severe life-threatening anemia, new pelvic mass. Severe life-threatening anemia. Guaiac negative 1. Improved after 4 units of packed RBC. She is iron deficient continue IV iron. Hematology follow Large pelvic mass with elevated CA 125. For surgery this coming Tuesday by DETAIL TECHNICIAN Lactic Acidosis- secondary to severe anemia. Resolved Acute hypoxemia- secondary to anemia. Improved COPD. Stable continue nebulization Metabolic encephalopathy. Improved History of DVT of the left lower extremity. Will hold Xarelto because of severe anemia. Will order Doppler Multiple medical conditions of hypertension, GERD, diabetes mellitus, chronic respiratory failure on nasal cannula, anxiety and depression. Continue outpatient medications as appropriate DVT prophylaxis with SCDs, avoid pharmacologic dvt prophylaxis until active hemorrhage ruled out. Matthew Owen MD Sep 16, 2017 15:30
--- NOTE | 2017-09-16 17:34 | RADRPT ---
EXAM DATE/TIME: 09/16/2017 17:44 [facility] COMPARISON: US LEG BILATERAL VENOUS DOPPLER, November 09, 2016, 16:20. INDICATIONS : Bilateral leg swelling. MEDICAL HISTORY : Hypercholesterolemia. Gastroesophageal reflux disease. Chronic obstructive pulmonary disease. Congest cari heart failure. Deep vein thrombosis. Hypertension. Hernia, hiatal. Diabetes. Depression. SURGICAL HISTORY : Total knee replacement, right. Arthroscopy, left knee. Cervical fusion. ENCOUNTER: Subsequent ACUITY: 4 - 6 days PAIN SCORE: 2/10 LOCATION: Bilateral legs. TECHNIQUE: Venous ultrasound of the left and right leg was performed from the inguinal ligament to the proximal calf. Real-time, color Doppler and spectral tracing, compression and augmentation techniques were us ed. FINDINGS: RIGHT LEG: There is normal compressibility of the deep venous system from the inguinal region to the proximal ca lf. No echogenic clot is seen in the lumen of the common femoral, femoral, popliteal, and posterior tibial veins. There is a normal response of the venous system to proximal and distal augmentation an d respiration. LEFT LEG: There is normal compressibility of the deep venous system from the inguinal region to the proximal ca lf. No echogenic clot is seen in the lumen of the common femoral, femoral, popliteal, and posterior tibial veins. There is a normal response of the venous system to proximal and distal augmentation an d respiration. CONCLUSION: Negative exam with no evidence of deep venous thrombosis. Pepe Rodriguez MD on September 16, 2017 at 17:31 Board Certified Radiologist. This report was verified electronically.
[2017-09-16 18:47] LABS: HEMATOCRIT 23.4 % (35.0-46.0); HEMOGLOBIN 7.6 GM/DL (11.6-15.3)
[2017-09-16] MEDS: SERTRALINE HCL 100 MG TAB PO SCH (21:53)
[2017-09-16] MEDS: ALPRAZolam 0.5 MG TAB PO SCH (21:54)
[2017-09-16 22:23] LABS: HEMATOCRIT 23.4 % (35.0-46.0); HEMOGLOBIN 7.8 GM/DL (11.6-15.3)
[2017-09-16 22:25] LABS: ALB/GLOB RATIO (SPE) 1.18 (1.39-2.23)
[2017-09-17] VITALS (29 sets, daily range): BP systolic 142–171; BP diastolic 67–80; PULSE 76–90; RESP 16–18; TEMP 98–98.8; O2SAT 93–99
[2017-09-17 07:05] LABS: HEMATOCRIT 25.8 % (35.0-46.0); HEMOGLOBIN 8.5 GM/DL (11.6-15.3); MEAN CELL VOLUME 84.9 FL (80.0-100.0); MEAN PLATELET VOLUME 7.7 FL (7.0-11.0); PLATELET COUNT 164 TH/MM3 (150-450); RED BLOOD COUNT 3.04 MIL/MM3 (4.00-5.30); RED CELL DISTRIBUTION WIDTH 20.1 % (11.6-17.2); WHITE BLOOD COUNT 8.5 TH/MM3 (4.0-11.0)
[2017-09-17 07:20] LABS: BICARBONATE 31.5 MEQ/L (21.0-32.0); CALCIUM 7.5 MG/DL (8.5-10.1); CREATININE 0.88 MG/DL (0.50-1.00)
[2017-09-17] MEDS: SODIUM CHLORIDE 0.9% FLUSH 10 ML FLUSH IV FLUSH SCH ×2 (09:00→20:30)
[2017-09-17] MEDS: IRON SUCROSE INJ 200 MG in SODIUM CHLORIDE 0.9% INJ 100 ML IV SCH (09:45)
[2017-09-17] MEDS: BUDESONIDE-FORMOTEROL 160/4.5 MCG INHALER INH SCH ×2 (09:45→20:30)
[2017-09-17] MEDS: FOLIC ACID 1 MG TAB PO SCH (09:46)
[2017-09-17] MEDS: DOCUSATE SODIUM 50 MG/SENNA 8.6 MG TAB PO SCH ×2 (09:46→20:31)
[2017-09-17] MEDS: PANTOPRAZOLE SOD 20 MG DELAYED RELEASE TAB PO SCH (09:46)
[2017-09-17] MEDS: EZETIMIBE 10 MG TAB PO SCH (09:46)
[2017-09-17] MEDS: PRAVASTATIN SOD 80 MG TAB PO SCH (09:46)
[2017-09-17] MEDS: SERTRALINE HCL 100 MG TAB PO SCH ×2 (09:46→20:31)
[2017-09-17] MEDS: CLOTRIMAZOLE 1% CREAM 15 GM TOPICAL SCH ×2 (09:48→20:30)
--- NOTE | 2017-09-17 12:10 | HHI.PR ---
Subjective Remarks Patient reports he is feeling better today. Pain is controlled. Objective Vitals Vital Signs Date Time Temp Pulse Resp B/P (MAP) Pulse Ox O2 Delivery O2 Flow Rate FiO2 09/17/17 11:15 98 2.00 09/17/17 10:00 84 09/17/17 08:00 98.0 88 18 144/77 (99) 97 09/17/17 08:00 85 09/17/17 05:00 80 09/17/17 04:25 98.1 82 17 142/70 (94) 98 09/17/17 04:00 90 09/17/17 04:00 86 09/17/17 03:00 84 09/17/17 02:00 82 09/17/17 01:00 82 09/17/17 00:30 98.1 88 16 160/73 (102) 93 09/17/17 00:00 85 09/17/17 00:00 84 09/16/17 23:00 86 09/16/17 22:00 82 09/16/17 21:11 Nasal Cannula 2.00 09/16/17 21:00 80 09/16/17 20:00 84 09/16/17 17:15 97.8 80 20 155/72 (99) 94 09/16/17 16:05 81 I/O 09/16/17 09/16/17 09/16/17 09/17/17 09/17/17 09/17/17 07:00 15:00 23:00 07:00 15:00 23:00 Intake Total 120 ml 240 ml 480 ml 110 ml Output Total 2150 ml 1500 ml 800 ml Balance -2030 ml -1260 ml -320 ml 110 ml Intake Oral 120 ml 240 ml 480 ml IV Total 110 ml Output Urine Total 2150 ml 1500 ml 800 ml # Bowel Movements 0 Result Diagram: 09/17/17 0520 09/17/17 0520 Imaging Last Impressions Lower Extremity Ultrasound 09/16/17 0000 Signed Impressions: Service Date/Time: Saturday, September 16, 2017 17:44 - CONCLUSION: Negative exam with no evidence of deep venous thrombosis. Pepe Rodriguez MD Chest CT 09/15/17 0949 Signed Impressions: Service Date/Time: August 11:05 - CONCLUSION: 1. No focal or acute intrathoracic disease. 2. Elevation of left hemidiaphragm. Jeremias Worthy MD Abdomen/Pelvis CT 09/15/17 0949 Signed Impressions: Service Date/Time: August 11:05 - CONCLUSION: 1. There is a large left adnexal/pelvic complex mass measuring 11 cm. There is a diffusely abnormal enlarged uterus with abnormal cystic changes in the lower uterine segment. These findings suggest VENEER SUPERVISOR neoplastic disease. 2. Gallstone in the gallbladder with no biliary tract obstruction. 3. Scattered diverticulosis of the descending and sigmoid colon without inflammatory changes. Jeremias Worthy MD Chest X-Ray 09/15/17 0850 Signed Impressions: Service Date/Time: August 09:36 - CONCLUSION: No acute disease. No significant change has occurred. Jeremias Worthy MD Pelvis Ultrasound 09/15/17 0000 Signed Impressions: Service Date/Time: August 12:22 - CONCLUSION: Large complex cystic lesions in the midline measuring 12.7 x 10.4 x 10.8 cm and within the left adnexal region measuring 14.3 x 10.0 x 8.8 cm raising the possibility of ovarian neoplasm until proven otherwise. Nilesh Salas MD Objective Remarks GENERAL: This is a well-nourished, well-developed patient, in no apparent distress. CARDIOVASCULAR: Normal rate and regular rhythm without murmurs, gallops, or rubs. RESPIRATORY: Good respiratory efforts. Breath sounds equal and clear to auscultation bilaterally. GASTROINTESTINAL: Firm mass palpated in the mid suprapubic region. Normal active bowel sounds MUSCULOSKELETAL: Extremities without cyanosis, or edema. NEURO: Alert & Oriented x4 to person, place, time, situation. Moves all ext x4 PSYCH: Appropriate mood and affect. A/P Problem List: (1) Pelvic mass ICD Code: R19.00 - Intra-abdominal and pelvic swelling, mass and lump, unspecified site Status: Acute Assessment and Plan 77yF with severe life-threatening anemia, new pelvic mass. Severe life-threatening anemia. Guaiac negative 1. Improved after 4 units of packed RBC. She is iron deficient continue IV iron. Hematology following Large pelvic mass with elevated CA 125. For OR this coming Tuesday by VENEER SUPERVISOR -H&H stable today. Continue to monitor closely Lactic Acidosis- secondary to severe anemia. Resolved Acute hypoxemia- secondary to anemia. Improved. Continue supplemental oxygen COPD. Stable continue nebulization Metabolic encephalopathy. Resolved History of DVT of the left lower extremity. Continue to hold Xarelto because of severe anemia. Lower extremity Doppler negative Multiple medical conditions of hypertension, GERD, diabetes mellitus, chronic respiratory failure on nasal cannula, anxiety and depression. Continue outpatient medications DVT prophylaxis with SCDs, avoid pharmacologic dvt prophylaxis until active anemia stable. Pedro Cross MD Sep 17, 2017 12:10
[2017-09-17] MEDS: FUROSEMIDE 20 MG TAB PO SCH (12:19)
[2017-09-17] MEDS: ALPRAZolam 0.5 MG TAB PO SCH (20:31)
[2017-09-18] VITALS (31 sets, daily range): BP systolic 131–152; BP diastolic 60–86; PULSE 78–94; RESP 16–20; TEMP 98–99.1; O2SAT 95–100
[2017-09-18 04:19] LABS: HEMATOCRIT 25.1 % (35.0-46.0); HEMOGLOBIN 8.1 GM/DL (11.6-15.3); MEAN CELL VOLUME 85.5 FL (80.0-100.0); MEAN CORPUSCULAR HEMOGLOBIN 27.7 PG (27.0-34.0); MEAN CORPUSCULAR HGB CONC 32.4 % (32.0-36.0); MEAN PLATELET VOLUME 7.5 FL (7.0-11.0); PLATELET COUNT 162 TH/MM3 (150-450); RED BLOOD COUNT 2.93 MIL/MM3 (4.00-5.30); RED CELL DISTRIBUTION WIDTH 21.1 % (11.6-17.2); WHITE BLOOD COUNT 8.2 TH/MM3 (4.0-11.0)
[2017-09-18 04:41] LABS: BICARBONATE 33.5 MEQ/L (21.0-32.0); CALCIUM 7.5 MG/DL (8.5-10.1); CREATININE 0.76 MG/DL (0.50-1.00)
[2017-09-18] MEDS: CLOTRIMAZOLE 1% CREAM 15 GM TOPICAL SCH ×2 (08:32→21:13)
[2017-09-18] MEDS: BUDESONIDE-FORMOTEROL 160/4.5 MCG INHALER INH SCH ×2 (08:32→21:13)
[2017-09-18] MEDS: EZETIMIBE 10 MG TAB PO SCH (08:33)
[2017-09-18] MEDS: FOLIC ACID 1 MG TAB PO SCH (08:33)
[2017-09-18] MEDS: PRAVASTATIN SOD 80 MG TAB PO SCH (08:33)
[2017-09-18] MEDS: PANTOPRAZOLE SOD 20 MG DELAYED RELEASE TAB PO SCH (08:33)
[2017-09-18] MEDS: SERTRALINE HCL 100 MG TAB PO SCH ×2 (08:33→21:13)
[2017-09-18] MEDS: DOCUSATE SODIUM 50 MG/SENNA 8.6 MG TAB PO SCH ×2 (08:33→21:13)
[2017-09-18] MEDS: SODIUM CHLORIDE 0.9% FLUSH 10 ML FLUSH IV FLUSH SCH ×2 (08:35→21:13)
[2017-09-18] MEDS: IRON SUCROSE INJ 200 MG in SODIUM CHLORIDE 0.9% INJ 100 ML IV SCH (12:43)
[2017-09-18] MEDS: FUROSEMIDE 20 MG TAB PO SCH (12:43)
[2017-09-18] MEDS: ALPRAZolam 0.5 MG TAB PO SCH (21:13)
[2017-09-19] VITALS (19 sets, daily range): BP systolic 106–182; BP diastolic 63–96; PULSE 63–114; RESP 13–22; TEMP 97.6–99.5; O2SAT 94–100
[2017-09-19 05:12] LABS: HEMATOCRIT 26.5 % (35.0-46.0); HEMOGLOBIN 8.4 GM/DL (11.6-15.3); MEAN CELL VOLUME 86.1 FL (80.0-100.0); MEAN CORPUSCULAR HEMOGLOBIN 27.1 PG (27.0-34.0); MEAN CORPUSCULAR HGB CONC 31.5 % (32.0-36.0); MEAN PLATELET VOLUME 7.4 FL (7.0-11.0); PLATELET COUNT 189 TH/MM3 (150-450); RED BLOOD COUNT 3.08 MIL/MM3 (4.00-5.30); RED CELL DISTRIBUTION WIDTH 20.7 % (11.6-17.2); WHITE BLOOD COUNT 9.3 TH/MM3 (4.0-11.0)
[2017-09-19 05:36] LABS: BICARBONATE 34.6 MEQ/L (21.0-32.0); CREATININE 0.78 MG/DL (0.50-1.00)
[2017-09-19] MEDS ORDERED: LACTATED RINGER'S 1000 ML IV PRN (06:45)
[2017-09-19] MEDS ORDERED: METOPROLOL TARTRATE 25 MG TAB PO PRN (06:45)
[2017-09-19] MEDS ORDERED: CHLORHEXIDINE GLUCONATE 2 % 1 PACK (2 CLOTHS) TOPICAL PRN (06:45)
[2017-09-19] MEDS ORDERED: SODIUM CHLORID 0.9% 500 ML IV PRN (06:45)
[2017-09-19] MEDS ORDERED: POVIDONE IODINE 5% (ANTISEPSIS KIT) 4 APPLICATIONS EACH NARE PRN (06:45)
[2017-09-19] MEDS: CLOTRIMAZOLE 1% CREAM 15 GM TOPICAL SCH ×2 (08:20→21:00)
[2017-09-19] MEDS: PRAVASTATIN SOD 80 MG TAB PO SCH (08:20)
[2017-09-19] MEDS: FOLIC ACID 1 MG TAB PO SCH (08:20)
[2017-09-19] MEDS: EZETIMIBE 10 MG TAB PO SCH (08:21)
[2017-09-19] MEDS: SERTRALINE HCL 100 MG TAB PO SCH ×2 (08:21→21:00)
[2017-09-19] MEDS: PANTOPRAZOLE SOD 20 MG DELAYED RELEASE TAB PO SCH (08:21)
[2017-09-19] MEDS: SODIUM CHLORIDE 0.9% FLUSH 10 ML FLUSH IV FLUSH SCH (08:21)
[2017-09-19] MEDS: DOCUSATE SODIUM 50 MG/SENNA 8.6 MG TAB PO SCH ×2 (08:21→21:00)
[2017-09-19] MEDS: BUDESONIDE-FORMOTEROL 160/4.5 MCG INHALER INH SCH ×2 (08:26→21:00)
--- NOTE | 2017-09-19 08:39 | HHI.PR ---
Subjective Remarks NOTE FOR 09/18/17 Patient reports she is feeling okay. She denies any vaginal bleeding. Objective Vitals Vital Signs Date Time Temp Pulse Resp B/P (MAP) Pulse Ox O2 Delivery O2 Flow Rate FiO2 09/19/17 07:00 86 09/19/17 06:00 90 09/19/17 05:04 98.0 91 18 158/73 (101) 96 09/19/17 05:00 90 09/19/17 04:06 86 09/19/17 03:00 94 09/19/17 02:00 84 09/19/17 01:00 84 09/18/17 23:51 86 09/18/17 23:13 98.5 83 16 142/86 (104) 100 09/18/17 23:00 82 09/18/17 22:00 82 09/18/17 21:09 98.5 87 16 152/75 (100) 100 09/18/17 21:00 84 09/18/17 20:33 Nasal Cannula 3.00 09/18/17 20:06 86 09/18/17 19:00 94 09/18/17 18:00 86 09/18/17 17:00 84 09/18/17 16:00 98.2 83 16 142/60 (87) 100 09/18/17 16:00 84 09/18/17 15:00 88 09/18/17 14:00 86 09/18/17 13:00 84 09/18/17 12:35 99.1 82 18 131/62 (85) 97 09/18/17 12:00 86 09/18/17 11:00 82 09/18/17 10:00 82 09/18/17 09:00 80 I/O 09/18/17 09/18/17 09/18/17 09/19/17 09/19/17 09/19/17 07:00 15:00 23:00 07:00 15:00 23:00 Intake Total 240 ml 110 ml 1200 ml 240 ml Output Total 400 ml 450 ml 200 ml Balance -160 ml 110 ml 750 ml 40 ml Intake Oral 240 ml 1200 ml 240 ml IV Total 110 ml Output Urine Total 400 ml 450 ml 200 ml # Voids 2 1 # Bowel Movements 1 Result Diagram: 09/19/17 0440 09/19/17439 Objective Remarks GENERAL: This is a well-nourished, well-developed patient, in no apparent distress. CARDIOVASCULAR: Normal rate and regular rhythm without murmurs, gallops, or rubs. RESPIRATORY: Good respiratory efforts. Breath sounds equal and clear to auscultation bilaterally. GASTROINTESTINAL: Firm mass palpated in the mid suprapubic region. Normal active bowel sounds MUSCULOSKELETAL: Extremities without cyanosis, or edema. NEURO: Alert & Oriented x4 to person, place, time, situation. Moves all ext x4 PSYCH: Appropriate mood and affect. A/P Problem List: (1) Pelvic mass ICD Code: R19.00 - Intra-abdominal and pelvic swelling, mass and lump, unspecified site Status: Acute Assessment and Plan 77yF with severe life-threatening anemia, new pelvic mass. Severe life-threatening anemia. Guaiac negative 1. Improved after 4 units of packed RBC. She is iron deficient continue IV iron. Hematology following Large pelvic mass with elevated CA 125. For OR tomorrow morning by [employer] SCIENCES DEPARTMENT CHAIR -H&H stable today. Continue to monitor Lactic Acidosis- secondary to severe anemia. Resolved Acute hypoxemia- secondary to anemia. Improved. Continue supplemental oxygen COPD. Stable continue nebulization Metabolic encephalopathy. Resolved History of DVT of the left lower extremity. Continue to hold Xarelto because of severe anemia. Lower extremity Doppler negative Multiple medical conditions of hypertension, GERD, diabetes mellitus, chronic respiratory failure on nasal cannula, anxiety and depression. Continue outpatient medications DVT prophylaxis with SCDs, avoid pharmacologic dvt prophylaxis until active anemia stable. Pedro Cross MD Sep 19, 2017 08:39
[2017-09-19] MEDS ORDERED: ACETAMINOPHEN 1000 MG/100 ML 100 ML IV ONE (09:12)
[2017-09-19] MEDS ORDERED: LIDOCAINE 1%/EPINEPHrine 1:100,000 SOLN 30 ML VIAL ONE (09:24)
[2017-09-19] MEDS ORDERED: FERRIC SUBSULFATE 8 ML TOP SOLN TOPICAL ONE (11:00)
[2017-09-19] MEDS ORDERED: DO NOT ADM ANY ANTICOAGULANT DRUGS PRN (11:29)
[2017-09-19] MEDS ORDERED: LIDOCAINE HCL 1% PF 5 ML SYRINGE OTHER ONE (12:00)
[2017-09-19] MEDS ORDERED: ONDANSETRON HCL 4 MG/2 ML VIAL IV ONE (12:00)
[2017-09-19] MEDS ORDERED: DEXAMETHASONE SOD PHOS 4 MG/ML VIAL IV ONE (12:00)
[2017-09-19] MEDS ORDERED: PROPOFOL 200 MG/20 ML AMP IV ONE (12:00)
[2017-09-19] MEDS: FUROSEMIDE 20 MG TAB PO SCH (12:00)
[2017-09-19] MEDS ORDERED: SUCCINYLCHOLINE CHLORIDE 100 MG/5 ML SYRINGE IV PUSH ONE (12:00)
--- NOTE | 2017-09-19 13:27 | HHI.PR ---
Objective Vitals Vital Signs Date Time Temp Pulse Resp B/P (MAP) Pulse Ox O2 Delivery O2 Flow Rate FiO2 09/19/17 11:30 70 09/19/17 11:29 97.1 73 14 123/57 (79) 100 Mechanical Ventilator 70 09/19/17 09:41 98.0 83 20 149/66 (93) 95 09/19/17 08:58 97.7 93 20 136/69 (91) 100 09/19/17 08:53 97.6 114 22 136/75 (95) 94 09/19/17 08:52 97.7 93 20 136/69 (91) 100 09/19/17 08:43 98.0 83 20 174/74 (107) 95 09/19/17 07:00 86 09/19/17 06:00 90 09/19/17 05:04 98.0 91 18 158/73 (101) 96 09/19/17 05:00 90 09/19/17 04:06 86 09/19/17 03:00 94 09/19/17 02:00 84 09/19/17 01:00 84 09/18/17 23:51 86 09/18/17 23:13 98.5 83 16 142/86 (104) 100 09/18/17 23:00 82 09/18/17 22:00 82 09/18/17 21:09 98.5 87 16 152/75 (100) 100 09/18/17 21:00 84 09/18/17 20:33 Nasal Cannula 3.00 09/18/17 20:06 86 09/18/17 19:00 94 09/18/17 18:00 86 09/18/17 17:00 84 09/18/17 16:00 98.2 83 16 142/60 (87) 100 09/18/17 16:00 84 09/18/17 15:00 88 09/18/17 14:00 86 I/O 09/18/17 09/18/17 09/18/17 09/19/17 09/19/17 09/19/17 07:00 15:00 23:00 07:00 15:00 23:00 Intake Total 240 ml 110 ml 1200 ml 240 ml 700 ml Output Total 400 ml 450 ml 200 ml 20 ml Balance -160 ml 110 ml 750 ml 40 ml 680 ml Intake Oral 240 ml 1200 ml 240 ml IV Total 110 ml 700 ml Output Urine Total 400 ml 450 ml 200 ml Estimated Blood Loss 20 ml # Voids 2 1 # Bowel Movements 1 Result Diagram: 09/19/170 09/19/17439 Objective Remarks GENERAL: This is a well-nourished, well-developed patient, in no apparent distress. CARDIOVASCULAR: Normal rate and regular rhythm without murmurs, gallops, or rubs. RESPIRATORY: Good respiratory efforts. Breath sounds equal and clear to auscultation bilaterally. GASTROINTESTINAL: Firm mass palpated in the mid suprapubic region. Normal active bowel sounds MUSCULOSKELETAL: Extremities without cyanosis, or edema. NEURO: Alert & Oriented x4 to person, place, time, situation. Moves all ext x4 PSYCH: Appropriate mood and affect. A/P Problem List: (1) Pelvic mass ICD Code: R19.00 - Intra-abdominal and pelvic swelling, mass and lump, unspecified site Status: Acute Assessment and Plan 77yF with severe life-threatening anemia, new pelvic mass. Severe life-threatening anemia. Guaiac negative 1. Improved after 4 units of packed RBC. She is iron deficient continue IV iron. Hematology following Large pelvic mass with elevated CA 125. For OR this coming Tuesday by MOVIE STAR -H&H stable today. Continue to monitor closely Lactic Acidosis- secondary to severe anemia. Resolved Acute hypoxemia- secondary to anemia. Improved. Continue supplemental oxygen COPD. Stable continue nebulization Metabolic encephalopathy. Resolved History of DVT of the left lower extremity. Continue to hold Xarelto because of severe anemia. Lower extremity Doppler negative Multiple medical conditions of hypertension, GERD, diabetes mellitus, chronic respiratory failure on nasal cannula, anxiety and depression. Continue outpatient medications DVT prophylaxis with SCDs, avoid pharmacologic dvt prophylaxis until active anemia stable. Pedro Cross MD Sep 19, 2017 13:26
--- NOTE | 2017-09-19 15:53 | PD.CONS ---
HPI History of Present Illness This is a 77 year old morbidly obese female admitted to the hospital on with a severe symptomatic hemoglobin accompanied with severe fatigue and frequent falls. According to the record patient was transfused with 3 units emergency, and has received a total of 4 units since her admission. She is in the PACU at this time status post surgical procedure, hemoglobin now 8.4 preop. Patient is currently being managed with mechanical ventilation and when stable will be transferred to the intensive care setting. Patient does arouse to verbal stimuli, can shake her head yes or no to simple questions. Shakes her head no to no abdominal pain, no known dark tarry stools before this hospital admission, no fever. Patient shakes her head yes to previous colonoscopy timing unknown nods to a long time ago, nods yes to extreme fatigue and tiredness. Patient nods no to previous endoscopy. (Fatou Oh) PFSH Past Medical History According to the record hypertension GERD Anxiety Depression Diabetes COPD with home O2 Obesity DVT left leg, she was on Xarelto until entering the hospital. Has been held since admission Past Surgical History Colonoscopy but unknown date patient nods yes to all long time ago Denies any endoscopy (Fatou Oh) Coded Allergies: scallops (Unverified Allergy, Mild, CONFUSION, 09/15/17) Medications Administered Medications Medications (Trade) Dose Ordered Sig/Enio Route PRN Reason Start Time Stop Time Status Last Admin Dose Admin Sodium Chloride (NS Flush) 2 ml BID IV FLUSH 09/15/17 21:00 09/19/17 08:21 Senna/Docusate Sodium (Paige-Colace) 1 tab BID PO 09/15/17 21:00 09/18/17 21:13 Folic Acid (Folate) 1 mg DAILY PO 09/16/17 10:00 09/19/17 08:20 Alprazolam (Xanax) 0.5 mg HS PO 09/16/17 21:00 09/18/17 21:13 Budesonide/ Formoterol Fumarate (Symbicort 160-4.5 Mcg Inh) 2 puff BID INH 09/16/17 10:30 09/18/17 21:13 EZETIMIBE (Zetia) 10 mg DAILY PO 09/17/17 09:00 09/19/17 08:21 Furosemide (Lasix) 20 mg DAILY@1200 PO 09/16/17 12:00 09/18/17 12:43 Pravastatin Sodium (Pravachol) 80 mg DAILY PO 09/17/17 09:00 09/19/17 08:20 Sertraline HCl (Zoloft) 100 mg BID PO 09/16/17 21:00 09/19/17 08:21 Pantoprazole Sodium (Protonix) 20 mg DAILY PO 09/17/17 09:00 09/19/17 08:21 Clotrimazole (Lotrimin 1% Cream) 1 applic Q12HR TOPICAL 09/16/17 11:00 09/19/17 08:20 Lactated Ringer's 1,000 ml @ 30 mls/hr Q24H PRN IV SEE LABEL COMMENTS 09/19/17 06:45 09/22/17 06:44 09/19/17 08:22 Family History Unknown Social History [place] to the record patient lives with her niece who is also 76 years old (Fatou Oh) Review of Systems Constitutional: COMPLAINS OF: Fatigue (Fatou Oh) GI Exam Vitals I&O Vital Signs Date Time Temp Pulse Resp B/P (MAP) Pulse Ox O2 Delivery O2 Flow Rate FiO2 09/19/17 14:30 65 10 134/64 (87) 98 Mechanical Ventilator 70 09/19/17 14:00 65 16 134/63 (86) 98 Mechanical Ventilator 70 09/19/17 13:30 66 16 148/72 (97) 98 Mechanical Ventilator 70 09/19/17 13:15 70 09/19/17 13:00 61 16 138/69 (92) 100 Mechanical Ventilator 70 09/19/17 12:45 60 16 130/54 (79) 100 Mechanical Ventilator 70 09/19/17 12:30 63 16 130/54 (79) 100 Mechanical Ventilator 70 09/19/17 12:15 63 16 127/72 (90) 100 Mechanical Ventilator 70 09/19/17 12:00 63 16 115/66 (82) 100 Mechanical Ventilator 70 09/19/17 11:45 66 16 133/56 (81) 100 Mechanical Ventilator 70 09/19/17 11:30 70 09/19/17 11:29 97.1 73 14 123/57 (79) 100 Mechanical Ventilator 70 09/19/17 09:41 98.0 83 20 149/66 (93) 95 09/19/17 08:58 97.7 93 20 136/69 (91) 100 09/19/17 08:53 97.6 114 22 136/75 (95) 94 09/19/17 08:52 97.7 93 20 136/69 (91) 100 09/19/17 08:43 98.0 83 20 174/74 (107) 95 09/19/17 07:00 86 09/19/17 06:00 90 09/19/17 05:04 98.0 91 18 158/73 (101) 96 09/19/17 05:00 90 09/19/17 04:06 86 09/19/17 03:00 94 09/19/17 02:00 84 09/19/17 01:00 84 09/18/17 23:51 86 09/18/17 23:13 98.5 83 16 142/86 (104) 100 09/18/17 23:00 82 09/18/17 22:00 82 09/18/17 21:09 98.5 87 16 152/75 (100) 100 09/18/17 21:00 84 09/18/17 20:33 Nasal Cannula 3.00 09/18/17 20:06 86 09/18/17 19:00 94 09/18/17 18:00 86 09/18/17 17:00 84 09/18/17 16:00 98.2 83 16 142/60 (87) 100 09/18/17 16:00 84 I/O 09/18/17 09/18/17 09/18/17 09/19/17 09/19/17 09/19/17 07:00 15:00 23:00 07:00 15:00 23:00 Intake Total 240 ml 110 ml 1200 ml 240 ml 700 ml Output Total 400 ml 450 ml 200 ml 20 ml Balance -160 ml 110 ml 750 ml 40 ml 680 ml Intake Oral 240 ml 1200 ml 240 ml IV Total 110 ml 700 ml Output Urine Total 400 ml 450 ml 200 ml Estimated Blood Loss 20 ml # Voids 2 1 # Bowel Movements 1 Imaging Last Impressions Lower Extremity Ultrasound 09/16/17 0000 Signed Impressions: Service Date/Time: Saturday, September 16, 2017 17:44 - CONCLUSION: Negative exam with no evidence of deep venous thrombosis. Pepe Rodriguez MD Chest CT 09/15/17 0949 Signed Impressions: Service Date/Time: August 11:05 - CONCLUSION: 1. No focal or acute intrathoracic disease. 2. Elevation of left hemidiaphragm. Jeremias Worthy MD Abdomen/Pelvis CT 09/15/17 0949 Signed Impressions: Service Date/Time: August 11:05 - CONCLUSION: 1. There is a large left adnexal/pelvic complex mass measuring 11 cm. There is a diffusely abnormal enlarged uterus with abnormal cystic changes in the lower uterine segment. 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 2. Gallstone in the gallbladder with no biliary tract obstruction. 3. Scattered diverticulosis of the descending and sigmoid colon without inflammatory changes. Jeremias Worthy MD Chest X-Ray 09/15/17 0850 Signed Impressions: Service Date/Time: August 09:36 - CONCLUSION: No acute disease. No significant change has occurred. Jeremias Worthy MD Pelvis Ultrasound 09/15/17 0000 Signed Impressions: Service Date/Time: August 12:22 - CONCLUSION: Large complex cystic lesions in the midline measuring 12.7 x 10.4 x 10.8 cm and within the left adnexal region measuring 14.3 x 10.0 x 8.8 cm raising the possibility of ovarian neoplasm until proven otherwise. Nilesh Salas MD Laboratory Test 09/19/17 04:40 09/19/17 12:43 White Blood Count 9.3 TH/MM3 Red Blood Count 3.08 MIL/MM3 Hemoglobin 8.4 GM/DL Hematocrit 26.5 % Mean Corpuscular Volume 86.1 FL Mean Corpuscular Hemoglobin 27.1 PG Mean Corpuscular Hemoglobin Concent 31.5 % Red Cell Distribution Width 20.7 % Platelet Count 189 TH/MM3 Mean Platelet Volume 7.4 FL Blood Urea Nitrogen 11 MG/DL Creatinine 0.78 MG/DL Random Glucose 120 MG/DL Calcium Level 8.0 MG/DL Sodium Level 144 MEQ/L Potassium Level 4.1 MEQ/L Chloride Level 106 MEQ/L Carbon Dioxide Level 34.6 MEQ/L Anion Gap 3 MEQ/L Estimat Glomerular Filtration Rate 72 ML/MIN Date/Time Source Procedure Growth Status 09/15/17 08:55 Blood Peripheral Aerobic Blood Culture - Preliminary NO GROWTH IN 4 DAYS Resulted 09/15/17 08:55 Blood Peripheral Anaerobic Blood Culture - Preliminary NO GROWTH IN 4 DAYS Resulted 09/18/17 13:33 Stool Stool Stool Occult Blood (ANNA) - Final HEMOCCULT NEGATIVE Complete 09/15/17 09:21 Nasal Aspirate Influenza Types A,B Antigen (ANNA) - Final NEGATIVE FOR FLU A AND B ANTIGEN.... Complete Physical Examination HEENT: Pupils round and reactive to light; normocephalic; atraumatic; mild facial edema NECK: Neck is supple, short, obese CHEST: Not breathing over current mechanical ventilation, no obvious rhonchi CARDIAC: Regular rate and rhythm ABDOMEN: Obese, large, Soft, nondistended, nontender to light palpation; no hepatosplenomegaly; bowel sounds are present in all four quadrants. EXTREMITIES: Trace lower extremity edema SKIN: Pale, Normal; no rash; no jaundice. CELLAR HAND: Drowsy but does answer simple questions by nodding, currently on mechanical ventilation (Fatou Oh) Assessment and Plan Assessment: (1) Iron deficiency anemia due to chronic blood loss ICD Codes: D50.0 - Iron deficiency anemia secondary to blood loss (chronic) Plan Symptomatic anemia, probable secondary to Xarelto and chronic disease. Patient denies any dark tarry stools, colonoscopy in the past but timing unknown but does not yes to many years ago. No known endoscopy Currently patient is in the PACU setting so communication is limited and patient is on mechanical ventilation. Patient's had a total of 4 units transfused since her admission. Currently hemoglobin is 8.4, was noted to be 2 in the emergency room. Large cystic mass was seen in the pelvis on admission. Briefly discussed with patient the need for EGD and colonoscopy when she was a little more stable. Plan EGD and colonoscopy when patient is stable timing TBA Monitor hemoglobin and labs On after for any acute GI bleeding Anti-emetics as needed Into new to hold Xarelto Transfuse as needed PPI Bowel regimen Supportive care Patient was seen per myself and Dr. Fatima, note written on his behalf (Fatou Oh) Physician Comments Seen and examined with SHE, no active bleeding. S/p pelvic surgery for mass. Transfuse as needed. Egd/colonoscopy depending upon results of biopsy. Thank you (Jessica Fatima MD) Fatou Oh Sep 19, 2017 15:53 Jessica Fatima MD Sep 20, 2017 15:45
[2017-09-19] MEDS: PANTOPRAZOLE SODIUM 40 MG VIAL IV PUSH SCH (16:00)
--- NOTE | 2017-09-19 18:54 | HHI.CCPN ---
Subjective Remarks/Hospital Course This is a 77yF with history of COPD who presents with severe fatigue and frequent falls. She was severely altered when she was admitted by EMS so no history was obtainable by her. In the emergency department, she was found to have a hgb 2. she was given 3 units PRBC emergently. her mental status improved with blood transfusion. When I evaluated the patient, she was awake and alert. she is, however, very confused and only oriented to person. she does endorse frequent falls and fatigue. due to her confusion, she is a very poor historian and very difficult to obtain a reliable history from. ROS is essentially unobtainable other than her frequent falls and fatigue. she continues to perseverate on wanting to go home. When asked additional questions about her medical history, she keeps stating "I'm falling a lot. and I'm very tired." After blood transfusions, she is on 1L o2 by NC and hemodynamically stable, and has remained stable for 8 hours in the emergency department. As part of the work-up for her anemia, CT chest/abd/pelvis demonstrates a very large cystic mass in her pelvis which is concerning for malignancy. she states she knows nothing of this. Subjective 09/19: Seen postoperatively in room 1328. Today patient had a D&C, cystoscopy, repair of tear of vaginal wall. 800 crystalloid. 20 cc EBL. 200 cc urine. Anesthesia was unable to extubate postoperatively. We are asked to see Objective Vital Signs Date Time Temp Pulse Resp B/P (MAP) Pulse Ox O2 Delivery O2 Flow Rate FiO2 09/19/17 17:44 100 30 09/19/17 16:00 63 09/19/17 16:00 99.0 13 131/63 (85) 09/19/17 15:54 Mechanical Ventilator 09/18/17 20:33 3.00 Intake and Output 09/19/17 09/19/17 09/20/17 08:00 16:00 00:00 Intake Total 240 ml 700 ml Output Total 200 ml 20 ml Balance 40 ml 680 ml Result Diagram: 09/19/17 0440 09/19/17 0440 Other Results Microbiology Date/Time Source Procedure Growth Status 09/15/17 08:55 Blood Peripheral Aerobic Blood Culture - Preliminary NO GROWTH IN 4 DAYS Resulted 09/15/17 08:55 Blood Peripheral Anaerobic Blood Culture - Preliminary NO GROWTH IN 4 DAYS Resulted 09/18/17 13:33 Stool Stool Stool Occult Blood (ANNA) - Final HEMOCCULT NEGATIVE Complete 09/15/17 09:21 Nasal Aspirate Influenza Types A,B Antigen (ANNA) - Final NEGATIVE FOR FLU A AND B ANTIGEN.... Complete Imaging Last Impressions Lower Extremity Ultrasound 09/16/17 0000 Signed Impressions: Service Date/Time: Saturday, September 16, 2017 17:44 - CONCLUSION: Negative exam with no evidence of deep venous thrombosis. Pepe Rodriguez MD Chest CT 09/15/17 0949 Signed Impressions: Service Date/Time: August 11:05 - CONCLUSION: 1. No focal or acute intrathoracic disease. 2. Elevation of left hemidiaphragm. Jeremias Worthy MD Abdomen/Pelvis CT 09/15/1749 Signed Impressions: Service Date/Time: August 11:05 - CONCLUSION: 1. There is a large left adnexal/pelvic complex mass measuring 11 cm. There is a diffusely abnormal enlarged uterus with abnormal cystic changes in the lower uterine segment. 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 2. Gallstone in the gallbladder with no biliary tract obstruction. 3. Scattered diverticulosis of the descending and sigmoid colon without inflammatory changes. Jeremias Worthy MD Chest X-Ray 09/15/17 0850 Signed Impressions: Service Date/Time: August 09:36 - CONCLUSION: No acute disease. No significant change has occurred. Jeremias Worthy MD Pelvis Ultrasound 09/15/17 0000 Signed Impressions: Service Date/Time: August 12:22 - CONCLUSION: Large complex cystic lesions in the midline measuring 12.7 x 10.4 x 10.8 cm and within the left adnexal region measuring 14.3 x 10.0 x 8.8 cm raising the possibility of ovarian neoplasm until proven otherwise. Nilesh Salas MD Objective Remarks GENERAL: 77-year-old female currently orotracheally intubated SKIN: Warm and dry. No rash HEAD: Atraumatic. Normocephalic. EYES: Pupils equal and round about 2 mm bilaterally and reactive. No scleral icterus. No injection or drainage. ENT: No nasal bleeding or discharge. Mucous membranes pink and moist. NECK: Trachea midline. No JVD. CARDIOVASCULAR: Regular rate and rhythm. S1, S2. No S4 without murmur RESPIRATORY: Clear to auscultation. Breath sounds equal bilaterally. GASTROINTESTINAL: Abdomen soft, non-tender, nondistended. Suprapubic firmness appreciated hypoactive bowel sounds are appreciated. MUSCULOSKELETAL: Extremities without clubbing, cyanosis, or edema. No obvious deformities. NEUROLOGICAL: Awake and alert. No obvious cranial nerve deficits. Motor grossly within normal limits. Five out of 5 muscle strength in the arms and legs. Urinary Catheter: Yes Assessment to: Continue Arellano insert reason: Prolonged Immobilization Vascular Central Line Catheter: No Assessment to: Continue A/P Assessment and Plan Neuro/Psych: Depression/anxiety disorder not otherwise specified History of TIA Propofol/fentanyl drips written for sedation/analgesia while intubated Goal of RA SS -2 Daily sedation vacation Patient is on sertraline 100 mg twice daily at home for depression. Patient is on alprazolam 0.5 mg at night for anxiety She is on hydrocodone/acetaminophen 5/325 every 4 hours as needed for pain 1 through 10 CV: History of hypertension Dyslipidemia Currently on normal saline at 84 cc an hour Home medications include lisinopril 20 mg daily for hypertension. Home medications include ezetimibe 10 mg daily and pravastatin 80 mg daily for dyslipidemia Currently on furosemide 20 mg daily Resp: Postoperative respiratory failure [facility]500/06/24/29 Ventilator bundle Albuterol/ipratropium aerosols every 6 hours with albuterol aerosols every 2 hours as needed dyspnea Add budesonide 0.5/2 1 inhalation twice daily Spontaneous breathing trials when clinically indicated Follow-up chest x-ray and ABG At home on Budesonide/formoterol 160/4.5 2 puffs twice daily GI: History of colonic polyps Gastroesophageal reflux disease Cholelithiasis Sigmoid diverticulosis Currently n.p.o. NGT to MARIA E Pantoprazole 40 mg IV twice daily for GI prophylaxis Docusate sodium/senna 1 tablet twice daily for bowel regimen CT abdomen/pelvis revealed cholelithiasis and sigmoid diverticulosis. Evaluated by gastroenterology. Will eventually need EGD/colonoscopy when stable : Arellano catheter will be placed for accurate I's and O's in a critically ill patient Endo: Diabetes mellitus type 2 Sliding scale insulin with Accu-Cheks to maintain euglycemia every 6 hours Novulog low regimen Renal: Creatinine currently within normal limits Monitor urine output Accurate I's and O's Heme: Anemia Chronic rivaroxaban use History of left lower extremity DVT Left pelvic mass CT abdomen/pelvis revealed 14.89.6 uterine mass with the 11 x 9 left adnexal mass. Status post D&C/cystoscopy with a paravaginal tear by gynecology 09/19. Pathology pending ID: Monitor for infection FEN: Replace electrolytes as clinically indicated MSK: Physical therapy evaluate and treat Access -Utilize peripheral IV. Central line if indicated Prophylaxis -GI -pantoprazole -DVT -SCD/holding pharmacological prophylaxis post surgical procedure Level 2 follow-up. Trae Gaston MD Sep 19, 2017 18:54
[2017-09-19] MEDS ORDERED: fentaNYL DRIP 250 ML IV PRN (19:00)
[2017-09-19] MEDS ORDERED: RESP: ALBUTEROL 2.5 MG/3 ML NEB (PRN) NEB (19:30)
[2017-09-19] MEDS ORDERED: hydrALAZINE HCL 20 MG/ML VIAL IV PUSH PRN (19:45)
[2017-09-19] MEDS ORDERED: GLUCAGON 1 MG/ML VIAL OTHER PRN (19:45)
[2017-09-19] MEDS ORDERED: LABETALOL HCL 100 MG/20 ML VIAL IV PUSH PRN (19:45)
[2017-09-19] MEDS ORDERED: DEXTROSE 50% IN WATER 50 ML VIAL(D50) IV PUSH PRN (19:45)
[2017-09-19] MEDS ORDERED: CHLORHEXIDINE 0.12% (ORAL KIT) 15 ML CUP MT SCH (20:00)
[2017-09-19] MEDS ORDERED: RESP: BUDESONIDE 0.5 MG/2 ML NEB NEB SCH (20:00)
[2017-09-19] MEDS: SODIUM CHLOR 0.9% 1000 ML INJ 1,000 ML IV SCH (20:34)
[2017-09-19] MEDS: PROPOFOL 1000 MG/100 ML INJ 100 ML IV PRN (20:39)
[2017-09-19] MEDS: RESP: ALBUTEROL 2.5 MG/IPRATROPIUM 0.5 MG NEB (SCH) NEB (21:24)
[2017-09-20] VITALS (16 sets, daily range): BP systolic 116–177; BP diastolic 58–82; PULSE 64–91; RESP 16–27; TEMP 97.9–98.9; O2SAT 92–99
[2017-09-20] MEDS: RESP: ALBUTEROL 2.5 MG/IPRATROPIUM 0.5 MG NEB (SCH) NEB ×7 (00:06→23:46)
[2017-09-20] MEDS: CHLORHEXIDINE 0.12% (ORAL KIT) 15 ML CUP MT SCH ×3 (01:33→20:00)
[2017-09-20] MEDS: PROPOFOL 1000 MG/100 ML INJ 100 ML IV PRN (01:34)
[2017-09-20] MEDS: SODIUM CHLORIDE 0.9% FLUSH 10 ML FLUSH IV FLUSH SCH ×3 (01:34→21:00)
[2017-09-20] MEDS: PANTOPRAZOLE SODIUM 40 MG VIAL IV PUSH SCH ×2 (03:42→16:27)
[2017-09-20 04:36] LABS: HEMATOCRIT 23.5 % (35.0-46.0); HEMOGLOBIN 7.5 GM/DL (11.6-15.3); MEAN CELL VOLUME 86.6 FL (80.0-100.0); MEAN CORPUSCULAR HEMOGLOBIN 27.7 PG (27.0-34.0); PLATELET COUNT 164 TH/MM3 (150-450); RED BLOOD COUNT 2.72 MIL/MM3 (4.00-5.30); RED CELL DISTRIBUTION WIDTH 20.9 % (11.6-17.2); WHITE BLOOD COUNT 7.9 TH/MM3 (4.0-11.0)
[2017-09-20 04:47] LABS: BICARBONATE 31.6 MEQ/L (21.0-32.0); CALCIUM 7.8 MG/DL (8.5-10.1); CREATININE 0.76 MG/DL (0.50-1.00); MAGNESIUM 1.9 MG/DL (1.5-2.5)
[2017-09-20 04:48] LABS: PHOSPHORUS 0.9 MG/DL (2.5-4.9)
[2017-09-20] MEDS: INSULIN ASPART SUPPLEMENTAL SCALE SQ SCH ×6 (05:39→21:00)
[2017-09-20] MEDS: SODIUM CHLOR 0.9% 1000 ML INJ 1,000 ML IV SCH (07:05)
[2017-09-20] MEDS: PRAVASTATIN SOD 80 MG TAB PO SCH (07:26)
[2017-09-20] MEDS: SERTRALINE HCL 100 MG TAB PO SCH ×2 (07:26→22:33)
[2017-09-20] MEDS: FOLIC ACID 1 MG TAB PO SCH (07:26)
[2017-09-20] MEDS: DOCUSATE SODIUM 50 MG/SENNA 8.6 MG TAB PO SCH ×2 (07:26→21:00)
[2017-09-20] MEDS: CLOTRIMAZOLE 1% CREAM 15 GM TOPICAL SCH ×2 (07:28→21:00)
[2017-09-20] MEDS: EZETIMIBE 10 MG TAB PO SCH (08:38)
--- NOTE | 2017-09-20 08:55 | HHI.CCPN ---
Subjective Remarks/Hospital Course This is a 77yF with history of COPD who presents with severe fatigue and frequent falls. She was severely altered when she was admitted by EMS so no history was obtainable by her. In the emergency department, she was found to have a hgb 2. she was given 3 units PRBC emergently. her mental status improved with blood transfusion. When I evaluated the patient, she was awake and alert. she is, however, very confused and only oriented to person. she does endorse frequent falls and fatigue. due to her confusion, she is a very poor historian and very difficult to obtain a reliable history from. ROS is essentially unobtainable other than her frequent falls and fatigue. she continues to perseverate on wanting to go home. When asked additional questions about her medical history, she keeps stating "I'm falling a lot. and I'm very tired." After blood transfusions, she is on 1L o2 by NC and hemodynamically stable, and has remained stable for 8 hours in the emergency department. As part of the work-up for her anemia, CT chest/abd/pelvis demonstrates a very large cystic mass in her pelvis which is concerning for malignancy. she states she knows nothing of this. 09/19: Seen postoperatively in room 1328. Today patient had a D&C, cystoscopy, repair of tear of vaginal wall. 800 crystalloid. 20 cc EBL. 200 cc urine. Anesthesia was unable to extubate postoperatively. We are asked to see Subjective 09/20: Extubated today without complication. No focal neurological deficits. Hemoglobin currently 7.5. Clinically stable. No signs of acute bleeding. Currently on 4 L nasal cannula. Swallow study pending Objective Vital Signs Date Time Temp Pulse Resp B/P (MAP) Pulse Ox O2 Delivery O2 Flow Rate FiO2 09/20/17 08:00 84 09/20/17 08:00 99 Nasal Cannula 4 09/20/17 08:00 97.9 24 177/78 (111) 09/20/17 07:19 30 Intake and Output 09/20/17 09/20/17 09/20/17 07:59 15:59 23:59 Intake Total 1116 ml Output Total 875 ml Balance 241 ml Result Diagram: 09/20/17 0407 09/20/17 0407 Other Results Microbiology Date/Time Source Procedure Growth Status 09/15/17 08:55 Blood Peripheral Aerobic Blood Culture - Preliminary NO GROWTH IN 4 DAYS Resulted 09/15/17 08:55 Blood Peripheral Anaerobic Blood Culture - Preliminary NO GROWTH IN 4 DAYS Resulted 09/18/17 13:33 Stool Stool Stool Occult Blood (ANNA) - Final HEMOCCULT NEGATIVE Complete 09/15/17 09:21 Nasal Aspirate Influenza Types A,B Antigen (ANNA) - Final NEGATIVE FOR FLU A AND B ANTIGEN.... Complete Imaging Last Impressions Lower Extremity Ultrasound 09/16/17 0000 Signed Impressions: Service Date/Time: Saturday, September 16, 2017 17:44 - CONCLUSION: Negative exam with no evidence of deep venous thrombosis. Pepe Rodriguez MD Chest CT 09/15/17 0949 Signed Impressions: Service Date/Time: August 11:05 - CONCLUSION: 1. No focal or acute intrathoracic disease. 2. Elevation of left hemidiaphragm. Jeremias Worthy MD Abdomen/Pelvis CT 09/15/17 0949 Signed Impressions: Service Date/Time: August 11:05 - CONCLUSION: 1. There is a large left adnexal/pelvic complex mass measuring 11 cm. There is a diffusely abnormal enlarged uterus with abnormal cystic changes in the lower uterine segment. 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 2. Gallstone in the gallbladder with no biliary tract obstruction. 3. Scattered diverticulosis of the descending and sigmoid colon without inflammatory changes. Jeremias Worthy MD Chest X-Ray 09/15/17 0850 Signed Impressions: Service Date/Time: August 09:36 - CONCLUSION: No acute disease. No significant change has occurred. Jeremias Worthy MD Pelvis Ultrasound 09/15/17 0000 Signed Impressions: Service Date/Time: August 12:22 - CONCLUSION: Large complex cystic lesions in the midline measuring 12.7 x 10.4 x 10.8 cm and within the left adnexal region measuring 14.3 x 10.0 x 8.8 cm raising the possibility of ovarian neoplasm until proven otherwise. Nilesh Salas MD Objective Remarks GENERAL: 77-year-old female currently resting in bed on 4 L nasal cannula in no acute distress SKIN: Warm and dry. No rash HEAD: Atraumatic. Normocephalic. EYES: Pupils equal and round about 2 mm bilaterally and reactive. No scleral icterus. No injection or drainage. ENT: No nasal bleeding or discharge. Mucous membranes pink and moist. NECK: Trachea midline. No JVD. CARDIOVASCULAR: Regular rate and rhythm. S1, S2. No S4 without murmur RESPIRATORY: Clear to auscultation. Breath sounds equal bilaterally. GASTROINTESTINAL: Abdomen soft, non-tender, nondistended. Suprapubic firmness appreciated hypoactive bowel sounds are appreciated. MUSCULOSKELETAL: Extremities without clubbing, cyanosis, or edema. No obvious deformities. NEUROLOGICAL: Awake and alert. No obvious cranial nerve deficits. Motor grossly within normal limits. Five out of 5 muscle strength in the arms and legs. Urinary Catheter: No Assessment to: Continue Vascular Central Line Catheter: No Assessment to: Continue A/P Assessment and Plan Neuro/Psych: Depression/anxiety disorder not otherwise specified History of TIA Patient is on sertraline 100 mg twice daily at home for depression. Patient is on alprazolam 0.5 mg at night for anxiety She is on hydrocodone/acetaminophen 5/325 every 4 hours as needed for pain 1 through 10 CV: History of hypertension Dyslipidemia Currently on normal saline at 84 cc an hour Home medications include lisinopril 20 mg daily for hypertension. Home medications include ezetimibe 10 mg daily and pravastatin 80 mg daily for dyslipidemia Currently on furosemide 20 mg daily Resp: Postoperative respiratory failure COPD Nasal cannula to maintain saturations greater than equal to 90% Incentive spirometry while awake Albuterol/ipratropium aerosols every 6 hours with albuterol aerosols every 2 hours as needed dyspnea At home on Budesonide/formoterol 160/4.5 2 puffs twice daily GI: History of colonic polyps Gastroesophageal reflux disease Cholelithiasis Sigmoid diverticulosis Currently n.p.o. Swallow evaluation and advance diet as tolerated Pantoprazole 40 mg IV twice daily for GI prophylaxis Docusate sodium/senna 1 tablet twice daily for bowel regimen CT abdomen/pelvis revealed cholelithiasis and sigmoid diverticulosis. Evaluated by gastroenterology. Will eventually need EGD/colonoscopy when stable : Arellano catheter will be placed for accurate I's and O's in a critically ill patient Endo: Diabetes mellitus type 2 Sliding scale insulin with Accu-Cheks to maintain euglycemia every before meals/ at bedtime Novulog low regimen Renal: Creatinine currently within normal limits Monitor urine output Accurate I's and O's Heme: Anemia Chronic rivaroxaban use History of left lower extremity DVT Left pelvic mass CT abdomen/pelvis revealed 14.89.6 uterine mass with the 11 x 9 left adnexal mass. Status post D&C/cystoscopy with a paravaginal tear by gynecology 09/19. Pathology pending Hemoglobin currently 7.5. No indication for transfusion of blood products at this time ID: Monitor for infection FEN: Hypophosphatemia 15 mmol sodium phosphate potassium post IV 1 now. Recheck in a.m. Replace electrolytes as clinically indicated MSK: Physical therapy evaluate and treat Access -Utilize peripheral IV. Central line if indicated Prophylaxis -GI -pantoprazole -DVT -SCD/holding pharmacological prophylaxis post surgical procedure Level 2 follow-up. Patient clinically stable from critical care medicine standpoint. Assign care to hospitalist in a.m. 09/21. Trae Gaston MD Sep 20, 2017 08:55
[2017-09-20] MEDS: BUDESONIDE-FORMOTEROL 160/4.5 MCG INHALER INH SCH ×2 (09:00→22:33)
[2017-09-20] MEDS ORDERED: SODIUM PHOSPHATE INJ 15 MMOL in SODIUM CHLORIDE 0.9% INJ 150 ML IV ONE (09:00)
[2017-09-20] MEDS ORDERED: POTASSIUM PHOSPHATE INJ 15 MMOL in SODIUM CHLORIDE 0.9% INJ 150 ML IV ONE (09:00)
[2017-09-20] MEDS: FUROSEMIDE 20 MG TAB PO SCH (12:28)
--- NOTE | 2017-09-20 13:09 | HHI.GIFU ---
Subjective Remarks Pt resting in bed. No bleeding today. s/p repair tear vaginal wall. She tells me she has had severely low hgb before, some years ago, and that she was having some sort of LGIB and had to go to a specialist in [facility] to remove something from her colon. She does not want EGD and colonsocopy at this time. (Graciela Givens BRUSH FABRICATION SUPERVISOR) Objective Vitals I&O Vital Signs Date Time Temp Pulse Resp B/P (MAP) Pulse Ox O2 Delivery O2 Flow Rate FiO2 09/20/17 12:00 98.1 82 23 136/60 (85) 97 09/20/17 12:00 82 09/20/17 11:46 72 27 136/60 (85) 98 09/20/17 10:00 83 09/20/17 08:00 84 09/20/17 08:00 99 Nasal Cannula 4 09/20/17 08:00 97.9 83 24 177/78 (111) 99 09/20/17 07:59 99 Nasal Cannula 4.00 09/20/17 07:19 30 09/20/17 07:07 81 19 128/82 (97) 99 09/20/17 06:00 66 09/20/17 04:00 30 09/20/17 04:00 98.7 64 18 136/65 (88) 99 09/20/17 04:00 64 09/20/17 02:00 64 09/20/17 00:00 96 30 09/20/17 00:00 98.9 67 18 116/58 (77) 95 09/20/17 00:00 30 09/20/17 00:00 67 09/19/17 22:00 76 09/19/17 22:00 106/72 (83) 09/19/17 21:28 100 30 09/19/17 20:00 71 09/19/17 20:00 99.5 71 22 182/96 (124) 99 09/19/17 18:41 98.0 64 18 154/67 (96) 100 09/19/17 18:00 30 09/19/17 18:00 66 09/19/17 17:44 100 30 09/19/17 16:58 99 50 09/19/17 16:00 63 09/19/17 16:00 70 09/19/17 16:00 99.0 66 13 131/63 (85) 100 09/19/17 15:54 97.6 66 10 154/68 (96) 98 Mechanical Ventilator 70 09/19/17 14:30 65 10 134/64 (87) 98 Mechanical Ventilator 70 09/19/17 14:00 65 16 134/63 (86) 98 Mechanical Ventilator 70 09/19/17 13:30 66 16 148/72 (97) 98 Mechanical Ventilator 70 09/19/17 13:15 70 I/O 09/19/17 09/19/17 09/19/17 09/20/17 09/20/17 09/20/17 07:00 15:00 23:00 07:00 15:00 23:00 Intake Total 240 ml 700 ml 1116 ml 0 ml Output Total 200 ml 20 ml 0 ml 875 ml Balance 40 ml 680 ml 0 ml 241 ml 0 ml Intake Oral 240 ml 0 ml 0 ml IV Total 700 ml 1116 ml Output Urine Total 200 ml 0 ml 600 ml Gastric Drainage Total 275 ml Estimated Blood Loss 20 ml # Voids 1 # Bowel Movements 0 Laboratory Laboratory Tests Test 09/19/17 17:17 09/20/17 04:07 Blood Gas Puncture Site RT RADIAL Blood Gas Patient Temperature 98.6 Blood Gas HCO3 34 Blood Gas Base Excess 8.5 Blood Gas Oxygen Saturation 97 Arterial Blood pH 7.34 Arterial Blood Partial Pressure CO2 65 Arterial Blood Partial Pressure O2 164 Arterial Blood Oxygen Content 10.5 Arterial Blood Carboxyhemoglobin 2.1 Arterial Blood Methemoglobin 0.8 Blood Gas Hemoglobin 7.4 Oxygen Delivery Device VENTILATOR Blood Gas Ventilator Setting PRVC/AC Blood Gas Inspired Oxygen 50 White Blood Count 7.9 Red Blood Count 2.72 Hemoglobin 7.5 Hematocrit 23.5 Mean Corpuscular Volume 86.6 Mean Corpuscular Hemoglobin 27.7 Mean Corpuscular Hemoglobin Concent 32.0 Red Cell Distribution Width 20.9 Platelet Count 164 Mean Platelet Volume 8.0 Blood Urea Nitrogen 12 Creatinine 0.76 Random Glucose 86 Calcium Level 7.8 Phosphorus Level 0.9 Magnesium Level 1.9 Sodium Level 145 Potassium Level 4.1 Chloride Level 108 Carbon Dioxide Level 31.6 Anion Gap 5 Estimat Glomerular Filtration Rate 74 Date/Time Source Procedure Growth Status 09/15/17 08:55 Blood Peripheral Aerobic Blood Culture - Final NO GROWTH IN 5 DAYS Complete 09/15/17 08:55 Blood Peripheral Anaerobic Blood Culture - Final NO GROWTH IN 5 DAYS Complete 09/18/17 13:33 Stool Stool Stool Occult Blood (ANNA) - Final HEMOCCULT NEGATIVE Complete 09/15/17 09:21 Nasal Aspirate Influenza Types A,B Antigen (ANNA) - Final NEGATIVE FOR FLU A AND B ANTIGEN.... Complete Imaging Last Impressions Lower Extremity Ultrasound 09/16/17 0000 Signed Impressions: Service Date/Time: Saturday, September 16, 2017 17:44 - CONCLUSION: Negative exam with no evidence of deep venous thrombosis. Pepe Rodriguez MD Chest CT 09/15/1749 Signed Impressions: Service Date/Time: August 11:05 - CONCLUSION: 1. No focal or acute intrathoracic disease. 2. Elevation of left hemidiaphragm. Jeremias Worthy MD Abdomen/Pelvis CT 09/15/1749 Signed Impressions: Service Date/Time: August 11:05 - CONCLUSION: 1. There is a large left adnexal/pelvic complex mass measuring 11 cm. There is a diffusely abnormal enlarged uterus with abnormal cystic changes in the lower uterine segment. These findings suggest PBX MECHANIC neoplastic disease. 2. Gallstone in the gallbladder with no biliary tract obstruction. 3. Scattered diverticulosis of the descending and sigmoid colon without inflammatory changes. Jeremias Worthy MD Chest X-Ray 09/15/17 0850 Signed Impressions: Service Date/Time: August 09:36 - CONCLUSION: No acute disease. No significant change has occurred. Jeremias Worthy MD Pelvis Ultrasound 09/15/17 0000 Signed Impressions: Service Date/Time: August 12:22 - CONCLUSION: Large complex cystic lesions in the midline measuring 12.7 x 10.4 x 10.8 cm and within the left adnexal region measuring 14.3 x 10.0 x 8.8 cm raising the possibility of ovarian neoplasm until proven otherwise. Nilesh Salas MD Physical Exam HEENT: PERRL; normocephalic; atraumatic; no jaundice. CHEST: CTA CARDIAC: RRR ABDOMEN: Soft,obese, nontender; no hepatosplenomegaly; bowel sounds are present in all four quadrants. EXTREMITIES: No clubbing, cyanosis, or edema. SKIN: Normal; no rash; no jaundice. BATCH ROLLER OPERATOR: No focal deficits; alert and oriented times three. (Graciela Givens) Assessment and Plan Assessment: (1) Iron deficiency anemia due to chronic blood loss ICD Codes: D50.0 - Iron deficiency anemia secondary to blood loss (chronic) Plan Symptomatic anemia, multifactorial. pt was on xarelto. Patient denies any dark tarry stools, colonoscopy in the past but timing unknown but does not yes to many years ago. No known endoscopy Currently patient is in the PACU setting so communication is limited and patient is on mechanical ventilation. Patient's had a total of 4 units transfused since her admission. Currently hemoglobin is 8.4, was noted to be 2 in the emergency room. Large cystic mass was seen in the pelvis on admission. Briefly discussed with patient the need for EGD and colonoscopy when she was a little more stable. 09/20/17 pt cites prior hx severe anemia and sounds like could have been r/t some sort of LGIB but she is poor historian. She is refusing EGD and colonoscopy at this time. s/prepair tear vaginal wall yesterday. Denies bleeding Plan refusing EGD and colonoscopy Monitor hemoglobin and labs notify GI of active bleeding Transfuse as needed Supportive care f/u with GI after d/c Patient was seen per myself and Dr. Fatima, note written on his behalf (Graciela Givens) Physician Comments Seen and examined with BRUSH FABRICATION SUPERVISOR, feeling good, no gi symptoms. refusing any gi ruiz as inpatient. States she will do further ruiz as outpatient. Gi will sign off. Please have her fu with gi upon dc. Thank you. (Jessica Fatima MD) Graciela Givens Sep 20, 2017 13:09 Jessica Fatima MD Sep 20, 2017 15:48
--- NOTE | 2017-09-20 14:54 | MP ---
cc: Mara Hilario MD,Pedro Gaston,Trae Ly,Víctor MCCRACKEN DATE OF OPERATION: 09/19/2017 PREOPERATIVE DIAGNOSES: 1. Pelvic mass (or pelvic masses). 2. Profound anemia, transfusion dependent. 3. Need to evaluate for possible gynecologic source of bleeding. POSTOPERATIVE DIAGNOSES: 1. Pelvic mass (or pelvic masses). 2. Profound anemia, transfusion dependent. 3. Need to evaluate for possible gynecologic source of bleeding. PROCEDURE: Examination under anesthesia, fractional dilation and curettage, cystoscopy. SURGEON: Mara Hilario MD PLANT BREEDER SCIENTIST: Paul social science research assistant. ANESTHESIA: General endotracheal. ESTIMATED BLOOD LOSS: Less than 20 mL. HISTORY: A 77-year-old female who presented in a near-obtunded state, lethargic, confused, found to have a hemoglobin of 2.7, requiring multiple transfusions. Source of bleeding not entirely clear. After fluid hydration and transfusion, her sensorium cleared to some extent. By history, it sounds as though she may have dark tar-like stool. She denies any vaginal bleeding, spotting or blood discharge. She denies any pelvic pain. She previously had some type of gastrointestinal workup. She reports having polyps removed from the colon. Confounding variable is the fact that she is on Xarelto as a blood thinner, which has at this point been held. She was counseled regarding the anatomical changes in the pelvis showing a probably enlarged uterus, certainly what appears to be an adnexal mass, possibly more than 1 mass. We recommended evaluation to ensure that there is no obvious gynecologic source for bleeding. She expressed good understanding and agree with recommendations. FINDINGS: On exam under anesthesia, she has a moderate rectocele, mild cystocele. Cervix itself is small, circumferential, mobile. There is no blood visible. There is no parametrial nodularity. The uterine fundus seems to extend, although it cannot be palpated on initial, but in the posterior cul-de-sac on the right side, there is a nodular mass in the cul-de-sac. Palpable portion of it is estimated to be at least 8 cm. No adenopathy or other nodularity, no overt ascites. Upon sampling the endocervix was a scant amount of tissue. There was some scar tissue in the endocervical canal. The uterine cavity sounded seemingly to 11 cm with scant polypoid fragments of the endometrium. Otherwise, normal gritty endometrium. No significant bleeding or blood detected. On cystoscopy, the mucosa appears normal circumferentially. There is no mass or polyp. No abnormality within the bladder wall. The ureteral ostia are well visualized with good efflux of urine bilaterally. DESCRIPTION OF PROCEDURE: She was taken to the operating room and placed in dorsal lithotomy position. After general endotracheal anesthesia was administered and timeout was undertaken, she was identified by site recognition and hospital ID oxana, and the proposed procedure was reviewed and confirmed. An exam under anesthesia was performed with findings as described above. She was prepped and draped in sterile fashion. In-and-out catheterization of bladder was performed. Cervix was grasped. A lacrimal probe was necessary to break up scar tissue in the endocervical canal and endocervical curettings were obtained. The tissue was combined and endocervical curettings. Dilators were used to dilate the cervix to break up scar tissue further in the endocervix. Uterine cavity sounded to 11 cm. Curetting was performed with findings as described above with a scant amount of tissue obtained. Tenaculum was removed from the cervix. Sites were rendered hemostatic by Monsel solution. Cystoscopy was performed using a 70-degree scope with findings as described above. The bladder was drained. Pelvic exam was again performed. All sites were hemostatic. There were no remaining foreign objects in the vagina. Preliminary and final counts were correct. She was returned to dorsal supine position and was pending reversal of anesthesia when I left the operating room to precede her to the postanesthesia care unit. It is noted that her oxygenation capacity was poor and she had remained intubated. She was transferred to the PACU and remained intubated for a period of time. ADDENDUM: On postoperative day #1 (09/20/2017), Dr. Honey Muonz in pathology called me with preliminary pathology. There was scant benign endocervix with some blood vessels. There was minimal benign-appearing endometrium and there was some tissue that appeared to be adipose tissue. No evidence of malignancy. We will watch her clinically as fat is typically not present in the endometrium, raising the possibility of an abnormal communication between the uterus and the peritoneum or possibility of a perforation of the uterus. There is nothing to suggest bowel wall, bowel mucosa, serosa or other tissue present in the specimen. She will be followed clinically with a note being made of this information as well. MD JEAN PIERRE Vasquez/KARLA , 02:21 PM , 02:52 PM AIDAN
[2017-09-21] VITALS: BP 156/70; PULSE 81; RESP 18; TEMP 97.8; O2SAT 95
[2017-09-21] MEDS: RESP: ALBUTEROL 2.5 MG/IPRATROPIUM 0.5 MG NEB (SCH) NEB ×3 (03:10→12:06)
[2017-09-21 03:56] VITALS: PULSE 82
[2017-09-21 04:00] VITALS: BP 140/73; PULSE 91; RESP 18; TEMP 98; O2SAT 92
[2017-09-21] MEDS: PANTOPRAZOLE SODIUM 40 MG VIAL IV PUSH SCH (04:00)
[2017-09-21 06:00] LABS: HEMATOCRIT 24.7 % (35.0-46.0); HEMOGLOBIN 7.9 GM/DL (11.6-15.3); MEAN CELL VOLUME 87.1 FL (80.0-100.0); MEAN CORPUSCULAR HEMOGLOBIN 27.9 PG (27.0-34.0); MEAN PLATELET VOLUME 7.8 FL (7.0-11.0); PLATELET COUNT 179 TH/MM3 (150-450); RED BLOOD COUNT 2.83 MIL/MM3 (4.00-5.30); RED CELL DISTRIBUTION WIDTH 21.6 % (11.6-17.2); WHITE BLOOD COUNT 7.7 TH/MM3 (4.0-11.0)
[2017-09-21 06:24] LABS: BICARBONATE 32.2 MEQ/L (21.0-32.0); CALCIUM 7.5 MG/DL (8.5-10.1); CREATININE 0.9 MG/DL (0.50-1.00); MAGNESIUM 2.1 MG/DL (1.5-2.5); PHOSPHORUS 3.5 MG/DL (2.5-4.9)
--- NOTE | 2017-09-21 07:20 | PD.ONC.PN ---
Subjective Subjective Remarks land conservation specialist/onc note patient resting in bed awakens to voice no complaints denies any abdominal pain or vaginal bleeding informed her that her pathology from D & C was benign and once she is discharged from the hospital we will follow up with her as outpt, patient agrees and is anxious to go home Objective Data Date Time Temp Pulse Resp B/P (MAP) Pulse Ox O2 Delivery O2 Flow Rate FiO2 09/21/17 04:00 98.0 91 18 140/73 (95) 92 09/21/17 03:56 82 09/21/17 00:00 97.8 81 18 156/70 (98) 95 09/20/17 23:49 76 09/20/17 21:43 80 09/20/17 20:54 96 Nasal Cannula 2.00 09/20/17 20:00 98.2 72 16 169/71 (103) 92 09/20/17 16:00 85 09/20/17 16:00 98.6 80 25 165/64 (97) 97 09/20/17 14:00 91 09/20/17 12:00 98.1 82 23 136/60 (85) 97 09/20/17 12:00 82 09/20/17 11:46 72 27 136/60 (85) 98 09/20/17 10:00 83 09/20/17 08:00 84 09/20/17 08:00 99 Nasal Cannula 4 09/20/17 08:00 97.9 83 24 177/78 (111) 99 09/20/17 07:59 99 Nasal Cannula 4.00 09/20/17 07:19 30 Result Diagram: 09/21/17 0540 09/21/17 0540 Laboratory Results Laboratory Tests Test 09/21/17 05:40 White Blood Count 7.7 TH/MM3 Red Blood Count 2.83 MIL/MM3 Hemoglobin 7.9 GM/DL Hematocrit 24.7 % Mean Corpuscular Volume 87.1 FL Mean Corpuscular Hemoglobin 27.9 PG Mean Corpuscular Hemoglobin Concent 32.0 % Red Cell Distribution Width 21.6 % Platelet Count 179 TH/MM3 Mean Platelet Volume 7.8 FL Blood Urea Nitrogen 11 MG/DL Creatinine 0.90 MG/DL Random Glucose 98 MG/DL Calcium Level 7.5 MG/DL Phosphorus Level 3.5 MG/DL Magnesium Level 2.1 MG/DL Sodium Level 144 MEQ/L Potassium Level 4.2 MEQ/L Chloride Level 107 MEQ/L Carbon Dioxide Level 32.2 MEQ/L Anion Gap 5 MEQ/L Estimat Glomerular Filtration Rate 61 ML/MIN Culture Results Microbiology Date/Time Source Procedure Growth Status 09/18/17 13:33 Stool Stool Stool Occult Blood (ANNA) - Final HEMOCCULT NEGATIVE Complete Administered Medications Medications (Trade) Dose Ordered Sig/Enio Route PRN Reason Start Time Stop Time Status Last Admin Dose Admin Sodium Chloride (NS Flush) 2 ml BID IV FLUSH 09/15/17 21:00 09/20/17 21:00 Senna/Docusate Sodium (Paige-Colace) 1 tab BID PO 09/15/17 21:00 09/20/17 07:26 Folic Acid (Folate) 1 mg DAILY PO 09/16/17 10:00 09/20/17 07:26 Alprazolam (Xanax) 0.5 mg HS PO 09/16/17 21:00 Future Hold 09/18/17 21:13 Budesonide/ Formoterol Fumarate (Symbicort 160-4.5 Mcg Inh) 2 puff BID INH 09/16/17 10:30 09/20/17 22:33 EZETIMIBE (Zetia) 10 mg DAILY PO 09/17/17 09:00 09/20/17 08:38 Furosemide (Lasix) 20 mg DAILY@1200 PO 09/16/17 12:00 09/20/17 12:28 Pravastatin Sodium (Pravachol) 80 mg DAILY PO 09/17/17 09:00 09/20/17 07:26 Sertraline HCl (Zoloft) 100 mg BID PO 09/16/17 21:00 09/20/17 22:33 Clotrimazole (Lotrimin 1% Cream) 1 applic Q12HR TOPICAL 09/16/17 11:00 09/20/17 21:00 Lactated Ringer's 1,000 ml @ 30 mls/hr Q24H PRN IV SEE LABEL COMMENTS 09/19/17 06:45 09/22/17 06:44 09/19/17 08:22 Pantoprazole Sodium (Protonix Inj) 40 mg Q12H IV PUSH 09/19/17 16:00 09/21/17 04:00 Albuterol/ Ipratropium (Duoneb Neb) 1 ampule Q4HR NEB NEB 09/19/17 20:00 09/21/17 03:10 Chlorhexidine Gluconate (Peridex 0.12% Liq) 15 ml BID@08,20 MT 09/19/17 20:00 09/20/17 07:05 Labetalol HCl (Trandate Inj) 10 mg Q4H PRN IV PUSH SBP>160, DBP>90, HR>65 09/19/17 19:45 09/20/17 19:36 Insulin Aspart (NovoLOG SUPPLEMENTAL SCALE) 1 ACHS SQ 09/20/17 08:00 09/20/17 16:41 Objective Remarks GENERAL: Well-nourished, well-developed patient. SKIN: Warm and dry. HEAD: Normocephalic. EYES: No scleral icterus. No injection or drainage. CARDIOVASCULAR: Regular rate and rhythm without murmurs. RESPIRATORY: Breath sounds equal bilaterally. No accessory muscle use. GASTROINTESTINAL: Abdomen soft, non-tender, nondistended. EXTREMITIES: teds and scds NEUROLOGICAL: No obvious focal deficit. Awake, alert, and oriented x3. PSYCHIATRIC: Appropriate mood and affect; insight and judgment normal. Assessment/Plan Problem List: (1) Pelvic mass ICD Codes: R19.00 - Intra-abdominal and pelvic swelling, mass and lump, unspecified site Status: Acute Plan: s/p EUA D & C benign pathology will follow up as outpt for pelvic mass (s) declined GI workup as this time states she will follow up with GI as outpt. Ashwini Paniagua Sep 21, 2017 07:20
[2017-09-21 08:00] VITALS: BP 168/74; PULSE 80; PULSE 86; RESP 16; TEMP 97.4; O2SAT 91
[2017-09-21] MEDS: INSULIN ASPART SUPPLEMENTAL SCALE SQ SCH ×2 (08:00→11:58)
[2017-09-21] MEDS: DOCUSATE SODIUM 50 MG/SENNA 8.6 MG TAB PO SCH (08:11)
[2017-09-21] MEDS: SERTRALINE HCL 100 MG TAB PO SCH (08:12)
[2017-09-21] MEDS: EZETIMIBE 10 MG TAB PO SCH (08:12)
[2017-09-21] MEDS: FOLIC ACID 1 MG TAB PO SCH (08:12)
[2017-09-21] MEDS: PRAVASTATIN SOD 80 MG TAB PO SCH (08:12)
[2017-09-21] MEDS: BUDESONIDE-FORMOTEROL 160/4.5 MCG INHALER INH SCH (08:13)
[2017-09-21] MEDS: SODIUM CHLORIDE 0.9% FLUSH 10 ML FLUSH IV FLUSH SCH (08:13)
[2017-09-21] MEDS: CHLORHEXIDINE 0.12% (ORAL KIT) 15 ML CUP MT SCH (08:13)
[2017-09-21] MEDS: CLOTRIMAZOLE 1% CREAM 15 GM TOPICAL SCH (08:14)
[2017-09-21 09:30] VITALS: O2SAT 97
--- NOTE | 2017-09-21 11:04 | HHI.FF ---
Face to Face Verification Diagnosis: (1) COPD (chronic obstructive pulmonary disease) (2) Impaired mobility and ADLs (3) Pelvic mass (4) Hemorrhagic shock (5) Iron deficiency anemia due to chronic blood loss Home Health Nursing Order: Medical education Signs/symptoms of disease process Diabetic education Oxygen administration education Nursing assessment with vital signs Lcac Operator Order: To Evaluate: Living conditions/environment I have seen patient Shaina Ramesh on 09/21/17. My clinical findings support the need for the requested home health care services because: Ltd mobility - disease progression Patient has SOB Deconditioned w/ increased weakness Need for psychosocial assistance I certify that my clinical findings support that this patient is homebound because: Post-op weakness Hx COPD- exertion dyspnea/weakness Need for psychosocial assistance Tigre Redding MD Sep 21, 2017 11:04
--- NOTE | 2017-09-21 11:55 | HHI.PR ---
Subjective Remarks no further bleeding tolerating po well no pain complains Objective Vitals Vital Signs Date Time Temp Pulse Resp B/P (MAP) Pulse Ox O2 Delivery O2 Flow Rate FiO2 09/21/17 09:30 97 Nasal Cannula 2.00 09/21/17 08:00 86 09/21/17 08:00 97.4 80 16 168/74 (105) 91 09/21/17 04:00 98.0 91 18 140/73 (95) 92 09/21/17 03:56 82 09/21/17 00:00 97.8 81 18 156/70 (98) 95 09/20/17 23:49 76 09/20/17 21:43 80 09/20/17 20:54 96 Nasal Cannula 2.00 09/20/17 20:00 98.2 72 16 169/71 (103) 92 09/20/17 16:00 85 09/20/17 16:00 98.6 80 25 165/64 (97) 97 09/20/17 14:00 91 09/20/17 12:00 98.1 82 23 136/60 (85) 97 09/20/17 12:00 82 I/O 09/20/17 09/20/17 09/20/17 09/21/17 09/21/17 09/21/17 07:00 15:00 23:00 07:00 15:00 23:00 Intake Total 1116 ml 0 ml 660 ml Output Total 875 ml Balance 241 ml 0 ml 660 ml Intake Oral 0 ml 0 ml 360 ml IV Total 1116 ml 300 ml Output Urine Total 600 ml Gastric Drainage Total 275 ml # Voids 1 1 # Bowel Movements 0 0 Result Diagram: 09/21/17 0540 09/21/17 0540 Imaging Last Impressions Lower Extremity Ultrasound 09/16/17 0000 Signed Impressions: Service Date/Time: Saturday, September 16, 2017 17:44 - CONCLUSION: Negative exam with no evidence of deep venous thrombosis. Pepe Rodriguez MD Chest CT 09/15/1749 Signed Impressions: Service Date/Time: August 11:05 - CONCLUSION: 1. No focal or acute intrathoracic disease. 2. Elevation of left hemidiaphragm. Jeremias Worthy MD Abdomen/Pelvis CT 09/15/1749 Signed Impressions: Service Date/Time: August 11:05 - CONCLUSION: 1. There is a large left adnexal/pelvic complex mass measuring 11 cm. There is a diffusely abnormal enlarged uterus with abnormal cystic changes in the lower uterine segment. 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 2. Gallstone in the gallbladder with no biliary tract obstruction. 3. Scattered diverticulosis of the descending and sigmoid colon without inflammatory changes. Jeremias Worthy MD Chest X-Ray 09/15/17 0850 Signed Impressions: Service Date/Time: August 09:36 - CONCLUSION: No acute disease. No significant change has occurred. Jeremias Worthy MD Pelvis Ultrasound 09/15/17 0000 Signed Impressions: Service Date/Time: August 12:22 - CONCLUSION: Large complex cystic lesions in the midline measuring 12.7 x 10.4 x 10.8 cm and within the left adnexal region measuring 14.3 x 10.0 x 8.8 cm raising the possibility of ovarian neoplasm until proven otherwise. Nilesh Salas MD Objective Remarks awake and alert, no distress anciteric lungs- no rales regular rhythm abdomen soft, nontender, good bowel sounds extremities no edema A/P Problem List: (1) Pelvic mass ICD Code: R19.00 - Intra-abdominal and pelvic swelling, mass and lump, unspecified site Status: Acute Assessment and Plan 77yF with severe life-threatening anemia, new pelvic mass. Severe life-threatening anemia. Guaiac negative 1. Improved after 4 units of packed RBC. She is iron deficient continue IV iron. Hematology following Large pelvic mass with elevated CA 125. - pathology benign - S/P IV iron x 3 -H&H stable - start Fe [id number] mg po bid Lactic Acidosis- secondary to severe anemia. Resolved Acute hypoxemia- secondary to anemia. Improved. Continue supplemental oxygen COPD. Stable continue nebulization Metabolic encephalopathy. Resolved History of DVT of the left lower extremity. Continue to hold Xarelto because of severe anemia. Lower extremity Doppler negative Multiple medical conditions of hypertension, GERD, diabetes mellitus, chronic respiratory failure on nasal cannula, anxiety and depression. Continue outpatient medications DVT prophylaxis with SCDs, avoid pharmacologic dvt prophylaxis until active anemia stable. OP ff up Tigre Redding MD Sep 21, 2017 11:54
[2017-09-21 12:00] VITALS: BP 137/80; PULSE 83; PULSE 92; RESP 17; TEMP 98; O2SAT 90
[2017-09-21] MEDS ORDERED: FERROUS SULFATE 325 MG (65 MG ELEMENTAL IRON) TAB PO SCH (12:00)
[2017-09-21] MEDS ORDERED: FERR325T20 PO (12:06)
[2017-09-21] MEDS: FUROSEMIDE 20 MG TAB PO SCH (12:42)
--- NOTE | 2017-09-21 18:34 | HHI.DS ---
Discharge Summary Admission Date Sep 15, 2017 at 10:32 Discharge Date: Sep 21, 2017 Admitting Diagnosis Hemorrhagic shock, respiratory acidosis (1) Iron deficiency anemia due to chronic blood loss ICD Code: D50.0 - Iron deficiency anemia secondary to blood loss (chronic) Diagnosis: Principal (2) Pelvic mass ICD Code: R19.00 - Intra-abdominal and pelvic swelling, mass and lump, unspecified site Diagnosis: Secondary Status: Acute Procedures 09/19 Examination under anesthesia, fractional dilation and curettage, cystoscopy. Brief History - From Admission This is a 77yF with history of COPD who presents with severe fatigue and frequent falls. She was severely altered when she was admitted by EMS so no history was obtainable by her. In the emergency department, she was found to have a hgb 2. she was given 3 units PRBC emergently. her mental status improved with blood transfusion. When I evaluated the patient, she was awake and alert. she is, however, very confused and only oriented to person. she does endorse frequent falls and fatigue. due to her confusion, she is a very poor historian and very difficult to obtain a reliable history from. ROS is essentially unobtainable other than her frequent falls and fatigue. she continues to perseverate on wanting to go home. When asked additional questions about her medical history, she keeps stating "I'm falling a lot. and I'm very tired." After blood transfusions, she is on 1L o2 by NC and hemodynamically stable, and has remained stable for 8 hours in the emergency department. As part of the work-up for her anemia, CT chest/abd/pelvis demonstrates a very large cystic mass in her pelvis which is concerning for malignancy. she states she knows nothing of this. CBC/BMP: 09/21/17 0540 09/21/17 0540 Significant Findings Laboratory Tests Test 09/19/17 00:07 09/19/17 04:40 09/19/17 12:43 09/19/17 17:17 Red Blood Count 3.08 MIL/MM3 (4.00-5.30) Hemoglobin 8.4 GM/DL (11.6-15.3) Hematocrit 26.5 % (35.0-46.0) Mean Corpuscular Hemoglobin Concent 31.5 % (32.0-36.0) Red Cell Distribution Width 20.7 % (11.6-17.2) Random Glucose 120 MG/DL (74-106) Calcium Level 8.0 MG/DL (8.5-10.1) Carbon Dioxide Level 34.6 MEQ/L (21.0-32.0) Anion Gap 3 MEQ/L (5-15) Estimat Glomerular Filtration Rate 72 ML/MIN (>89) Blood Gas HCO3 31 mmol/L (22-26) 34 mmol/L (22-26) Blood Gas Base Excess 6.2 mmol/L (-2-2) 8.5 mmol/L (-2-2) Arterial Blood pH 7.43 (7.380-7.420) 7.34 (7.380-7.420) Arterial Blood Partial Pressure CO2 47 mmHg (38-42) 65 mmHg (38-42) Arterial Blood Oxygen Content 10.5 Vol % (12.0-20.0) 10.5 Vol % (12.0-20.0) Blood Gas Hemoglobin 7.6 G/DL (12.0-16.0) 7.4 G/DL (12.0-16.0) Arterial Blood Partial Pressure O2 164 mmHg (61-120) Test 09/20/17 04:07 09/21/17 05:40 Red Blood Count 2.72 MIL/MM3 (4.00-5.30) 2.83 MIL/MM3 (4.00-5.30) Hemoglobin 7.5 GM/DL (11.6-15.3) 7.9 GM/DL (11.6-15.3) Hematocrit 23.5 % (35.0-46.0) 24.7 % (35.0-46.0) Red Cell Distribution Width 20.9 % (11.6-17.2) 21.6 % (11.6-17.2) Calcium Level 7.8 MG/DL (8.5-10.1) 7.5 MG/DL (8.5-10.1) Phosphorus Level 0.9 MG/DL (2.5-4.9) Chloride Level 108 MEQ/L (98-107) Estimat Glomerular Filtration Rate 74 ML/MIN (>89) 61 ML/MIN (>89) Carbon Dioxide Level 32.2 MEQ/L (21.0-32.0) PE at Discharge awake and alert, no distress anciteric lungs- no rales regular rhythm abdomen soft, nontender, good bowel sounds extremities no edema Pt update on day of discharge no pain up and ambulating Hospital Course 77yF with severe life-threatening anemia, new pelvic mass. Severe life-threatening anemia. Guaiac negative 1. Improved after 4 units of packed RBC. She is iron deficient continue IV iron. Large pelvic mass with elevated CA 125. - pathology benign - S/P IV iron x 3 -H&H stable - start Fe [id number] mg po bid Lactic Acidosis- secondary to severe anemia. Resolved Acute hypoxemia- secondary to anemia. Improved. Continue supplemental oxygen COPD. Stable continue nebulization Metabolic encephalopathy. Resolved History of DVT of the left lower extremity. Continue to hold Xarelto because of severe anemia. Lower extremity Doppler negative Multiple medical conditions of hypertension, GERD, diabetes mellitus, chronic respiratory failure on nasal cannula, anxiety and depression. Continue outpatient medications DVT prophylaxis with SCDs, avoid pharmacologic dvt prophylaxis until active anemia stable. OP ff up Pt Condition on Discharge: Stable Discharge Disposition: Disch w/ Home Health Serv Discharge Time: > 30 minutes Discharge Instructions DIET: Follow Instructions for: As Tolerated, No Restrictions Speech Therapy-Diet Recommends: Regular Activities you can perform: Weight Bearing as Ming Activities to Avoid: Prolonged Standing, Strenuous Activity Follow up Referrals: Appointment for Follow Up - 1 Week @ [facility] Appointment for Follow Up - 1 Week @ [facility] - 1 Week with Jessica Fatima MD [facility] - 1 Week with [facility] Follow-up - 3-5 Days with [facility] Follow-up - 3-5 Days @ [facility] New Orders: CBC NO DIFF - 09/23/17 New Medications: Ferrous Sulfate (Ferosul) 325 Mg (65 Mg Iron) Tablet 325 MG PO BID@12,17 for iron def for 30 Days, #60 TAB Continued Medications: Alprazolam (Alprazolam) 0.5 Mg Tab 0.5 MG PO HS, #10 TAB 0 Refills Budesonide-Formoterol Inh (Symbicort Inh) 160-4.5 Mcg/Act Aero 2 PUFF INH BID, #1 INHALER 1 Refill Ezetimibe (Zetia) 10 Mg Tab 10 MG PO DAILY, #30 TAB 1 Refill Furosemide (Furosemide) 20 Mg Tab 20 MG PO DAILY@1200, #30 TAB 1 Refill Omeprazole (Omeprazole) 20 Mg Tab 20 MG PO DAILY, #30 TAB 1 Refill Pravastatin (Pravachol) 80 Mg Tab 80 MG PO DAILY, #30 TAB 1 Refill Discontinued Medications: Rivaroxaban (Xarelto) 15 Mg Tab 15 MG PO BID, #60 TAB 1 Refill Tigre Redding MD Sep 21, 2017 18:34
[2017-09-22] MEDS ORDERED: PANTOPRAZOLE SOD 40 MG DELAYED RELEASE TAB PO SCH (09:00)
== END 2017-09-21 13:59 | disposition home health service (06) | DRG 853 ==
LOC: NEPE 08:44 → NEDA 10:32 → N04B 20:53 → HCIN 09-16 13:38 → N03B 09-19 13:50 → N03A 09-19 17:07 → N03B 09-19 17:07 → N04A 09-20 20:11
PROVIDERS: ADMIT Internal Medicine; ATTEND Internal Medicine
PROC: 30233N1 Transfusion of Nonautologous Red Blood Cells into Peripheral Vein, Percutaneous Approach (ICD-10-PCS; 2017-09-15)
PROC: 5A1935Z Respiratory Ventilation, Less than 24 Consecutive Hours (ICD-10-PCS; 2017-09-19)
PROC: 0TJB8ZZ Inspection of Bladder, Via Natural or Artificial Opening Endoscopic (ICD-10-PCS; 2017-09-19)
PROC: 0BH17EZ Insertion of Endotracheal Airway into Trachea, Via Natural or Artificial Opening (ICD-10-PCS; 2017-09-19)
PROC: 0UDB7ZX Extraction of Endometrium, Via Natural or Artificial Opening, Diagnostic (ICD-10-PCS; principal; 2017-09-19 09:43)
DX: R57.8 Other shock (principal); J95.821 Acute postprocedural respiratory failure; G93.41 Metabolic encephalopathy; E87.2 Acidosis; J96.10 Chronic respiratory failure, unspecified whether with hypoxia or hypercapnia; J44.9 Chronic obstructive pulmonary disease, unspecified; I50.9 Heart failure, unspecified; I11.0 Hypertensive heart disease with heart failure; Z99.81 Dependence on supplemental oxygen; B37.2 Candidiasis of skin and nail; D50.0 Iron deficiency anemia secondary to blood loss (chronic); D63.8 Anemia in other chronic diseases classified elsewhere; K21.9 Gastro-esophageal reflux disease without esophagitis; F32.9 Major depressive disorder, single episode, unspecified; F41.9 Anxiety disorder, unspecified; R19.00 Intra-abdominal and pelvic swelling, mass and lump, unspecified site; K80.20 Calculus of gallbladder without cholecystitis without obstruction; K57.30 Diverticulosis of large intestine without perforation or abscess without bleeding; R29.6 Repeated falls; E11.9 Type 2 diabetes mellitus without complications; Z96.651 Presence of right artificial knee joint; E78.5 Hyperlipidemia, unspecified; E66.01 Morbid (severe) obesity due to excess calories; N81.6 Rectocele; N81.10 Cystocele, unspecified; R97.1 Elevated cancer antigen 125 [CA 125]; E83.39 Other disorders of phosphorus metabolism; Z91.81 History of falling; Z79.01 Long term (current) use of anticoagulants; Z86.718 Personal history of other venous thrombosis and embolism; Z86.73 Personal history of transient ischemic attack (TIA), and cerebral infarction without residual deficits; Z87.891 Personal history of nicotine dependence; Z68.38 Body mass index [BMI] 38.0-38.9, adult
CPT/HCPCS: 36430; 36600; 51702; 71045; 71260; 74177; 76856; 80048; 80053; 81001; 82272; 82550; 82607; 82728; 82746; 82805; 82948; 83010; 83540; 83550; 83605; 83615; 83690; 83735; 83880; 84100; 84132; 84155; 84165; 84484; 85007; 85014; 85018; 85027; 85044; 85610; 85730; 86304; 86850; 86900; 86901; 86920; 87040; 87804; 88305; 93005; 93970; 93975; 94002; 94003; 94150; 94640; 94664; 94667; 94668; 96365; 96367; 99292; C9113; J0131; J0330; J1100; J1756; J1815; J1940; J2405; J2543; J3010; J3370; J7030; J7050; J7120; J7626; P9016; Q9967